=== PATIENT | female | born 1960 | race Caucasian/White ===

== ENCOUNTER 2023-05-24 09:26 | Outpatient (CLI) | payer BC, SELFPAY ==
--- NOTE | 2023-05-24 09:45 | CRLHL7_ITS ---
For Patients: As a result of the Cures Act, medical imaging exams and procedure reports are released immediately into your electronic medical record. You may view this report before your referring provider. If you have questions, please contact your health care provider. DIGITAL DIAGNOSTIC BILATERAL MAMMOGRAM USING TOMOSYNTHESIS AND COMPUTER-AIDED DETECTION LEFT BREAST ULTRASOUND CLINICAL HISTORY: LEFT breast lump. COMPARISON: 03/18/2015. TECHNIQUE: Digital BILATERAL mammogram in four projections. Tomosynthesis and CAD utilized. Real-time ultrasound imaging of LEFT breast with imaging documentation. Scanning was performed by both the technologist and the radiologist. BREAST COMPOSITION: There are areas of scattered fibroglandular density. FINDINGS: 3D CC/MLO BILATERAL mammogram images submitted. Normal breast tissue RIGHT breast. There is a lobular mass within the LEFT breast in the upper outer quadrant corresponding to the area of palpable concern. Benign calcifications are present. Targeted ultrasound LEFT breast performed. At 12 o`clock 9 cm from the nipple there is a taller than wide microlobular hypoechoic mass with distal shadowing measuring 1.5 x 2.0 x 1.6 cm. No suspicious lymph nodes in the LEFT axilla. IMPRESSION: Suspicious 2 cm mass LEFT breast 12 o`clock 9 cm from the nipple. RECOMMENDATIONS: Ultrasound-guided core needle biopsy. Results and recommendations discussed with the patient. BI-RADS Category 4: Suspicious A lay language report of this examination will be provided to the patient. Dictated by Domingo Jackson MD @ 05/24/2023 10:41:21 AM jj/Dictated by: Domingo Jackson MD @ 05/24/2023 10:41:00 AM (Electronically Signed)
--- NOTE | 2023-05-24 10:15 | CRLHL7_ITS ---
For Patients: As a result of the Cures Act, medical imaging exams and procedure reports are released immediately into your electronic medical record. You may view this report before your referring provider. If you have questions, please contact your health care provider. PLEASE SEE DIGITAL DIAGNOSTIC BILATERAL MAMMOGRAM PERFORMED SAME DAY CRL:allen villa/Dictated by: Domingo Jackson MD @ 05/24/2023 10:41:00 AM (Electronically Signed)
== END 2023-05-24 09:27 | disposition home or self-care (01) ==
LOC: MAMMO 09:27
PROVIDERS: PCP Emergency Medicine; Visit Provider Emergency Medicine
DX: N63.21 Unspecified lump in the left breast, upper outer quadrant (principal)
CPT/HCPCS: 76642; 77066; G0279

== ENCOUNTER 2023-05-30 10:48 | Outpatient (CLI) | payer BC, SELFPAY ==
--- NOTE | 2023-05-30 11:15 | CRLHL7_ITS ---
For Patients: As a result of the Century Cures Act, medical imaging exams and procedure reports are released immediately into your electronic medical record. You may view this report before your referring provider. If you have questions, please contact your health care provider. LEFT BREAST ULTRASOUND-GUIDED BIOPSY INDICATION: LEFT breast mass 12 o`clock position measuring 1.5 x 2.0 x 1.6 cm. Ultrasound-guided biopsy for diagnostic purposes. Informed consent was obtained. Benefits and risks of the procedure were discussed with the patient. Clip placement and a post-procedure mammogram were discussed with the patient. She agrees to proceed. A time-out was performed to verify correct patient and procedure. Utilizing sterile technique and 1 percent lidocaine for local anesthetic, a 14-gauge Bard biopsy gun was utilized and 5 passes were made into the 2 cm lesion 12 o`clock position 9 cm from the nipple. The patient tolerated the procedure well. No immediate complications. A post-procedure clip placement was performed without difficulty. A post-procedure mammogram will be performed. CC and true ML view of the LEFT breast performed after biopsy and clip placement. Breast composition: Heterogeneously dense. A biopsy clip was placed at the 12 o`clock position 9 cm from the nipple within the lesion. There is minor perilesional hemorrhage. The clip placement is satisfactory. IMPRESSION: 1. Technically successful ultrasound-guided LEFT breast biopsy. 2. Clip placement perfomed. 3. Post-procedure mammogram performed. Dictated by: Cezar Tena MD @05/30/2023 11:59:52 AM/ynes MELVIN/Dictated by: Cezar Tena MD @ 05/30/2023 11:59:00 AM ADDENDUM: Pathology consistent with grade III/III invasive ductal carcinoma. This is concordant. Appropriate action recommended. Dictated by: Domingo Jackson MD @06/03/2023 11:25:27 AM / CRL:jj (Electronically Signed)
--- NOTE | 2023-05-30 12:00 | CRLHL7_ITS ---
For Patients: As a result of the Century Cures Act, medical imaging exams and procedure reports are released immediately into your electronic medical record. You may view this report before your referring provider. If you have questions, please contact your health care provider. PLEASE SEE LEFT ULTRASOUND-GUIDED BIOPSY OF SAME DAY. CRL:ynes MELVIN/Dictated by: Cezar Tena MD @ 05/30/2023 12:00:00 PM (Electronically Signed)
== END 2023-05-30 10:49 | disposition home or self-care (01) ==
LOC: MAMMO 10:48
PROVIDERS: PCP Emergency Medicine; Visit Provider Emergency Medicine
DX: N63.20 Unspecified lump in the left breast, unspecified quadrant (principal); R92.8 Other abnormal and inconclusive findings on diagnostic imaging of breast
CPT/HCPCS: 19083; 77065; 88305; 88341; 88342; 88360; 88361; A4648; A4649

== ENCOUNTER 2023-06-04 15:01 | Outpatient (CLI) | payer BC, SELFPAY ==
--- NOTE | 2023-06-04 15:30 | CRLHL7_ITS ---
For Patients: As a result of the 21st Century Cures Act, medical imaging exams and procedure reports are released immediately into your electronic medical record. You may view this report before your referring provider. If you have questions, please contact your health care provider. BILATERAL BREAST MRI WITHOUT AND WITH GADOLINIUM, 06/04/2023 CLINICAL HISTORY: 62-year-old female with recently diagnosed LEFT breast cancer. INDICATION FOR BREAST MRI: Staging of newly diagnosed breast cancer and screening of contralateral breast. Regional lymph nodes will also be assessed. COMPARISON STUDIES: Mammogram, LEFT breast and axillary ultrasound 05/24/2023, ultrasound-guided biopsy and postprocedure mammogram 05/30/2023. CONTRAST: 15 cc of Dotarem. TECHNIQUE: The patient was positioned prone using a breast coil. Multiple imaging sequences were obtained using 1-1.5 mm thick slices with no gap. The image sequences include T2-weighted STIR in the axial plane, T1-weighted nonfat-saturated gradient echo in the axial plane, pre- and post-contrast T1-weighted FLASH 3D with fat suppression in the axial plane, and T1-weighted FLASH high resolution 3D with fat suppression in the sagittal plane. Image post-processing was performed on a [employer] workstation. Complex 3D rendering including maximum intensity projections (MIPS) and volumetric renderings were obtained to optimize visualization of the extent of pathology and relationship to the nipple, skin, and chest wall. This aids in determining feasibility of breast conservation surgery. Subtraction, multiplanar reconstruction, mean curve determination, and angiogenesis mapping were also performed. The study was technically adequate. FINDINGS: Amount of Fibroglandular Tissue: Scattered fibroglandular tissue. Breast Background Enhancement: Minimal. RIGHT Breast: No suspicious areas of enhancement. LEFT Breast: At 12 o`clock, middle depth, approximately 8 cm from the nipple there is an irregular mass with irregular margins and heterogeneous internal enhancement measuring 1.4 x 2.3 x 2.7 cm. This demonstrates fast initial enhancement with washout. Artifact from a biopsy marker clip is seen within the mass. This is consistent with the biopsy-proven malignancy. Lymph Nodes: No adenopathy. IMPRESSIONS AND RECOMMENDATIONS: LEFT Breast: 1. Mass at 12 o`clock, middle depth measuring up to 2.7 cm on MRI is consistent with the biopsy-proven malignancy. No additional suspicious areas of enhancement. 2. No adenopathy. RIGHT Breast: No MRI evidence of contralateral malignancy. BI-RADS Category 6: Known biopsy-proven malignancy Dictated by Eli Lawson MD @ 06/06/2023 1:22:54 PM jj/Dictated by: Eli Lawson MD @ 06/06/2023 1:22:00 PM (Electronically Signed)
== END 2023-06-04 15:02 | disposition home or self-care (01) ==
PROVIDERS: PCP Emergency Medicine; Visit Provider Surgery
DX: C50.912 Malignant neoplasm of unspecified site of left female breast (principal)
CPT/HCPCS: 77049; A9575

== ENCOUNTER 2023-06-13 09:30 | Outpatient (CLI) | payer BC, SELFPAY | END 2023-06-13 09:31 | disposition home or self-care (01) | LOC: LKVREF 09:30 | PROVIDERS: PCP Emergency Medicine; Visit Provider Emergency Medicine | DX: Z01.818 Encounter for other preprocedural examination (principal); E03.9 Hypothyroidism, unspecified; E10.9 Type 1 diabetes mellitus without complications | CPT/HCPCS: 84443 ==

== ENCOUNTER 2023-06-14 16:23 | Outpatient (CLI) | payer BC, SELFPAY | END 2023-06-14 16:24 | disposition home or self-care (01) | LOC: NFLDREF 06-15 12:52 | PROVIDERS: PCP Emergency Medicine; Referring Provider Emergency Medicine; Visit Provider Emergency Medicine | DX: E87.5 Hyperkalemia (principal) | CPT/HCPCS: 84132 ==

== ENCOUNTER 2023-06-18 07:36 | Day surgery (SDC) | payer BC, SELFPAY ==
[2023-06-18] MEDS: LACTATED RINGERS 1000 ML 1,000 ML 100 ML IV (07:50)
[2023-06-18 07:53] VITALS: BP 141/81; PULSE 76; RESP 16; TEMP 36.6; O2SAT 97; BMI 28.4
[2023-06-18] MEDS: SODIUM CHLORIDE 0.9 % (FLUSH) 10 ML SYRINGE IVF (08:03)
--- NOTE | 2023-06-18 09:00 | CRLHL7_ITS ---
For Patients: As a result of the Century Cures Act, medical imaging exams and procedure reports are released immediately into your electronic medical record. You may view this report before your referring provider. If you have questions, please contact your health care provider. INDICATION: Left-sided breast cancer. Injection for sentinel lymph node scintigraphy. PROCEDURE: Informed consent was obtained by the on-site staff. The benefits and risks of the injection were discussed with the patient. The patient agreed to proceed. The on-site staff utilized sterile technique and 1 percent xylocaine for local anesthetic. Subsequently, 550 microcuries of technetium filtered sulfur colloid was injected within an intradermal location within the superior lateral left breast. No immediate complications documented. No subsequent imaging. IMPRESSION: Left breast injection for sentinel lymph node scintigraphy. Dictated by Cezar Tena MD @ 06/18/2023 4:21:32 PM (Electronically Signed)
--- NOTE | 2023-06-18 09:11 | W.ANESCHARGE ---
Anesthesia Charges Start Date/Time Anesthesia Start Date: 06/18/23 Anesthesia Start Time: 10:30 Stop Date/Time Anesthesia Stop Date: 06/18/23 Anesthesia Stop Time: 14:11
--- NOTE | 2023-06-18 09:15 | CRLHL7_ITS ---
For Patients: As a result of the Cures Act, medical imaging exams and procedure reports are released immediately into your electronic medical record. You may view this report before your referring provider. If you have questions, please contact your health care provider. BREAST WIRE LOCALIZATION USING ULTRASOUND GUIDANCE CLINICAL HISTORY: Biopsy-proven malignancy LEFT breast. LATERALITY: LEFT breast. LESION: Taller than wide hypoechoic solid mass 12 o`clock 9 cm from the nipple measuring 1.5 x 2.0 x 1.6 cm. LOCALIZATION WIRE: Kopans hookwire. TECHNIQUE: The localization wire was placed using real-time ultrasound guidance with image documentation. Cranial-caudal and medial-lateral digital mammograms were obtained after localization wire placement. CONSENT and TIME OUT: The procedure, risks, and alternatives were explained to the patient and a consent was signed. [place] Protocol was followed including pre-procedure verification that relevant information/documentation was available, reviewed and properly matched to the patient; consent accurate and complete; and equipment and supplies available. Time Out was conducted just prior to starting procedure to verify the four required elements: patient identity, correct side/site marked (if applicable), procedure, relevant images/results properly labeled and displayed (if applicable). PROCEDURE: The skin was prepped with ChloraPrep and 6 cc of 1% lidocaine was injected for local anesthesia. The localization wire was placed within or near the targeted breast lesion using ultrasound guidance. The patient tolerated the procedure well. PROXIMITY OF WIRE TO LESION: Within the lesion immediately adjacent to the clip. IMPRESSION: Successful breast wire localization. ACR not applicable Dictated by Domingo Jackson MD @ 06/18/2023 10:38:48 AM/ynes MELVIN/Dictated by: Domingo Jackson MD @ 06/18/2023 10:38:00 AM (Electronically Signed)
--- NOTE | 2023-06-18 10:00 | CRLHL7_ITS ---
For Patients: As a result of the Century Cures Act, medical imaging exams and procedure reports are released immediately into your electronic medical record. You may view this report before your referring provider. If you have questions, please contact your health care provider. PLEASE SEE LEFT ULTRASOUND-GUIDED BIOPSY OF SAME DAY. CRL:ynes MELVIN/Dictated by: Domingo Jackson MD @ 06/18/2023 10:38:00 AM (Electronically Signed)
[2023-06-18] MEDS: CEFAZOLIN 2 GM INJ IVP (10:35)
[2023-06-18] MEDS: ISOSULFAN BLUE 5 ML VIAL INJECTION (10:41)
[2023-06-18] MEDS: BUPIVACAINE 0.5% 30 ML INJECTION ×2 (10:54→13:30)
[2023-06-18] MEDS: LIDOCAINE 1 % PF 30 ML INJECTION ×2 (10:54→13:30)
--- NOTE | 2023-06-18 11:51 | CRLHL7_ITS ---
For Patients: As a result of the Cures Act, medical imaging exams and procedure reports are released immediately into your electronic medical record. You may view this report before your referring provider. If you have questions, please contact your health care provider. LEFT BREAST SPECIMEN CLINICAL HISTORY: Left breast cancer. COMPARISON: 05/24/2023. FINDINGS: Two views LEFT breast specimen demonstrates the biopsied mass, localization wire and biopsy clip. IMPRESSION: The biopsied mass, wire and clip were all located within the specimen. ACR not applicable. Dictated by Domingo Jackson MD @ 06/18/2023 12:08:01 PM/ynes MELVIN/Dictated by: Domingo Jackson MD @ 06/18/2023 12:08:00 PM (Electronically Signed)
--- NOTE | 2023-06-18 13:34 | CRLHL7_ITS ---
For Patients: As a result of the Century Cures Act, medical imaging exams and procedure reports are released immediately into your electronic medical record. You may view this report before your referring provider. If you have questions, please contact your health care provider. Indication: Port placement Technique: Single fluoroscopic image of the chest. Fluoroscopic time 55.4 seconds. IMPRESSION: Fluoroscopic guidance for right-sided port placement. Dictated by Domingo Jackson MD @ 06/19/2023 12:34:46 PM (Electronically Signed)
[2023-06-18] MEDS: HEPARIN 500 UNIT/5 ML SYRINGE IVF (13:51)
[2023-06-18] MEDS: 0.9 % SODIUM CHLORIDE 50 ml INJECTION (13:51)
[2023-06-18 14:10] VITALS: BP 95/53; PULSE 57; RESP 20; TEMP 36.4; O2SAT 89
--- NOTE | 2023-06-18 14:10 | W.ANESCHARGE ---
Anesthesia Charges Start Date/Time Anesthesia Start Date: 06/18/23 Anesthesia Start Time: 10:30 Stop Date/Time Anesthesia Stop Date: 06/18/23 Anesthesia Stop Time: 14:11
--- NOTE | 2023-06-18 14:16 | P.GSOP_ITS ---
Operative Note Pre-op diagnosis: Invasive ductal carcinoma, left breast Post-op diagnosis: Same Type of Procedure: 1. Wire localized lumpectomy of left breast cancer 2. Injection of nuclear medicine tracer 3. Mulliken lymph node biopsy 4. Right internal jugular port a catheter placement Indications: Patient is a 63-year-old female who was seen in clinic for newly diagnosed invasive ductal carcinoma of the left breast. Please see Oncology note and consultation note for full discussion regarding treatment options. Risks and benefits of all portions of the procedure stated above were discussed at length the patient. Risks and benefits of operative intervention were discussed at length with the patient. Risks included but was not limited to: Bleeding, infection, risk of damage to surrounding structures, specifically we discussed risk of damage to nerves within the axilla and pulmonary injury during port placement. We also reviewed the possible need for additional procedures, specifically in the setting of positive margins, risk of hematoma, seroma or lymphatic leak and postoperative complications such as pneumonia, pulmonary emboli or IA. All questions and concerns were addressed with the patient agreeing to proceed. Procedure Description: Prior to arrival in the operating room, the patient was taken to radiology where a wire was placed to localize the previously placed clip. In the same Day surgery Center I performed injection of a radiocolloid. The patient was then brought to the operating room where anesthesia was induced. I injected 3 ml of lymphazurin blue and performed breast massage for a period of 5 minutes. The left breast and axilla were prepped and draped in the usual sterile fashion. Timeout was confirmed. Local anesthesia was infiltrated into a transverse incision in the upper outer portion of the breast. Using electrocautery, the segment of breast tissue containing the tip of the wire was excised. This was sent for evaluation. Radiology called back and confirmed that the clip, and wire were present within the specimen. Pathology then called back and stated that margins were close on the anterior-medial and superior borders, so requested an additional specimen. Using electrocautery I reexcised the anterior, medial and superior border of the cavity. This was inked for identification and sent for permanent evaluation. We then elected to perform the sentinel node aspect of the procedure. Using the neoprobe, the area of maximal counts was identified. I was able to use the same transverse incision of the upper outer portion of the left breast. Using a combination of blunt dissection and electrocautery, a hot and blue node was resected. One additional node was resected in a similar fashion, taking care to tie off and cauterize the lymphatics. These were sent to pathology for permanent evaluation. The wounds were irrigated and all irrigant suctioned from the wound. Circu mferential undermining of the remaining breast tissue was performed so that tissue could fill the resulting cavity and minimize any cosmetic defects. Hemostasis was assured with electrocautery. Clarissa was placed within the breast cavity. 4 clips were placed around the cavity to help assist with identification for radiation. The wound was then closed in layers using absorbable suture, and Dermbond was placed over the wound. We then removed all dirty equipment and redraped for the second portion of the procedure. The operative field was prepped and draped in usual sterile fashion. The patient's right internal jugular vein was visualized using ultrasound. Local anesthetic was injected into the neck skin above the vein. A skin marty was made and the vein accessed percutaneously via Seldinger technique using ultrasound guidance. Placement into the vein was confirmed with C-arm. Next local anesthetic was injected into the skin below the clavicle and along the proposed tract to the neck incision. A skin incision was then made with a 15 blade and a pocket created in the chest wall with cautery. A tunneler was then used to thread the catheter from the chest wall pocket to the neck incision. Once this was done fluoroscopy was brought into the field. Over the wire the tract was dilated using fluoroscopy. The wire and the dilator were then removed leaving the sheath intact in the vein. Through this the catheter was threaded. Using fluoroscopy the catheter was positioned into the distal SVC. The catheter was noted to flush and aspirate easily. The catheter was then connected to the port. The port was placed in the pocket, which snugly fit the port and no stay sutures were placed. It was noted to flush and aspirate easily. This was then locked with heparinized saline. The skin was closed with absorbable suture. Sterile dressings were applied. Instrument sponge and needle counts were correct at the end of the case. The patient was woken and taken to the PACU in stable condition. Findings: Left breast where localized lumpectomy. Pathology confirmed negative margins. Mulliken node biopsy was performed using Isosulfan blue dye and radiotracer; all identified blue and significantly radioactive nodes as well as any additional suspicious nodes were removed. Successful placement of a right internal jugular port a catheter. Anesthesia: MAC and local Surgeon: Danelle Lo MD Estimated blood loss (mL): 100 Additional Specimen Information: 1. Left breast mass 2. Mulliken lymph node 1 3. Mulliken lymph node 2 Condition: stable Disposition: same day Date of procedure: 06/18/23
[2023-06-18 14:25] VITALS: BP 135/75; PULSE 71; RESP 20; TEMP 36.4; O2SAT 96
[2023-06-18 14:40] VITALS: BP 144/75; PULSE 70; RESP 20; O2SAT 96
[2023-06-18 14:55] VITALS: BP 137/74; PULSE 72; RESP 20; TEMP 36.4; O2SAT 97
== END 2023-06-18 15:27 | disposition home or self-care (01) ==
PROVIDERS: PCP Emergency Medicine; Visit Provider Surgery
PROC: (CPT 19125; principal; 2023-06-18 10:15)
PROC: (CPT 19125; 2023-06-18 10:15)
PROC: (CPT 19125; 2023-06-18 10:15)
DX: C50.812 Malignant neoplasm of overlapping sites of left female breast (principal); Z17.1 Estrogen receptor negative status [ER-]; Z45.2 Encounter for adjustment and management of vascular access device
CPT/HCPCS: 19125; 36561; 38500; 1610; 19285; 38792; 71045; 76000; 77065; 82962; 88305; 88307; A9541; C1769; C1788; J0665; J0690; J1100; J1642; J1885; J2001; J2405; J2704; J3010; J3490; J7120

== ENCOUNTER 2023-07-19 12:44 | Outpatient (CLI) | payer BC, SELFPAY | END 2023-07-19 12:45 | disposition home or self-care (01) | LOC: RAD 12:45 | PROVIDERS: PCP Emergency Medicine; Visit Provider Internal Medicine Hematology & Oncology | DX: C50.912 Malignant neoplasm of unspecified site of left female breast (principal); I35.0 Nonrheumatic aortic (valve) stenosis; Z01.818 Encounter for other preprocedural examination | CPT/HCPCS: 93306 ==

== ENCOUNTER 2023-07-19 15:30 | Outpatient (RCR) | payer BC, SELFPAY | END 2023-11-16 23:59 | disposition home or self-care (01) | PROVIDERS: PCP Emergency Medicine; Visit Provider Surgery | DX: C50.911 Malignant neoplasm of unspecified site of right female breast (principal); R29.3 Abnormal posture; Z51.89 Encounter for other specified aftercare | CPT/HCPCS: 97162; 97165; 97535 ==

== ENCOUNTER 2023-08-21 15:57 | Outpatient (CLI) | payer BC, SELFPAY | END 2023-08-21 15:58 | disposition home or self-care (01) | LOC: NFLDREF 08-23 10:37 | PROVIDERS: PCP Emergency Medicine; Referring Provider Emergency Medicine; Visit Provider Internal Medicine Hematology & Oncology | DX: C50.912 Malignant neoplasm of unspecified site of left female breast (principal) | CPT/HCPCS: 80053 ==

== ENCOUNTER 2023-10-17 09:54 | Outpatient (CLI) | payer BC, SELFPAY ==
--- OUTSIDE RECORDS SUMMARY | 2023-10-17 10:04 | XMS_ITS | Clinical Summary ---
Author Name Unknown Organization [facility] Address [address] [place] [address]. [place] [address] Care Team Providers Care Power Plant Inspector Name Role Phone No Ref-Primary, Physician Primary Care Provider Allergies No known active allergies Medications Medication Sig Dispensed Refills Start Date End Date Status azithromycin (ZITHROMAX) 250 MG tabletIndications:Bro nchitis 2 tablets day 1 then 1 tablet daily for 4 days 6 tablet 0 12/05/2019 Active Active Problems No known active problems Social History Tobacco Use Types Packs/Day Years Used Date Smoking Tobacco: Never Smokeless Tobacco: Never Adolescent Education Answer Date Record ed Getting School Help Needed Not on file 06/29 Sex and Gender Information Value Date Recorded Sex Assigned at Not on file Gender Identity Not on file Sexual Orientation Not on file Last Filed Vital Signs Vital Sign Reading Time Taken Comments Blood Pressure 124/78 12/05/2019 2:59 PM FIREPERSON Pulse 84 12/05/2019 2:59 PM FIREPERSON Temperature 37.8 ??C (100 ??F) 12/05/2019 2:59 PM FIREPERSON Respiratory Rate 16 12/05/2019 2:59 PM FIREPERSON Oxygen Saturation 96% 12/05/2019 2:59 PM FIREPERSON Inhaled Oxygen Concentration - - Weight 68 kg (150 lb) 12/05/2019 2:59 PM FIREPERSON Height - - Body Mass Index - - Plan of Treatment Health Maintenance Due Date Last Done Comments ADVANCE CARE PLANNING 1960 ANNUAL REVIEW OF HM ORDERS 1961 CT COLONOGRAPHY 1961 FIT 1961 FLEX SIG 1961 MAMMO SCREENING 1961 YEARLY PREVENTIVE VISIT 1961 sDNA (Cologuard) 1961 COVID-19 Vaccine (#1) 1961 COLONOSCOPY 1971 COLORECTAL CANCER SCREENING 1971 HIV SCREENING 1976 HEPATITIS C SCREENING 1979 DTAP/TDAP/TD IMMUNIZATION (1 - Tdap) 1986 LIPID 2006 ZOSTER IMMUNIZATION (1 of 2) 2011 RSV VACCINE ( & 60+ ) (1 - 1-dose 60+ series) 2021 INFLUENZA VACCINE (#1) 2023 PHQ-2 (once per calendar year) 2023 HPV TEST 05/10/2027 05/10/2022, 05/10/2022 PAP 05/10/2027 05/10/2022 HPV IMMUNIZATION Aged Out No longer e ligible based on patient's age to complete this topic IPV IMMUNIZATION Aged Out No longer e ligible based on patient's age to complete this topic MENINGITIS IMMUNIZATION Aged Out No l onger eligible based on patient's age to complete this topic Pneumococcal Vaccine: Pediatrics (0 to 5 Years) and At-Risk Patients (6 to 64 Years) Aged Out No longer eligible b ased on patient's age to complete this topic RSV MONOCLONAL ANTIBODY Aged Out No l onger eligible based on patient's age to complete this topic Care Teams Power Plant Inspector Relationship Specialty Start Date End Date No Ref-Primary, Physician PCP - General 12/05/19
--- OUTSIDE RECORDS SUMMARY | 2023-10-17 10:05 | XMS_ITS | Referral Summary ---
Author Name Unknown Organization [facility] Address [address] [place] [address]. [place] [address] Care Team Providers Care Water Supply Technician Name Role Phone No Ref-Primary, Physician Primary [...] Comments Blood Pressure 124/78 12/05/2019 2:59 PM PAYROLL CLERK Pulse 84 12/05/2019 2:59 PM PAYROLL CLERK Temperature 37.8 ??C (100 ??F) 12/05/2019 2:59 PM PAYROLL CLERK Respiratory Rate 16 12/05/2019 2:59 PM PAYROLL CLERK Oxygen Saturation 96% 12/05/2019 2:59 PM PAYROLL CLERK Inhaled Oxygen Concentration - - Weight 68 kg (150 lb) 12/05/2019 2:59 PM PAYROLL CLERK Height - - Body Mass Index - - Plan of Treatment Not on file Care Teams Water Supply Technician Relationship Specialty Start Date End Date No Ref-Primary, Physician PCP - General 12/05/19
--- OUTSIDE RECORDS SUMMARY | 2023-10-17 10:05 | XMS_ITS | Clinical Summary ---
Author Name Unknown Organization Count includes the [facility] Address [address] [place] [address] Care Team Providers Care Net Programmer Name Role Phone Unavailable Primary Care Provider Unavailabl e Source Comments You are receiving this document as you are listed as the primary care provider,follow-up provider, or the patient has been referred to you for consultation.This is in compliance with the Medicare and[facility] E[facility] Incentive Program,which states Providers who transition their patient to another setting of careor provider of care or refers their patient to another provider of care shouldprovide summary care record for each transition of care or referral. [facility] Allergies No known active allergies Medications Medication Sig Dispensed Refills Start Date End Date Status insulin isophane (NOVOLIN N) 100 UNIT/ML injection Inject subcutaneously daily. 40 units AM, 12 units PM 0 Active insulin regular (NOVOLIN R) 100 UNIT/ML injection Inject 7 Units subcutaneously daily. Before dinner 0 Active blood glucose (ACCU-CHEK GUIDE) test stripIndications:C ontrolled type 1 diabetes mellitus without complication ([facility]) Use 1 Each to test as needed for Blood Sugar >. Use as directed. 100 Strip 11 06/29/2021 Active lancets (ACCU-CHEK SOFTCLIX)Indicatio ns:Controlled type 1 diabetes mellitus without complication ([facility]) Use 1 Each to test three times a day. 100 Each 11 06/29/2021 Active lancet deviceIndications: Controlled type 1 diabetes mellitus without complication ([facility]) Use 1 Each to test as needed. 1 Each 0 06/29/2021 Active levothyroxine (SYNTHROID) 100 MCG tabletIndications: Hypothyroidism (acquired) ([facility]) Take 1 Tablet by mouth daily. 90 Tablet 3 06/30/2021 Active Social History Tobacco Use Types Packs/Day Years Used Date Smoking Tobacco: Never Smokeless Tobacco: Never Sex and Gender Information Value Date Recorded Sex Assigned at Not on file Gender Identity Not on file Sexual Orientation Not on file Last Filed Vital Signs Vital Sign Reading Time Taken Comments Blood Pressure 194/98 06/29/2021 2:02 PM CDT Pulse 83 06/29/2021 2:02 PM CDT Temperature - - Respiratory Rate - - Oxygen Saturation - - Inhaled Oxygen Concentration - - Weight 68.3 kg (150 lb 8 oz) 06/29/2021 2:02 PM CDT Height 161.3 cm (5' 3.5) 06/29/2021 2:02 PM CDT Body Mass Index 26.24 06/29/2021 2:02 PM CDT Plan of Treatment Health Maintenance Due Date Last Done Comments Cervical Cancer Screening Due 1961 Colon Cancer Screening Plan Due 1961 Diabetes: Eye Exam 1961 Diabetes: Foot Exam 1961 Hep C Screening (Preventive Services) 1961 Mammogram 1961 COVID-19 Vaccine (#1) 1961 Pneumococcal (1 - PCV) 1967 HIV Screening (Preventive Services) 1977 Adult Preventive Visit 1979 Zoster/Shingles (1 of 2) 2011 Diabetes: HGBA1C 09/28/2021 06/29/2021 Diabetes: Creatinine 06/29/2022 06/29/2021 Diabetes: Urine Microalbumin 06/29/2022 06/29/2021 Influenza (#1) 2023 DTaP/Tdap/Td (2 - Tdap) 02/09/2025 02/09/2015 Diabetes: Lipid Panel 06/29/2026 06/29/2021 Cholesterol Discontinued 06/29/2021 HepA Aged Out No longer eligi ble based on patient's age to complete this topic HepB Aged Out No longer eligi ble based on patient's age to complete this topic Hib Aged Out No longer eligi ble based on patient's age to complete this topic IPV (Polio) Aged Out No longer eligi ble based on patient's age to complete this topic MCV4 Aged Out No longer eligi ble based on patient's age to complete this topic
== END 2023-10-17 09:55 | disposition home or self-care (01) ==
LOC: LAB 09:56
PROVIDERS: PCP Emergency Medicine; Visit Provider Physician Assistant
DX: C50.912 Malignant neoplasm of unspecified site of left female breast (principal)
CPT/HCPCS: 36415; 83735

== ENCOUNTER 2023-10-31 13:46 | Outpatient (CLI) | payer BC, SELFPAY ==
--- OUTSIDE RECORDS SUMMARY | 2023-10-31 13:48 | XMS_ITS | Clinical Summary ---
Author Name Unknown Organization [place] Address [facility] [place] [address] Care Team Providers Care Corporate Real Estate Manager Name Role Phone No Ref-Primary, Physician Primary [...] Comments Blood Pressure 124/78 12/05/2019 2:59 PM FIRE DISPATCHER Pulse 84 12/05/2019 2:59 PM FIRE DISPATCHER Temperature 37.8 ??C (100 ??F) 12/05/2019 2:59 PM FIRE DISPATCHER Respiratory Rate 16 12/05/2019 2:59 PM FIRE DISPATCHER Oxygen Saturation 96% 12/05/2019 2:59 PM FIRE DISPATCHER Inhaled Oxygen Concentration - - Weight 68 kg (150 lb) 12/05/2019 2:59 PM FIRE DISPATCHER Height - - Body Mass Index - - Plan of Treatment Health Maintenance Due Date Last Done Comments ADVANCE CARE PLANNING 1960 ANNUAL REVIEW OF HM ORDERS 1961 CT COLONOGRAPHY 1961 FIT 1961 FLEX SIG 1961 MAMMO SCREENING 1961 YEARLY PREVENTIVE VISIT 1961 sDNA (Cologuard) 1961 COLONOSCOPY 1971 COLORECTAL CANCER SCREENING 1971 HIV SCREENING 1976 HEPATITIS C SCREENING 1979 LIPID 2006 RSV VACCINE ( & 60+ ) (1 - 1-dose 60+ series) 2021 COVID-19 Vaccine (4 - 2022-2 4 season) 2023 09/12/2021, 01/14/2021, 12/24/2020 INFLUENZA VACCINE (#1) 2023 PHQ-2 (once per calendar year) 2023 DTAP/TDAP/TD IMMUNIZATION (2 - Td or Tdap) 02/09/2025 02/09/2015 HPV TEST 05/10/2027 05/10/2022, 05/10/2022 PAP 05/10/2027 05/10/2022 ZOSTER IMMUNIZATION Completed 07/28/2022, 04/21/2022 HPV IMMUNIZATION Aged Out No longer e [...] on patient's age to complete this topic Procedures Procedure Name Priority Date/Time Associated Diagnosis Comments VITAMIN B12 Routine 10/22/2023 8:25 AM FIRE DISPATCHER Anemia, unspecified from Last 3 Months Results * (ABNORMAL) Vitamin B12 (10/22/2023 8:25 AM FIRE DISPATCHER) Vitamin B12 3,345(H) 232 - 1,245 pg/mL 10/23/2023 9:13 PM FIRE DISPATCHER [facility] Blood TOPOGRAPHY UNKNOWN / Unknown Client Draw / Unknown 10/22/2023 8:25 AM FIRE DISPATCHER 10/22/2023 5:15 PM FIRE DISPATCHER Jennie Henley MD LAB - BLOOD ORDERABL ES [facility] [address] [facility] [address] [place] [address], [facility] [phone] from Last 3 Months Care Teams Corporate Real Estate Manager Relationship Specialty Start Date End Date No Ref-Primary, Physician PCP - General 12/05/19
--- OUTSIDE RECORDS SUMMARY | 2023-10-31 13:48 | XMS_ITS | Clinical Summary ---
Author Name Unknown Organization [facility] Address [address] [place] [address] Care Team Providers Care Packaging Machine Supplies Distributor Name Role Phone Unavailable Primary Care Provider Unavailabl e Source Comments You are receiving this document as you are listed as the primary care provider,follow-up provider, or the patient has been referred to you for consultation.This is in compliance with the Medicare and[facility],which states Providers who transition their patient to another setting of careor provider of care or refers their patient to another provider of care shouldprovide summary care record for each transition of care or referral. [facility] Allerg[facility] No known active allergies Medications Medication Sig Dispensed Refills Start Date End Date Status insulin isophane (NOVOLIN N) 100 UNIT/ML injection Inject subcutaneously daily. 40 units AM, 12 units PM 0 Active insulin regular (NOVOLIN R) 100 UNIT/ML injection Inject 7 Units subcutaneously daily. Before dinner 0 Active blood glucose (ACCU-CHEK GUIDE) test stripIndications:C ontrolled type 1 diabetes mellitus without complication ([facility]) Use 1 Each to test as needed for Blood Sugar >. Use as directed. 100 Strip 11 06/29/2021 Active lancets (ACCU-CHEK SOFTCLIX)Indicatio ns:Controlled type 1 diabetes mellitus without complication ([facility]) Use 1 Each to test three times a day. 100 Each 11 06/29/2021 Active lancet deviceIndications: Controlled type 1 diabetes mellitus without complication ([facility]) Use 1 Each to test as needed. 1 Each 0 06/29/2021 Active levothyroxine (SYNTHROID) 100 MCG tabletIndications: Hypothyroidism (acquired) ([facility]) Take 1 Tablet by mouth daily. 90 [...]
--- OUTSIDE RECORDS SUMMARY | 2023-10-31 13:48 | XMS_ITS | Referral Summary ---
Author Name Unknown Organization [place] Address [facility] [place] [address] Care Team Providers Care Pyrometer Mechanic Name Role Phone No Ref-Primary, Physician Primary [...] Comments Blood Pressure 124/78 12/05/2019 2:59 PM SOCIAL MEDIA PROJECT MANAGER Pulse 84 12/05/2019 2:59 PM SOCIAL MEDIA PROJECT MANAGER Temperature 37.8 ??C (100 ??F) 12/05/2019 2:59 PM SOCIAL MEDIA PROJECT MANAGER Respiratory Rate 16 12/05/2019 2:59 PM SOCIAL MEDIA PROJECT MANAGER Oxygen Saturation 96% 12/05/2019 2:59 PM SOCIAL MEDIA PROJECT MANAGER Inhaled Oxygen Concentration - - Weight 68 kg (150 lb) 12/05/2019 2:59 PM SOCIAL MEDIA PROJECT MANAGER Height - - Body Mass Index - - Plan of Treatment Not on file Procedures Procedure Name Priority Date/Time Associated Diagnosis Comments VITAMIN B12 Routine 10/22/2023 8:25 AM SOCIAL MEDIA PROJECT MANAGER Anemia, unspecified from Last 3 Months Results * (ABNORMAL) Vitamin B12 (10/22/2023 8:25 AM SOCIAL MEDIA PROJECT MANAGER) Vitamin B12 3,345(H) 232 - 1,245 pg/mL 10/23/2023 9:13 PM SOCIAL MEDIA PROJECT MANAGER [facility] Blood TOPOGRAPHY UNKNOWN / Unknown Client Draw / Unknown 10/22/2023 8:25 AM SOCIAL MEDIA PROJECT MANAGER 10/22/2023 5:15 PM SOCIAL MEDIA PROJECT MANAGER Jennie Henley MD LAB - BLOOD ORDERABL ES [facility] [address] [facility], [address] [place] [address], [facility] [phone] from Last 3 Months Care Teams Pyrometer Mechanic Relationship Specialty Start Date End Date No Ref-Primary, Physician PCP - General 12/05/19
== END 2023-10-31 13:47 | disposition home or self-care (01) ==
LOC: RAD 13:46
PROVIDERS: PCP Emergency Medicine; Visit Provider Internal Medicine Hematology & Oncology
DX: Z51.81 Encounter for therapeutic drug level monitoring (principal); I35.0 Nonrheumatic aortic (valve) stenosis; I07.1 Rheumatic tricuspid insufficiency; Z79.899 Other long term (current) drug therapy
CPT/HCPCS: 93306

== ENCOUNTER 2023-12-05 08:15 | Outpatient (RCR) | payer BC, SELFPAY ==
--- NOTE | 2023-07-09 13:08 | URNOTE ---
Per [place] at [facility], Carboplatin (J9045), Docetaxel ([id number]), and Neulast (J2506) have been approved x 6 doses. Trastuzumab (J9355) and Pertuzumab (J9306) have been approved x 17 doses. Fosaprepitant (J1453) and Palonosetron (2469) do not require prior authorization. 07/23/2023-07/14/2024 Order/auth #[id number]
[2023-07-19 15:11] LABS: Basophils Absolute Auto 0.04 K/uL (0.00-0.30); Basophils Percent Auto 0.7 % (0.0-3.0); Eosinophils Absolute Auto 0.17 K/uL (0.00-0.50); Eosinophils Percent Auto 2.8 % (0.0-7.0); Hematocrit 40.9 % (33.0-51.0); Hemoglobin* 13.6 gm/dL (12.0-16.0); Immature Granulocytes Abs Auto 0.06 K/uL (0.00-0.30); Lymphocytes Absolute Auto 1.77 K/uL (0.90-2.90); Lymphocytes Percent Auto 28.8 % (20-44); Mean Corpuscular HGB Conc 33 gm/dL (32-36); Mean Corpuscular Hemoglobin 31 pg (26-34); Mean Corpuscular Volume 92 fL (80-100); Monocytes Percent Auto 9.6 % (0.0-11.0); Neutrophils Absolute Auto 3.51 K/uL (1.7-7.0); Neutrophils Percent Auto 57.1 % (42.0-72.0); Platelet Count* 222 K/uL (140-440); Red Blood Count 4.43 m/uL (4.00-5.20); White Blood Count* 6.14 K/uL (4.50-11.00)
[2023-07-19 15:15] LABS: Slide Review Reflex No
--- NOTE | 2023-07-19 15:24 | ONC.NURNOTE ---
I met with patient and her spouse Daniel for chemotherapy teaching. Contents of the chemotherapy binder were reviewed. Side effects of treatment were discussed and patient was instructed on what to report to provider and how to contact the provider office. Patient verbalizes understanding of plan.
[2023-07-19 15:33] LABS: Albumin* 4.4 g/dL (3.3-5.0); Chloride* 101 mmol/L (96-114)
[2023-07-19 15:34] LABS: Potassium* 4.2 mmol/L (3.6-5.1); Sodium* 140 mmol/L (135-149)
[2023-07-19 15:36] LABS: Anion Gap 9 mEq/L (7-15); Bilirubin Total* 0.4 mg/dL (0.1-1.5); Carbon Dioxide* 30 mmol/L (20-32); Creatinine* 0.9 mg/dL (0.5-1.5); Est. Creatinine Clearance* 48.25; Estimated Glomerular Filt Rate 72 ml/min; Total Protein* 7.8 g/dL (6.0-8.3)
[2023-07-19 15:37] LABS: Alanine Aminotransferase* 28 U/L (4-35); Alkaline Phosphatase* 86 U/L (40-150); Aspartate Amino Transferase* 31 U/L (12-35); Blood Urea Nitrogen* 22 mg/dL (7-30); Calcium* 9.7 mg/dL (8.4-10.6); Glucose* 234 mg/dL (60-115)
[2023-07-23 08:15] VITALS: BP 148/80; PULSE 85; RESP 16; TEMP 36.6; O2SAT 97
[2023-07-23] MEDS: PERTUZUMAB 840 MG, TUBING SECONDARY 1 EACH in 0.9 % SODIUM CHLORIDE 250 ml 250 ML 278 MG IV (09:03)
[2023-07-23] MEDS: dexAMETHasone 10 MG in 0.9 % SODIUM CHLORIDE 100 ml 100 ML 404 MG IVPB (11:52)
[2023-07-23] MEDS: PALONOSETRON 0.25 MG/5 ML inj IV (11:52)
[2023-07-23] MEDS: FOSAPREPITANT 150 MG inj 150 MG in 0.9 % SODIUM CHLORIDE 250 ml 250 ML 780 MG IVPB (12:16)
[2023-07-23] MEDS: SODIUM CHLORIDE 0.9 % (FLUSH) 10 ML SYRINGE IVF (15:00)
[2023-07-23] MEDS: HEPARIN 500 UNIT/5 ML SYRINGE IVF (15:00)
[2023-08-12 14:42] LABS: Basophils Percent Auto 1.6 % (0.0-3.0); Eosinophils Percent Auto 0.9 % (0.0-7.0); Hematocrit 37.8 % (33.0-51.0); Hemoglobin* 12.5 gm/dL (12.0-16.0); Immature Granulocytes Pct Auto 1.4 %; Lymphocytes Percent Auto 32.9 % (20-44); Mean Corpuscular HGB Conc 33 gm/dL (32-36); Mean Corpuscular Hemoglobin 31 pg (26-34); Mean Corpuscular Volume 94 fL (80-100); Monocytes Percent Auto 14.1 % (0.0-11.0); Neutrophils Percent Auto 49.1 % (42.0-72.0); Platelet Count* 205 K/uL (140-440); RDW Coefficient of Variation % 12.8 % (11.5-15.5); Red Blood Count 4.02 m/uL (4.00-5.20); White Blood Count* 4.26 K/uL (4.50-11.00)
[2023-08-12 14:45] LABS: Chloride* 104 mmol/L (96-114)
[2023-08-12 14:46] LABS: Sodium* 136 mmol/L (135-149)
[2023-08-12 14:48] LABS: Alkaline Phosphatase* 91 U/L (40-150); Anion Gap 6 mEq/L (7-15); Aspartate Amino Transferase* 61 U/L (12-35); Bilirubin Total* 0.4 mg/dL (0.1-1.5); Carbon Dioxide* 26 mmol/L (20-32); Creatinine* 0.9 mg/dL (0.5-1.5); Est. Creatinine Clearance* 48.25; Estimated Glomerular Filt Rate 72 ml/min
[2023-08-12 14:49] LABS: Alanine Aminotransferase* 58 U/L (4-35); Blood Urea Nitrogen* 16 mg/dL (7-30); Calcium* 8.5 mg/dL (8.4-10.6)
[2023-08-12 14:57] LABS: Slide Review Reflex No
[2023-08-12 15:45] LABS: Glucose* 169 mg/dL (60-115)
[2023-08-14 08:11] VITALS: BP 144/75; PULSE 94; RESP 16; TEMP 36; O2SAT 97
[2023-08-14] MEDS: PERTUZUMAB 420 MG, TUBING SECONDARY 1 EACH in 0.9 % SODIUM CHLORIDE 250 ml 250 ML 528 MG IV (08:50)
[2023-08-14] MEDS: SODIUM CHLORIDE 0.9 % (FLUSH) 10 ML SYRINGE IVF ×2 (08:51→13:59)
[2023-08-14] MEDS: PALONOSETRON 0.25 MG/5 ML inj IV (10:43)
[2023-08-14] MEDS: dexAMETHasone 10 MG in 0.9 % SODIUM CHLORIDE 100 ml 100 ML 404 MG IVPB (10:43)
[2023-08-14] MEDS: FOSAPREPITANT 150 MG inj 150 MG in 0.9 % SODIUM CHLORIDE 250 ml 250 ML 510 MG IVPB (11:12)
[2023-08-14] MEDS: HEPARIN 500 UNIT/5 ML SYRINGE IVF (13:59)
[2023-08-14] MEDS: 0.9 % SODIUM CHLORIDE 250 ml IV (14:00)
[2023-09-04 07:52] VITALS: BP 129/80; PULSE 96; RESP 16; TEMP 36.7; O2SAT 98
[2023-09-04 08:01] LABS: Basophils Percent Auto 0.8 % (0.0-3.0); Hematocrit 36.1 % (33.0-51.0); Hemoglobin* 12.2 gm/dL (12.0-16.0); Immature Granulocytes Pct Auto 0.8 %; Lymphocytes Percent Auto 32.2 % (20-44); Mean Corpuscular HGB Conc 34 gm/dL (32-36); Mean Corpuscular Hemoglobin 32 pg (26-34); Mean Corpuscular Volume 94 fL (80-100); Monocytes Percent Auto 15.5 % (0.0-11.0); Neutrophils Percent Auto 49.7 % (42.0-72.0); Platelet Count* 167 K/uL (140-440); RDW Coefficient of Variation % 14.3 % (11.5-15.5); Red Blood Count 3.84 m/uL (4.00-5.20); White Blood Count* 3.88 K/uL (4.50-11.00)
[2023-09-04 08:03] LABS: Slide Review Reflex No
[2023-09-04 08:16] LABS: Chloride* 104 mmol/L (96-114); Potassium* 4.3 mmol/L (3.6-5.1); Sodium* 139 mmol/L (135-149)
[2023-09-04 08:18] LABS: Anion Gap 7 mEq/L (7-15); Aspartate Amino Transferase* 57 U/L (12-35); Bilirubin Total* 0.4 mg/dL (0.1-1.5); Carbon Dioxide* 28 mmol/L (20-32); Creatinine* 0.9 mg/dL (0.5-1.5); Est. Creatinine Clearance* 48.25; Estimated Glomerular Filt Rate 72 ml/min; Total Protein* 6.9 g/dL (6.0-8.3)
[2023-09-04 08:19] LABS: Alanine Aminotransferase* 52 U/L (4-35); Alkaline Phosphatase* 91 U/L (40-150); Blood Urea Nitrogen* 13 mg/dL (7-30); Calcium* 8.7 mg/dL (8.4-10.6); Glucose* 139 mg/dL (60-115)
[2023-09-04] MEDS: 0.9 % SODIUM CHLORIDE 250 ml IV (09:30)
[2023-09-04] MEDS: SODIUM CHLORIDE 0.9 % (FLUSH) 10 ML SYRINGE IVF ×2 (09:32→14:06)
[2023-09-04] MEDS: PERTUZUMAB 420 MG, TUBING SECONDARY 1 EACH in 0.9 % SODIUM CHLORIDE 250 ml 250 ML 528 MG IV (10:15)
[2023-09-04] MEDS: dexAMETHasone 10 MG in 0.9 % SODIUM CHLORIDE 100 ml 100 ML 420 MG IVPB (11:34)
[2023-09-04] MEDS: PALONOSETRON 0.25 MG/5 ML inj IV (11:34)
[2023-09-04] MEDS: FOSAPREPITANT 150 MG inj 150 MG in 0.9 % SODIUM CHLORIDE 250 ml 250 ML 780 MG IVPB (11:51)
[2023-09-04] MEDS: HEPARIN 500 UNIT/5 ML SYRINGE IVF (14:05)
[2023-09-24 08:29] LABS: Basophils Percent Auto 1.3 % (0.0-3.0); Hematocrit 34.6 % (33.0-51.0); Hemoglobin* 11.5 gm/dL (12.0-16.0); Immature Granulocytes Pct Auto 0.8 %; Lymphocytes Percent Auto 33.5 % (20-44); Mean Corpuscular HGB Conc 33 gm/dL (32-36); Mean Corpuscular Hemoglobin 32 pg (26-34); Mean Corpuscular Volume 96 fL (80-100); Monocytes Percent Auto 17.3 % (0.0-11.0); Neutrophils Percent Auto 47.1 % (42.0-72.0); Platelet Count* 120 K/uL (140-440); RDW Coefficient of Variation % 15.7 % (11.5-15.5); White Blood Count* 3.88 K/uL (4.50-11.00)
[2023-09-24 08:38] LABS: Slide Review Reflex No
[2023-09-24 08:42] LABS: Albumin* 3.9 g/dL (3.3-5.0); Chloride* 102 mmol/L (96-114); Potassium* 4.4 mmol/L (3.6-5.1); Sodium* 134 mmol/L (135-149)
[2023-09-24 08:44] LABS: Creatinine* 0.9 mg/dL (0.5-1.5); Est. Creatinine Clearance* 48.25; Estimated Glomerular Filt Rate 72 ml/min
[2023-09-24 08:45] LABS: Alanine Aminotransferase* 40 U/L (4-35); Alkaline Phosphatase* 78 U/L (40-150); Anion Gap 7 mEq/L (7-15); Aspartate Amino Transferase* 44 U/L (12-35); Bilirubin Total* 0.5 mg/dL (0.1-1.5); Blood Urea Nitrogen* 19 mg/dL (7-30); Carbon Dioxide* 25 mmol/L (20-32); Glucose* 157 mg/dL (60-115); Total Protein* 6.7 g/dL (6.0-8.3)
[2023-09-24 08:46] LABS: Calcium* 8.8 mg/dL (8.4-10.6)
[2023-09-24] MEDS: PERTUZUMAB 420 MG, TUBING SECONDARY 1 EACH in 0.9 % SODIUM CHLORIDE 250 ml 250 ML 528 MG IV (09:47)
[2023-09-24] MEDS: PALONOSETRON 0.25 MG/5 ML inj IV (11:05)
[2023-09-24] MEDS: dexAMETHasone 10 MG in 0.9 % SODIUM CHLORIDE 100 ml 100 ML 404 MG IVPB (11:05)
[2023-09-24] MEDS: FOSAPREPITANT 150 MG inj 150 MG in 0.9 % SODIUM CHLORIDE 250 ml 250 ML 510 MG IVPB (11:26)
[2023-09-24] MEDS: SODIUM CHLORIDE 0.9 % (FLUSH) 10 ML SYRINGE IVF (13:45)
[2023-09-24] MEDS: HEPARIN 500 UNIT/5 ML SYRINGE IVF (13:45)
[2023-10-17 08:17] LABS: Eosinophils Percent Auto 0.7 % (0.0-7.0); Hematocrit 32.4 % (33.0-51.0); Hemoglobin* 10.6 gm/dL (12.0-16.0); Immature Granulocytes Pct Auto 0.3 %; Lymphocytes Percent Auto 38.3 % (20-44); Mean Corpuscular HGB Conc 33 gm/dL (32-36); Mean Corpuscular Hemoglobin 33 pg (26-34); Mean Corpuscular Volume 101 fL (80-100); Monocytes Percent Auto 16.5 % (0.0-11.0); Neutrophils Percent Auto 43.2 % (42.0-72.0); Platelet Count* 154 K/uL (140-440); RDW Coefficient of Variation % 17.2 % (11.5-15.5); Red Blood Count 3.21 m/uL (4.00-5.20); White Blood Count* 3.03 K/uL (4.50-11.00)
[2023-10-17 08:24] LABS: Slide Review Reflex No
[2023-10-17 08:30] LABS: Albumin* 3.8 g/dL (3.3-5.0); Chloride* 106 mmol/L (96-114)
[2023-10-17 08:31] LABS: Potassium* 4.3 mmol/L (3.6-5.1); Sodium* 137 mmol/L (135-149)
[2023-10-17 08:33] LABS: Alkaline Phosphatase* 70 U/L (40-150); Anion Gap 5 mEq/L (7-15); Aspartate Amino Transferase* 37 U/L (12-35); Bilirubin Total* 0.6 mg/dL (0.1-1.5); Blood Urea Nitrogen* 18 mg/dL (7-30); Carbon Dioxide* 26 mmol/L (20-32); Creatinine* 0.9 mg/dL (0.5-1.5); Est. Creatinine Clearance* 48.25; Estimated Glomerular Filt Rate 72 ml/min; Total Protein* 6.7 g/dL (6.0-8.3)
[2023-10-17 08:34] LABS: Alanine Aminotransferase* 33 U/L (4-35); Calcium* 8.8 mg/dL (8.4-10.6); Glucose* 158 mg/dL (60-115)
[2023-10-17] MEDS: HEPARIN 500 UNIT/5 ML SYRINGE IVF (09:12)
[2023-10-17] MEDS: SODIUM CHLORIDE 0.9 % (FLUSH) 10 ML SYRINGE IVF (09:12)
--- NOTE | 2023-10-21 15:03 | ONC.NURNOTE ---
EKG needed for treatment of breast cancer r/t being on cardiotoxic drugs.
--- NOTE | 2023-10-21 15:12 | ONC.NURNOTE ---
EKG ordered due to pt having a syncopal episode. See note from Nneka Martíenz PA-C.
[2023-10-24 08:12] VITALS: BP 145/62; PULSE 93; RESP 17; TEMP 36.6; O2SAT 97
[2023-10-24 08:34] LABS: Basophils Percent Auto 0.6 % (0.0-3.0); Eosinophils Percent Auto 2.5 % (0.0-7.0); Immature Granulocytes Pct Auto 0.3 %; Lymphocytes Percent Auto 30.4 % (20-44); Mean Corpuscular HGB Conc 32 gm/dL (32-36); Mean Corpuscular Hemoglobin 33 pg (26-34); Mean Corpuscular Volume 102 fL (80-100); Neutrophils Percent Auto 51.2 % (42.0-72.0); Platelet Count* 182 K/uL (140-440); RDW Coefficient of Variation % 16.8 % (11.5-15.5); Red Blood Count 3.33 m/uL (4.00-5.20); White Blood Count* 3.26 K/uL (4.50-11.00)
[2023-10-24 08:38] LABS: Slide Review Reflex No
[2023-10-24 08:44] LABS: Albumin* 3.9 g/dL (3.3-5.0)
[2023-10-24 08:45] LABS: Chloride* 104 mmol/L (96-114); Potassium* 4.9 mmol/L (3.6-5.1); Sodium* 136 mmol/L (135-149)
[2023-10-24 08:47] LABS: Anion Gap 5 mEq/L (7-15); Bilirubin Total* 0.7 mg/dL (0.1-1.5); Carbon Dioxide* 27 mmol/L (20-32); Creatinine* 0.9 mg/dL (0.5-1.5); Est. Creatinine Clearance* 48.25; Estimated Glomerular Filt Rate 72 ml/min; Total Protein* 6.9 g/dL (6.0-8.3)
[2023-10-24 08:48] LABS: Alanine Aminotransferase* 32 U/L (4-35); Alkaline Phosphatase* 72 U/L (40-150); Aspartate Amino Transferase* 35 U/L (12-35); Blood Urea Nitrogen* 21 mg/dL (7-30); Calcium* 8.8 mg/dL (8.4-10.6); Glucose* 174 mg/dL (60-115)
[2023-10-24] MEDS: PERTUZUMAB 420 MG, TUBING SECONDARY 1 EACH in 0.9 % SODIUM CHLORIDE 250 ml 250 ML 528 MG IV (09:27)
[2023-10-24] MEDS: dexAMETHasone 10 MG in 0.9 % SODIUM CHLORIDE 100 ml 100 ML 404 MG IVPB (10:55)
[2023-10-24] MEDS: PALONOSETRON 0.25 MG/5 ML inj IV (10:55)
[2023-10-24] MEDS: FOSAPREPITANT 150 MG inj 150 MG in 0.9 % SODIUM CHLORIDE 250 ml 250 ML 510 MG IVPB (11:18)
[2023-10-24] MEDS: SODIUM CHLORIDE 0.9 % (FLUSH) 10 ML SYRINGE IVF (13:38)
[2023-10-24] MEDS: HEPARIN 500 UNIT/5 ML SYRINGE IVF (13:39)
--- NOTE | 2023-10-25 12:52 | P.EN_ITS ---
Chart Event Note Date Seen: 10/22/23 Chart Event Note: EKG Interpretation. Date of tracing 10/21/23. Interpretation by Dr. Reji Knutson, Emergency Medicine I was asked to review an EKG from 10/21/2023. Indication was syncope. EKG shows normal sinus rhythm, no acute ST wave changes are notable. There is some Q-wa ves inferiorly in leads 2 3 and AVF. QT and QTC appear normal. Ventricular rate is 79 In comparison from EKGs from 06/13/2023. No appreciable change noted.
--- NOTE | 2023-10-28 08:26 | ONC.NURNOTE ---
Annual PCP wellness visit with Dr. Henley Received office note and lab results from [facility] annual wellness visit with Dr. Henley, PCP, on 10/22/2023. Notes and lab results scanned into [employer].
--- NOTE | 2023-11-11 09:48 | ONC.NURNOTE ---
Back Pain Pt called reporting she is having significant back pain. She was see by PCP 11/07 for a cough and began Doxycycline that evening. She reports she had mild lower back pain then. Over the weekend her cough improved but her back pain increased to mid back/right mid back, increasing severity. She reports taking a shower Saturday and having to stop d/t back pain, and had to lay down on the bed to get dressed. She notes that laying on a heating pad helps. Her back pain is uncomfortable with taking a deep breath but does not change in quality. She also notes her back pain is improved if she sits leaning forward. Recommended pt be seen by provider today to work up significant new back pain. She is agreeable to this plan.
[2023-11-13 08:08] LABS: Basophils Absolute Auto 0.04 K/uL (0.00-0.30); Basophils Percent Auto 0.9 % (0.0-3.0); Eosinophils Absolute Auto 0.01 K/uL (0.00-0.50); Eosinophils Percent Auto 0.2 % (0.0-7.0); Hemoglobin* 10.4 gm/dL (12.0-16.0); Immature Granulocytes Abs Auto 0.04 K/uL (0.00-0.30); Immature Granulocytes Pct Auto 0.9 %; Lymphocytes Percent Auto 26.5 % (20-44); Mean Corpuscular HGB Conc 33 gm/dL (32-36); Mean Corpuscular Hemoglobin 34 pg (26-34); Mean Corpuscular Volume 106 fL (80-100); Monocytes Percent Auto 15.5 % (0.0-11.0); Neutrophils Absolute Auto 2.53 K/uL (1.7-7.0); Platelet Count* 173 K/uL (140-440); RDW Coefficient of Variation % 14.3 % (11.5-15.5); Red Blood Count 3.02 m/uL (4.00-5.20); White Blood Count* 4.52 K/uL (4.50-11.00)
[2023-11-13 08:10] LABS: Slide Review Reflex No
[2023-11-13 08:19] LABS: Chloride* 103 mmol/L (96-114)
[2023-11-13 08:20] LABS: Potassium* 4.6 mmol/L (3.6-5.1); Sodium* 135 mmol/L (135-149)
[2023-11-13 08:22] LABS: Alanine Aminotransferase* 22 U/L (4-35); Alkaline Phosphatase* 93 U/L (40-150); Anion Gap 7 mEq/L (7-15); Aspartate Amino Transferase* 31 U/L (12-35); Bilirubin Total* 0.7 mg/dL (0.1-1.5); Blood Urea Nitrogen* 20 mg/dL (7-30); Carbon Dioxide* 25 mmol/L (20-32); Creatinine* 0.9 mg/dL (0.5-1.5); Est. Creatinine Clearance* 48.25; Estimated Glomerular Filt Rate 72 ml/min; Glucose* 214 mg/dL (60-115); Total Protein* 7.1 g/dL (6.0-8.3)
[2023-11-13 08:23] LABS: Calcium* 9.3 mg/dL (8.4-10.6)
[2023-11-13] MEDS: PERTUZUMAB 420 MG, TUBING SECONDARY 1 EACH in 0.9 % SODIUM CHLORIDE 250 ml 250 ML 528 MG IV (09:16)
--- NOTE | 2023-11-13 10:15 | ONC.NURNOTE ---
Radiation Oncology referral and office note faxed to [facility]. They will call patient to schedule consultation.
[2023-11-13] MEDS: dexAMETHasone 10 MG in 0.9 % SODIUM CHLORIDE 100 ml 100 ML 404 MG IVPB (10:42)
[2023-11-13] MEDS: PALONOSETRON 0.25 MG/5 ML inj IV (10:42)
[2023-11-13] MEDS: FOSAPREPITANT 150 MG inj 150 MG in 0.9 % SODIUM CHLORIDE 250 ml 250 ML 510 MG IVPB (11:03)
[2023-11-13] MEDS: HEPARIN 500 UNIT/5 ML SYRINGE IVF (13:15)
[2023-11-13] MEDS: SODIUM CHLORIDE 0.9 % (FLUSH) 10 ML SYRINGE IVF (13:15)
[2023-12-05 08:25] LABS: Basophils Percent Auto 1.5 % (0.0-3.0); Eosinophils Percent Auto 0.4 % (0.0-7.0); Hematocrit 30.8 % (33.0-51.0); Hemoglobin* 10.1 gm/dL (12.0-16.0); Immature Granulocytes Pct Auto 0.7 %; Lymphocytes Percent Auto 36.9 % (20-44); Mean Corpuscular HGB Conc 33 gm/dL (32-36); Mean Corpuscular Hemoglobin 35 pg (26-34); Mean Corpuscular Volume 107 fL (80-100); Monocytes Percent Auto 15.7 % (0.0-11.0); Neutrophils Percent Auto 44.8 % (42.0-72.0); Platelet Count* 112 K/uL (140-440); Red Blood Count 2.88 m/uL (4.00-5.20); White Blood Count* 2.68 K/uL (4.50-11.00)
[2023-12-05 08:30] LABS: Slide Review Reflex No
[2023-12-05 08:36] LABS: Albumin* 3.8 g/dL (3.3-5.0); Chloride* 104 mmol/L (96-114); Sodium* 136 mmol/L (135-149)
[2023-12-05 08:39] LABS: Alanine Aminotransferase* 20 U/L (4-35); Alkaline Phosphatase* 113 U/L (40-150); Anion Gap 6 mEq/L (7-15); Aspartate Amino Transferase* 31 U/L (12-35); Bilirubin Total* 0.5 mg/dL (0.1-1.5); Blood Urea Nitrogen* 16 mg/dL (7-30); Carbon Dioxide* 26 mmol/L (20-32); Creatinine* 0.8 mg/dL (0.5-1.5); Est. Creatinine Clearance* 48.25; Estimated Glomerular Filt Rate 83 ml/min; Glucose* 120 mg/dL (60-115); Total Protein* 7.1 g/dL (6.0-8.3)
[2023-12-05] MEDS: PERTUZUMAB 420 MG, TUBING SECONDARY 1 EACH in 0.9 % SODIUM CHLORIDE 250 ml 250 ML 528 MG IV (10:23)
[2023-12-05] MEDS: 0.9 % SODIUM CHLORIDE 250 ml IV (10:26)
[2023-12-05] MEDS: SODIUM CHLORIDE 0.9 % (FLUSH) 10 ML SYRINGE IVF ×2 (10:26→11:44)
[2023-12-05] MEDS: HEPARIN 500 UNIT/5 ML SYRINGE IVF (11:44)
== END 2023-12-08 23:59 | disposition home or self-care (01) ==
LOC: CCIC 08:15
PROVIDERS: Clinical Nurse Specialist; Internal Medicine Hematology & Oncology; PCP Emergency Medicine; Referring Provider Emergency Medicine; Visit Provider Physician Assistant
DX: C50.912 Malignant neoplasm of unspecified site of left female breast (principal); Z51.12 Encounter for antineoplastic immunotherapy; Z17.1 Estrogen receptor negative status [ER-]; E10.9 Type 1 diabetes mellitus without complications; E03.9 Hypothyroidism, unspecified
CPT/HCPCS: 36415; 36591; 80053; 84443; 85025; 93005; 96376; 96377; 96411; 96413; 96415; 96417; 99202; 99205; 99211; 99212; 99214; 99215; G0463; J2506; J1100; J1453; J1642; J2469; J7050; J9045; J9171; J9306; J9355

== ENCOUNTER 2024-02-17 13:40 | Outpatient (CLI) | payer BC, SELFPAY ==
--- OUTSIDE RECORDS SUMMARY | 2024-02-17 13:42 | XMS_ITS ---
Author Name Unknown Organization [facility] Address [address] [place] [address] Care Team Providers Care Configuration Management Analyst Name Role Phone Unavailable Primary Care Provider Unavailabl e Active Problems Problem Noted Date Diagnosed Date Malignant Neoplasm Of Breast Female Left 024 Cancer Staging:Pathologic stage from 06/18/2023:Stage IIA(pT2, pN0, cM0, G3, ER-, NM-, HER2+) - Unsigned Current Oncology Plans No current plan information found. Past Plans No past plan information found. Radiation Treatments * Plan Last Treated On Elapsed Days Fractions Treated Prescribed Fraction Dose Prescribed Total Dose [id number] 12/19/2023 10 4 of 4 250 cGy 1,000 cGy [id number] 12/13/2023 4 5 of 5 520 cGy 2,600 cGy Reference Point Last Treated On Elapsed Days Session Dose Total Dose [id number] 12/19/2023 10 250 cGy 3,600 cGy
--- OUTSIDE RECORDS SUMMARY | 2024-02-17 13:42 | XMS_ITS | Encounter Summary ---
Author Name Unknown Organization [facility] Address [address] [place] [address] Care Team Providers Care Owner/Photographer Name Role Phone Unavailable Primary Care Provider Unavailabl e Reason for Visit * Radiation Therapy (Routine) - Authorized Specialty Diagnoses / Procedures Referred By Contalanna t Referred To Contact Diagnoses Malignant Neoplasm Of Breast Female Left (HCC) Procedures Prior Auth Rad Tx [place] RADTN [place] DEL >=1 MEV COMPLEX 3D Stephanie Arzola M.D. [address] [place] [phone] [facility] Referral ID Status Reason Start Date Expiration Date V isits Requested Visits Authorized [id number] Authorized 12/09/2023 11/26/2024 19 19 Encounter Details Date Type Department Care Team (Latest Contact Info) Description 12/11/2023 3:41 PM POOL LIFEGUARD - 12/11/2023 11:59 PM [facility] Hospital Encounter Department of Radiation Oncology in [place], [place] [address] [place] [address] Stephanie Arzola M.D. [address] [place] [phone] Discharge Disposition: Home or Self Care Social History Tobacco Use Types Packs/Day Years Used Date Smoking Tobacco: Never Smokeless Tobacco: Never Alcohol Use Standard Drinks/Week Comments Yes 0 (1 standard drink = 0.6 oz pur e alcohol) Occasional Nutrition Answer Date Recorded Nutrition: EVOO Fat Source Unknown 06/11 Nutrition: Servings of Fruits/Vegetables per Day Not on file 06/11/2023 Dental Answer Date Recorded Dental: Regular Dentist Unknown 06/11/20 23 Sex and Gender Information Value Date Recorded Sex Assigned at Not on file Gender Identity Not on file Sexual Orientation Not on file documented as of this encounter Medications at Time of Discharge Medication Sig Dispensed Refills Start Date End Date Dexcom G6 Sensor device APPLY SENSOR TO DRY SKIN AND CHANGE EVERY 10 DAYS 11/07/2023 Dexcom G6 Transmitter device See Admin Instructions. 10/09/2023 doxycycline hyclate (VIBRAMYCIN) 100 mg capsule Take 1 capsule by mouth 2 (two) times a day. 11/07/2023 insulin regular (NovoLIN R Regular U100 Insulin) 100 unit/mL injection Inject 7 Units under the skin. levothyroxine (SYNTHROID, LEVOTHROID) 100 mcg tablet TAKE 1 TABLET BY MOUTH 30 TO 60 MINUTES BEFORE FIRST MEAL lisinopriL (PRINIVIL,ZESTRIL) 20 mg tablet Take 20 mg by mouth daily. for high blood pressure 09/01/2023 LORazepam (ATIVAN) 0.5 mg tablet See Admin Instructions. See attached for detailed directions. 11/22/2023 mometasone (ELOCON) 0.1 % cream Apply 1 Application topically daily. Apply to the radiation treatment area. 45 g 11/28/2023 NovoLIN N NPH U-100 Insulin 100 unit/mL injection Inject under the skin. ondansetron (ZOFRAN) 4 mg tablet START 24 HRS AFTER CHEMO TAKE 1 TABLET BY MOUTH EVERY 6 HOURS NEEDED FOR NAUSEA/VOMITING 11/20/2023 prochlorperazine (COMPAZINE) 10 mg tablet TAKE 1 TABLET BY MOUTH 3 TIMES A DAY NEEDED FOR CHEMO RELATED NAUSEA/VOMITING 11/20/2023 documented as of this encounter Plan of Treatment Not on file documented as of this encounter Visit Diagnoses Not on filedocumented in this encounter
--- OUTSIDE RECORDS SUMMARY | 2024-02-17 13:42 | XMS_ITS | Encounter Summary ---
Author Name Unknown Organization [facility] Address [address] [place] [address] Care Team Providers Care Floor Layer Name Role Phone Unavailable Primary Care Provider Unavailabl e Reason for Visit * Radiation Therapy (Routine) - Authorized Specialty Diagnoses / Procedures Referred By Contalanna t Referred To Contact Diagnoses Malignant Neoplasm Of Breast Female Left (HCC) Procedures Prior Auth Rad Tx [place] RADTN [place] DEL >=1 MEV COMPLEX 3D Stephanie Arzola M.D. [address] [place] [phone] [facility] Referral ID Status Reason Start Date Expiration Date V isits Requested Visits Authorized [id number] Authorized 12/09/2023 11/26/2024 19 19 Encounter Details Date Type Department Care Team (Latest Contact Info) Description 12/18/2023 3:42 PM CDT - 12/18/2023 11:59 PM CDT Hospital Encounter Department of Radiation Oncology in [place], [place] [address] [place] [address] Stephanie Arzola M.D. [address] [place] [phone] Discharge Disposition: Home or Self Care Social [...]
--- OUTSIDE RECORDS SUMMARY | 2024-02-17 13:42 | XMS_ITS | Encounter Summary ---
Author Name Unknown Organization [facility] Address [address] [place] [address] Care Team Providers Care Account Maintenance Representative Name Role Phone Unavailable Primary Care Provider Unavailabl e Reason for Visit * Radiation Therapy (Routine) - Authorized Specialty Diagnoses / Procedures Referred By Contalanna t Referred To Contact Diagnoses Malignant Neoplasm Of Breast Female Left (HCC) Procedures Prior Auth Rad Tx [place] RADTN [place] DEL >=1 MEV COMPLEX 3D Stephanie Arzola M.D. [address] [place] [phone] [facility] Referral ID Status Reason Start Date Expiration Date V isits Requested Visits Authorized [id number] Authorized 12/09/2023 11/26/2024 19 19 Encounter Details Date Type Department Care Team (Latest Contact Info) Description 12/09/2023 3:36 PM LAUNDRY ASSISTANT - 12/09/2023 11:59 PM [facility] Hospital Encounter Department of Radiation Oncology in [place], [place] [address] [place] [address] Stephanie Arzola M.D. [address] [place] [phone] Discharge Disposition: Home or Self Care Social [...]
--- OUTSIDE RECORDS SUMMARY | 2024-02-17 13:42 | XMS_ITS | Encounter Summary ---
Author Name Unknown Organization [facility] Address [address] [place] [address] Care Team Providers Care Surgical Assistant Name Role Phone Unavailable Primary Care Provider Unavailabl e Reason for Visit * Radiation Therapy (Routine) - Authorized Specialty Diagnoses / Procedures Referred By Contalanna t Referred To Contact Diagnoses Malignant Neoplasm Of Breast Female Left (HCC) Procedures Prior Auth Rad Tx [place] RADTN [place] DEL >=1 MEV COMPLEX 3D Stephanie Arzola M.D. [address] [place] [phone] [facility] Referral ID Status Reason Start Date Expiration Date V isits Requested Visits Authorized [id number] Authorized 12/09/2023 11/26/2024 19 19 Encounter Details Date Type Department Care Team (Latest Contact Info) Description 12/17/2023 3:43 PM CDT - 12/17/2023 11:59 PM CDT Hospital Encounter Department of Radiation Oncology in [place], [place] [address] [place] [address] Stephanie Arzola M.D. [address] [place] [phone] Discharge Disposition: Home or Self Care Social [...]
--- OUTSIDE RECORDS SUMMARY | 2024-02-17 13:42 | XMS_ITS | Referral Summary ---
Author Name Unknown Organization [facility] Address [address] [place] [address] Care Team Providers Care Health Data Analyst Name Role Phone Unavailable Primary Care Provider Unavailabl e Source Comments Patient records contain information from all sites at [facility]. For routine questions regarding patient records, call [phone] during business hours, M-F 8:00 AM - 5:00 PM Central Time. Record requests for emergency care only can be directed to [phone] at any time.[facility] Encounters Date Type Department Care Team Description 12/19/2023 Documentation Department of Radiation Oncology in [address] [address] Stephanei Arzola M.D. 12/19/2023 3:41 PM CDT - 12/19/2023 11:59 PM CDT Hospital Encounter Department of Radiation Oncology in [address] [address] Stephanie Arzola M.D. Discharge Disposition: Home or Self Care 12/18/2023 3:42 PM CDT - 12/18/2023 11:59 PM CDT Hospital Encounter Department of Radiation Oncology in [address] [address] Stephanie Arzola M.D. Discharge Disposition: Home or Self Care 12/17/2023 3:43 PM CDT - 12/17/2023 5:09 PM CDT Hospital Encounter Department of Radiation Oncology in [address] [address] Stephanie Arzola M.D. Malignant Neoplasm Of Breast Female Left (HCC) 12/17/2023 3:43 PM CDT - 12/17/2023 11:59 PM CDT Hospital Encounter Department of Radiation Oncology in [address] [address] Stephanie Arzola M.D. Discharge Disposition: Home or Self Care 12/16/2023 3:41 PM CDT - 12/16/2023 11:59 PM CDT Hospital Encounter Department of Radiation Oncology in [address] [address] Stephanie Arzola M.D. Discharge Disposition: Home or Self Care 12/13/2023 3:40 PM LEAD SYSTEMS ANALYST - 12/13/2023 11:59 PM LEAD SYSTEMS ANALYST Hospital Encounter Department of Radiation Oncology in [address] [address] Stephanie Arzola M.D. Discharge Disposition: Home or Self Care 12/12/2023 3:43 PM LEAD SYSTEMS ANALYST - 12/12/2023 11:59 PM LEAD SYSTEMS ANALYST Hospital Encounter Department of Radiation Oncology in [address] [address] Stephanie Arzola M.D. Discharge Disposition: Home or Self Care 12/11/2023 3:41 PM LEAD SYSTEMS ANALYST - 12/11/2023 11:59 PM LEAD SYSTEMS ANALYST Hospital Encounter Department of Radiation Oncology in [address] [address] Stephanie Arzola M.D. Discharge Disposition: Home or Self Care 12/10/2023 3:24 PM LEAD SYSTEMS ANALYST - 12/10/2023 3:59 PM LEAD SYSTEMS ANALYST Hospital Encounter Department of Radiation Oncology in [address] [address] Stephanie Arzola M.D. Malignant Neoplasm Of Breast Female Left (HCC) 12/10/2023 4:00 PM LEAD SYSTEMS ANALYST - 12/10/2023 11:59 PM LEAD SYSTEMS ANALYST Hospital Encounter Department of Radiation Oncology in [address] [address] Stephanie Arzola M.D. Discharge Disposition: Home or Self Care 12/09/2023 3:36 PM LEAD SYSTEMS ANALYST - 12/09/2023 11:59 PM LEAD SYSTEMS ANALYST Hospital Encounter Department of Radiation Oncology in [address] [address] Stephanie Arzola M.D. Discharge Disposition: Home or Self Care 12/02/2023 Clinical Communication Department of Radiation Oncology in [address] [address] Stephanie Arzola M.D. 11/28/2023 2:45 PM LEAD SYSTEMS ANALYST - 11/28/2023 4:45 PM LEAD SYSTEMS ANALYST Hospital Encounter Department of Radiation Oncology in [address] [address] Stephanie Arzola M.D. Malignant Neoplasm Of Breast Female Left (HCC) 11/28/2023 1:13 PM LEAD SYSTEMS ANALYST - 11/28/2023 2:44 PM LEAD SYSTEMS ANALYST Hospital Encounter Department of Radiation Oncology in [address] [address] Stephanie Arzola M.D. Malignant Neoplasm Of Breast Female Left (HCC) (Primary Dx) 11/27/2023 Orders Only Department of Radiation Oncology in [address] [address] Kamila Montejo P.A.-C., M.S. Malignant Neoplasm Of Breast Female Left (HCC) (Primary Dx) from Last 3 Months Allergies Active Allergy Reactions Criticality Noted Date Comments Adhesive Rash 11/28/2023 Medications Medication Sig Dispensed Refills Start Date End Date Status NovoLIN N NPH U-100 Insulin 100 unit/mL injection Inject under the skin. Active insulin regular (NovoLIN R Regular U100 Insulin) 100 unit/mL injection Inject 7 Units under the skin. Active levothyroxine (SYNTHROID, LEVOTHROID) 100 mcg tablet TAKE 1 TABLET BY MOUTH 30 TO 60 MINUTES BEFORE FIRST MEAL Active lisinopriL (PRINIVIL,ZESTRIL) 20 mg tablet Take 20 mg by mouth daily. for high blood pressure 09/01/2023 Active LORazepam (ATIVAN) 0.5 mg tablet See Admin Instructions. See attached for detailed directions. 11/22/2023 Active ondansetron (ZOFRAN) 4 mg tablet START 24 HRS AFTER CHEMO TAKE 1 TABLET BY MOUTH EVERY 6 HOURS NEEDED FOR NAUSEA/VOMITING 11/20/2023 Active prochlorperazine (COMPAZINE) 10 mg tablet TAKE 1 TABLET BY MOUTH 3 TIMES A DAY NEEDED FOR CHEMO RELATED NAUSEA/VOMITING 11/20/2023 Active Dexcom G6 Sensor device APPLY SENSOR TO DRY SKIN AND CHANGE EVERY 10 DAYS 11/07/2023 Active Dexcom G6 Transmitter device See Admin Instructions. 10/09/2023 Active doxycycline hyclate (VIBRAMYCIN) 100 mg capsule Take 1 capsule by mouth 2 (two) times a day. 11/07/2023 Active mometasone (ELOCON) 0.1 % cream Apply 1 Application topically daily. Apply to the radiation treatment area. 45 g 11/28/2023 Active Active Problems Problem Noted Date Diagnosed Date Malignant Neoplasm Of Breast Female Left 024 Cancer Staging:Pathologic stage from 06/18/2023:Stage IIA(pT2, pN0, cM0, G3, ER-, RI-, HER2+) - Unsigned Social History Tobacco Use Types Packs/Day Years Used Date Smoking Tobacco: Never Smokeless Tobacco: Never Tobacco Cessation:Counseling Given: Not Answered Alcohol Use Standard Drinks/Week Comments Yes 0 (1 standard drink = 0.6 oz pur e alcohol) Occasional Nutrition Answer Date Recorded Nutrition: EVOO Fat Source Unknown 06/11 Nutrition: Servings of Fruits/Vegetables per Day Not on file 06/11/2023 Dental Answer Date Recorded Dental: Regular Dentist Unknown 06/11/20 Sex and Gender Information Value Date Recorded Sex Assigned at Not on file Gender Identity Not on file Sexual Orientation Not on file Last Filed Vital Signs Vital Sign Reading Time Taken Comments Blood Pressure 120/51 11/28/2023 1:18 PM LEAD SYSTEMS ANALYST Pulse 90 11/28/2023 1:18 PM LEAD SYSTEMS ANALYST Temperature 36.2 ??C (97.1 ??F) 12/17/2023 4:14 PM CD T Respiratory Rate - - Oxygen Saturation - - Inhaled Oxygen Concentration - - Weight 70 kg (154 lb 5.2 oz) 12/17/2023 4:14 PM CDT Height - - Body Mass Index - - Plan of Treatment Not on file Procedures Procedure Name Priority Date/Time Associated Diagnosis Comments ARIA COURSE COMPLETE TREATMENT INFORMATION Routine 12/19/2023 4:05 PM CDT ARIA DAILY TREATMENT INFORMATION Routine 12/19/2023 4:05 PM CDT ARIA DAILY TREATMENT INFORMATION Routine 12/18/2023 4:05 PM CDT ARIA DAILY TREATMENT INFORMATION Routine 12/17/2023 4:08 PM CDT ARIA DAILY TREATMENT INFORMATION Routine 12/16/2023 4:13 PM CDT ARIA DAILY TREATMENT INFORMATION Routine 12/13/2023 3:57 PM LEAD SYSTEMS ANALYST ARIA DAILY TREATMENT INFORMATION Routine 12/12/2023 4:21 PM LEAD SYSTEMS ANALYST ARIA DAILY TREATMENT INFORMATION Routine 12/11/2023 4:13 PM LEAD SYSTEMS ANALYST ARIA DAILY TREATMENT INFORMATION Routine 12/10/2023 4:13 PM LEAD SYSTEMS ANALYST ARIA DAILY TREATMENT INFORMATION Routine 12/09/2023 4:09 PM LEAD SYSTEMS ANALYST ARIA COURSE COMPLETE TREATMENT INFORMATION Routine 12/03/2023 10:46 AM LEAD SYSTEMS ANALYST INITIAL RAD ONC TREATMENT PLANNING CT SIMULATION Routine 11/28/2023 3:00 PM LEAD SYSTEMS ANALYST Malignant Neoplasm Of Breast Female Left (HCC) OUTSIDE MG MAMMOGRAM Routine 06/18/2023 9:45 AM CDT EXTI THYROID-STIMULATING HORMONE-SENSITIVE (S-TSH), S Routine 05/10/2022 9:15 AM CDT from Last 3 Months or Most Recently Relevant to Health Maintenance Results * Aria Course Complete Treatment Information (12/19/2023 4:05 PM CDT) Only the most recent of2 resultswithin the time period is included. Course ID [id number] ARRIAZA ARIA Course Start Date 4 09:50 CDT ARRIAZA ARIA Course End Date 4 15:53 CDT ARRIAZA ARIA First Treatment Date 4 16:06 CDT ARRIAZA ARIA Last Treatment Date 4 16:05 CDT ARRIAZA ARIA Treatment Elapsed Days 10 ARRIAZA ARIA Reference Point [id number] ARRIAZA ARIA Dosage Given to Date cGy 3600 ARRIAZA ARIA Plan ID [id number] ARRIAZA ARIA Fractions Treated to Date 4 ARRIAZA ARIA Planned Total Fractions 4 ARRIAZA ARIA Prescribed Dose Per Fraction 250 ARRIAZA ARIA Prescription Dose in cGy 1000 ARRIAZA ARIA Plan Primary Reference Point [id number] ARRIAZA ARIA Plan ID [id number] ARRIAZA ARIA Fractions Treated to Date 5 ARRIAZA ARIA Planned Total Fractions 5 ARRIAZA ARIA Prescribed Dose Per Fraction 520 ARRIAZA ARIA Prescription Dose in cGy 2600 ARRIAZA ARIA Plan Primary Reference Point [id number] ARRIAZA ARIA 12/19/2023 4:05 PM CDT Provider Not In System RADIATION ONCOLOG Y ORDERABLES ARRIAZA ARIA na * Aria Daily Treatment Information (12/19/2023 4:05 PM CDT) Only the most recent of9 resultswithin the time period is included. Course ID [id number] ARRIAZA ARIA Course Start Date 4 09:50 CDT ARRIAZA ARIA First Treatment Date 4 16:06 CDT ARRIAZA ARIA Last Treatment Date 4 16:05 CDT ARRIAZA ARIA Treatment Elapsed Days 10 ARRIAZA ARIA Reference Point [id number] ARRIAZA ARIA Dosage Given to Date cGy 3600 ARRIAZA ARIA Session Dosage Given 250 ARRIAZA ARIA Plan ID [id number] S ARRIAZA ARIA Fractions Treated to Date 4 ARRIAZA ARIA Planned Total Fractions 4 ARRIAZA ARIA Prescribed Dose Per Fraction 250 ARRIAZA ARIA Prescription Dose in cGy 1000 ARRIAZA ARIA Plan Primary Reference Point [id number] ARRIAZA ARIA 12/19/2023 4:05 PM CDT Provider Not In System RADIATION ONCOLOG Y ORDERABLES Performing Organization Address [facility] de Phone Number ARSALAN OVALLE na * Initial Rad Onc Treatment Planning CT Simulation (11/28/2023 3:00 PM LEAD SYSTEMS ANALYST) Narrative ARSALAN OVALLE - 11/28/2023 3:00 PM LEAD SYSTEMS ANALYST Kaylie Yuen, RTT ? 11/28/2023 ??3:04 PM Initial Rad Onc Treatment Planning CT Simulation Performed by: Stephanie Arzola M.D. Authorized by: Stephanie Arzola M.D. ?? Stephanie Arzola M.D. RADIATION ONCOLOG Y ORDERABLES Performing Organization Address [facility] de Phone Number ARSALAN OVALLE na * MM clip placement LT-Outside Mammogram (06/18/2023 9:45 AM CDT) Narrative [facility] - 11/25/2023 3:41 PM LEAD SYSTEMS ANALYST This order has been created and auto-finalized to support the import of outside images. If available, original interpretation can be found on the Media Tab in Chart Review, in Document Viewer, or as an image in QREADS. If a re-interpretation or overread is required please follow defined workflow. ?? Provider Not In System IMG BI PROCEDURES Performing Organization Address [facility] de Phone Number II NA from Last 3 Months or Most Recently Relevant to Health Maintenance
--- OUTSIDE RECORDS SUMMARY | 2024-02-17 13:42 | XMS_ITS | Encounter Summary ---
Author Name Unknown Organization [facility] Address [address] [place] [id number] Care Team Providers Care Benzol Still Operator Name Role Phone Unavailable Primary Care Provider Unavailabl e Reason for Visit * Radiation Therapy (Routine) - Authorized Specialty Diagnoses / Procedures Referred By Contalanna t Referred To Contact Diagnoses Malignant Neoplasm Of Breast Female Left (HCC) Procedures Prior Auth Rad Tx [place] RADTN TX DEL >=1 MEV COMPLEX 3D Stephanie Arzola M.D. [address] [place] [phone] [facility] Referral ID Status Reason Start Date Expiration Date V isits Requested Visits Authorized [id number] Authorized 12/09/2023 11/26/2024 19 19 Encounter Details Date Type Department Care Team (Latest Contact Info) Description 12/12/2023 3:43 PM DUST COL[employer]OR ORE CRUSHING - 12/12/2023 11:59 PM [facility] Hospital Encounter Department of Radiation Oncology in [place], [place] [address] [place] [address] Stephanie Arzola M.D. [address] [place] [phone] Discharge Disposition: Home or Self Care Social [...]
--- OUTSIDE RECORDS SUMMARY | 2024-02-17 13:42 | XMS_ITS | Encounter Summary ---
Author Name Unknown Organization [facility] Address [address] [place] [address] Care Team Providers Care Wedger Machine Name Role Phone Unavailable Primary Care Provider Unavailabl e Reason for Visit * Appointment Request (Routine) - Closed Specialty Diagnoses / Procedures Referred By Contalanna t Referred To Contact Radiation Oncology Diagnoses Malignant Neoplasm Of Breast Female Left (HCC) Tanya Quiroz M.D. [address] [place] [address] Referral ID Status Reason Start Date Expiration Date Visits Re quested Visits Authorized [id number] Closed 11/13/2023 11/12/2024 1 1 Encounter Details Date Type Department Care Team (Latest Contact Info) Description 11/28/2023 1:13 PM MANAGER REVIEW - 11/28/2023 2:44 PM [facility] Encounter Department of Radiation Oncology in [place], [place] [address] [place] [phone] Stephanie Arzola M.D. [address] [place] [address] Malignant Neoplasm Of Breast Female Left (HCC) (Primary Dx) Social History Tobacco Use Types Packs/Day Years [...] on file documented as of this encounter Last Filed Vital Signs Vital Sign Reading Time Taken Comments Blood Pressure 120/51 11/28/2023 1:18 PM MANAGER REVIEW Pulse 90 11/28/2023 1:18 PM MANAGER REVIEW Temperature 37.1 ??C (98.8 ??F) 11/28/2023 1:18 PM CS T Respiratory Rate - - Oxygen Saturation - - Inhaled Oxygen Concentration - - Weight 70.3 kg (154 lb 15.7 oz) 11/28/2023 1:18 PM MANAGER REVIEW Height - - Body Mass Index - - documented in this encounter Medications at Time of Discharge [...] Instructions. See attached for detailed directions. 11/22/2023 NovoLIN N NPH U-100 Insulin 100 unit/mL injection Inject under the skin. ondansetron (ZOFRAN) 4 mg tablet START 24 HRS AFTER CHEMO TAKE 1 TABLET BY MOUTH EVERY 6 HOURS NEEDED FOR NAUSEA/VOMITING 11/20/2023 prochlorperazine (COMPAZINE) 10 mg tablet TAKE 1 TABLET BY MOUTH 3 TIMES A DAY NEEDED FOR CHEMO RELATED NAUSEA/VOMITING 11/20/2023 documented as of this encounter Consult Notes * Kamila Montejo P.A.-C., M.S. - 11/28/2023 1:30 PM CST SUBJECTIVE REQUESTING PROVIDER Tanya Quiroz M.D. CHIEF COMPLAINT/REASON FOR CONSULT 1. Malignant Neoplasm Of Breast Female Left (HCC) SUPERVISED BY: Stephanie Arzola M.D. HISTORY OF PRESENT ILLNESS Mrs. Danelle Blackman is a 63-year-old female with stage IIA (pT2, pN0, cM0, G3, ER-, AZ-, HER2+) invasive ductal carcinoma of the left breast, who presents today for an opinion regarding the role ofradiation therapy in the management of the patient's disease. Her oncologic history is as follows: Oncology History Malignant Neoplasm Of Breast Female Left (HCC) 05/2023 Other The patient noticed a lump in her left breast after taking a shower. 05/24/2023 Critical Imaging Bilateral diagnostic mammogram and left breast ultrasound was performed. Mammogram demonstrated normal breast tissue in the right breast. There was a lobular mass within the left breast in the upper outer quadrant corresponding to the area of palpable concern. Targeted ultrasound left breast was performed at the 12 o'clock position, 9 cm from the nipple. There was a hypoechoic mass with distal shadowing measuring 1.5 x 2.0 x 1.6 cm. No suspicious lymph nodes in the left axilla. 05/30/2023 Biopsy/Pathology Ultrasound-guided biopsy of the left breast at the 12 o'clock position, 9 cm from the nipple was performed. Pathology demonstrated invasive ductal carcinoma, Trenton grade 3. Angiolymphatic invasion was suspicious. Associated DCIS was absent. Estrogen receptor negative. Progesterone receptor negative. HER2 by IHC positive (3+). 06/04/2023 Critical Imaging MRI bilateral breasts demonstrated no suspicious areas of enhancement in the right breast. In the left breast at the 12 o'clock position, middle depth, approximately 8 cm from the nipple, there was an irregular mass with irregular margins and heterogeneous internal enhancement measuring 1.4 x 2.3 x2.7 cm. Artifact from a biopsy marker clip was seen within the mass. This was consistent with the biopsy-proven malignancy. No adenopathy. 06/18/2023 Surgery and Procedures Left breast lumpectomy, left axillary sentinel lymph node biopsy, and re- excision of the anterior, medial, and superior margin was performed by Dr. Lo. Pathology demonstrated invasive ductal carcinoma, Trenton grade 3, measuring 22 mm. There was ductal carcinoma in-situ, nuclear grade 3, solid type. Lymphovascular invasion was present. Final margins were negative for invasive carcinoma, greater than 10 mm. Final margins were negative for DCIS, greater than 15 mm. Two left axillary sentinel lymph nodes were negative for tumor (0/2). Estrogen receptor negative. Progesterone receptor negative. HER2 by IHC positive (3+). pT2 pN0 07/23/2023 - 11/13/2023 Chemotherapy Adjuvant TCHP (taxotere/carboplatin/herceptin/perjeta) x 6 cycles under the care of Dr. Quiroz. Plan to continue Herceptin and Perjeta to complete one full year of anti-HER2 treatment. 12/11/2023 - Radiation Therapy Radiation Therapy Treatment Details (Noted on 11/27/2023) Site: Left Breast Technique: No technique specified Goal: Curative Planned Treatment Start Date: 12/11/2023 INTERVAL HISTORY: The patient was seen and examined today with Dr. Arzola. The patient reports doing well overall. She reports fatigue rated 8/10 in severity. She reports increased fatigue for 5-6 days following chemotherapy and then she notices some improvement. She also reports side effects of her eye twitching with chemotherapy as well as a cough that she has had for ap proximately one month. She denies shortness of breath, fever, or chest pain/tightness. She denies any surgical incision healing concerns, breast swelling, or breast pain. She reports mid to low back pain, rated 2/10 in severity, for the past month that is now improving. She has been going to a chiropractor with benefit. The patient denies a history of prior radiation therapy, connective tissue disorders, or inflammatory bowel disease. Her ECOG performance status is 0. REVIEW OF SYSTEMS Review of systems was negative except as documented above. PATIENT REPORTED SYMPTOM SCREEN: FATIGUE (Scale: 0 = no fatigue; 10 = worst fatigue you can imagine): 8 PAIN (Scale: 0 = no pain; 10 = worst pain you can imagine): 2 OVERALL QUALITY OF LIFE (Scale: 0 = as bad as can be; 10 = as good as can be): 9 MEDICAL HISTORY Past Medical History: Diagnosis Date Diabetes Mellitus Type 1 (HCC) Hypertension Essential Primary Hyperthyroidism Treated with radioactive iodine. Hypothyroidism Secondary Malignant Neoplasm Of Breast Female Left (HCC) SURGICAL HISTORY Past Surgical History: Procedure Laterality Date LUMPECTOMY BREAST WITH SENTINEL NODE BIOPSY Left FAMILY HISTORY No family history on file. SOCIAL HISTORY Social History Socioeconomic History Marital status: Spouse name: Neri Number of children: 3 Tobacco Use Smoking status: Never Smokeless tobacco: Never Substance and Sexual Activity Alcohol use: Yes Comment: Occasional OBJECTIVE BP (!) 120/51 (BP Location: Right arm, Patient Position: Sitting, Cuff Size: Large) Pulse 90 Temp 37.1 ??C (Temporal) Wt 70.3 kg PHYSICAL EXAMINATION General: Alert and oriented, in no apparent distress. The patient is here today with her , Neri. Heart: Regular rate and rhythm. Lungs: Clear to auscultation bilaterally. ASSESSMENT / PLAN #1 Stage IIA (pT2, pN0, cM0, G3, ER-, AZ-, HER2+) invasive ductal carcinoma of the left breast s/p left breast lumpectomy, left axillary sentinel lymph node biopsy, and re-excision of margins on June 18, 2023 #2 Adjuvant TCHP (taxotere/carboplatin/herceptin/perjeta) x 6 cycles completed on November 13, 2023,plan to continue Herceptin and Perjeta to complete one year I had a discussion with the patient and her regarding her breast cancer diagnosis includinginformation regarding her staging, grade, and hormone receptors. We reviewed her oncologic history as detailed above. We also had a detailed discussion regarding the risks, benefits, and alternativesof radiotherapy in this setting. Dr. Arzola offered radiation therapy to the whole left breast in 5or 15 fractions followed by a boost to the lumpectomy cavity in 4 fractions for a total of 9 or 19 fractions. We also discussed the possibility of a simultaneous integrated boost. I discussed the logistics as well as the acute and chronic side effects of radiotherapy. The acute side effects are common and include, but are not limited to, fatigue, radiation dermatitis, breast swelling and discomfort. Long-term side effects include, but are not limited to, skin changes and texture changes of the breast, possible breast asymmetry, pulmonary scarring, radiation pneumonitis, increased risk of rib fracture with significant trauma, lymphedema, small increased risk of coronary artery disease, and a very small risk of secondary malignancy. The use of mometasone cream and a moisturizing lotion applied to the skin within the treatment field during treatment was discussed. A prescription for mometasone cream will be sent to her preferred pharmacy. We also discussed the possibility of utilizing a breath-hold technique. The patient was provided with a written summary of recommendations. Her questions were answered to her verbalized satisfaction. The patient did have specific scheduling requests for radiation treatments and this information wasshared with our radiation therapists who manage the treatment scheduling. Dr. Arzola also met with the patient today, please see her attestation for details. The patient is scheduled for CT simulation today. The patient was provided with our contact information. She will contact us with questions or concerns. She verbally expressed her understanding of the plan. EDUCATION: Ready to learn, no apparent learning barriers were identified; learning preferences include listening. Explained diagnosis and treatment plan; patient expressed understanding of the content. PRIMARY PROVIDER Dunia Lewis M.D. I personally spent 70 minutes in care of the patient today. Time includes both non face to face andface to face patient care. Signed by: Kamila Montejo P.A.-C., MRichSRich 11/28/2023 2:47 PM MANAGER REVIEW [facility] [address] [place] [address] GER REVIEW Associated attestation - Stephanie Arzola M.D. - 11/28/2023 4:51 PM MANAGER REVIEW RADIATION ONCOLOGY CONSULT I saw and evaluated the patient and participated in the cortes portions of the service. I reviewed thedocumentation of Ms. Kamila Montejo PA-C, and agree with the findings and plan. Please see Ms. Montejo's detailed note for the patient's initial presentation and work-up. Briefly, Mrs. Blackman is a very pleasant 63 year old female who underwent a left lumpectomy and SLN biopsy followed by adjuvant chemotherapy for her left sided breast cancer and presents now to discuss adjuvant radiation therapy options. I have independently reviewed her imaging, operative and pathology reports. Briefly, she as found to have a cT2 N0 ER/AZ negative and HER2 positive breast cancer and electedto undergo surgery followed by adjuvant chemotherapy/radiation therapy. She underwent surgery on June 18, 2023 and was found to have a 2.2cm invasive ductal carcinoma that had with LVSI with william ins negative after re-excision by 10mm. Her tumor was ER/AZ negative and HER2 positive. She had twosentinel lymph nodes that were negative for tumor. She then received 6 cycles of adjuvant TCHP which was completed on November 13, 2023. She will receive Herceptin and Perjeta for 1 year. She presentsnow to discuss adjuvant radiation therapy. On exam, she appears well. She has no cervical, supra/infraclavicular, or axillary adenopathy. Her breasts are symmetric. She does have a mild defect or loss of tissue beneath her scar when she is lying supine. No worrisome lumps, masses or skin changes in either breast. We discussed the findings above and below in this note with the patient and and her . We discussed her whole breast treatment alternatives including various radiation fractionation regimens including conventionally vs ultra- hypofractionated radiation therapy (15 vs 5 fractions, respectively). We also discussed a boost given her ER/AZ negative status. We also discussed a simultaneous integrated boost (SIB) that can be done in 15 fractions. We discussed the rationale, risks, side effects and adjuvant goals of radiation therapy. We discussed the acute as well as middle or intermediate school principal risks, including, but not limited to fatigue, skin erythema/desquamation, fibrosis of the breast, small risks of bone fracture, radiation pneumonitis, cardiac disease, and secondary malignancies. We discussed possibly utilizing a breath hold technique for treatment if this is better and she is able. They understoodand their questions were answered. She wished to proceed with treatment. They have no completely dec ided on 9 vs 15 (SIB) vs 19 fractions and I gave them the weekend to think about things. I will call them on Saturday morning to make a final decision on which fractionation regimen. I will also look at her simulation to see if one is obviously better than the others. I told them that I thought theseoptions were really all equivalent for her. We tentatively plan on delivering 3600 cGy in 9 fractions or 4800/4005 in 15 fractions of 5005 cGy in 19 fractions starting December 09, 2023. My thanks to Drs. Quiroz, Wally, and Debbie for the opportunity to participate in this patient's care. EDUCATION Ready to learn, no apparent learning barriers were identified; learning preferences include listening. Explained diagnosis and treatment plan; patient expressed understanding of the content. CONSENT Discussed the risks, benefits, alternatives, and the necessity of other members of the healthcare team participating in the procedure. All questions answered and consent given. DIAGNOSIS #1 Stage IIA (pT2, pN0, cM0, G3, ER-, AZ-, HER2+) invasive ductal carcinoma of the left breast s/p left breast lumpectomy, left axillary sentinel lymph node biopsy, and re-excision of margins on June 18, 2023 #2 Adjuvant TCHP (taxotere/carboplatin/herceptin/perjeta) x 6 cycles completed on November 13, 2023,plan to continue Herceptin and Perjeta to complete one year Signed by: Stephanie Arzola M.D. 11/28/2023 4:51 PM MANAGER REVIEW documented in this encounter Plan of Treatment Not on file documented as of this encounter Visit Diagnoses Diagnosis Malignant Neoplasm Of Breast Female Left (HCC)- Primary documented in this encounter
--- OUTSIDE RECORDS SUMMARY | 2024-02-17 13:42 | XMS_ITS | Encounter Summary ---
Author Name Unknown Organization [facility] Address [address] [place] [address] Care Team Providers Care Safety Net Maker Name Role Phone Unavailable Primary Care Provider Unavailabl e Encounter Details Date Type Department Care Team (Late st Contact Info) Description 12/19/2023 Documentation Department of Radiation Oncology in [place], [place] [address] [place] [phone] Stephanie Arzola M.D. [address] [place] [address] Social History Tobacco Use Types Packs/Day Years [...] on file documented as of this encounter Miscellaneous Notes * Radiation Completion Notes - Claire Gaines RRichNRich - 12/19/2023 11:59 PM CDT DIAGNOSIS: 1. Malignant Neoplasm Of Breast Female Left (HCC) Attending Physician: Stephanie Arzola M.D. Treatment Intent: Curative Concomitant Therapy: None Single Plan Treatment Course: 1xBreast Plan ID Fractions Dose / Fraction (cGy) Dose Treated (cGy) Dose Planned (cGy) First Treatment Last Treatment Elapsed Days [id number] / 520 2600 2600 12/09/2023 12/13/2023 4 [id number] 250 1000 1000 12/16/2023 12/19/2023 3 Treatment Site Summary 3600 3600 12/09/2023 12/19/2023 10 Course Summary 12/09/2023 12/19/2023 10 Radiation Modality: Photons CLINICAL SUMMARY Mrs. Danelle Blackman completed radiation treatment as planned without interruptions. The course oftreatment was tolerated well. The patient experienced a single toxicity of grade 1 fatigue during radiation treatment. TREATMENT RESPONSE: Response to treatment will be determined by post-treatment imaging and/or laboratory work. RECOMMENDED FOLLOW UP: Primary Medical Oncologist. Dr. Quiroz Signed by: Claire Gaines R.N., 12/24/2023 1:[address] [facility] [address] [place] [address] documented in this encounter Plan of Treatment Not on file documented as of this encounter Visit Diagnoses Diagnosis Malignant Neoplasm Of Breast Female Left (HCC)- Primary documented in this encounter
--- OUTSIDE RECORDS SUMMARY | 2024-02-17 13:42 | XMS_ITS | Encounter Summary ---
Author Name Unknown Organization [facility] Address [address] [place] [address] Care Team Providers Care Sow Farm Barn Technician Name Role Phone Unavailable Primary Care Provider Unavailabl e Reason for Visit * Radiation Therapy (Routine) - Authorized Specialty Diagnoses / Procedures Referred By Contalanna t Referred To Contact Diagnoses Malignant Neoplasm Of Breast Female Left (HCC) Procedures Prior Auth Rad Tx [facility] RADTN [place] DEL >=1 MEV COMPLEX 3D Stephanie Arzola M.D. [address] [place] [phone] [facility] Referral ID Status Reason Start Date Expiration Date V isits Requested Visits Authorized [id number] Authorized 12/09/2023 11/26/2024 19 19 Encounter Details Date Type Department Care Team (Latest Contact Info) Description 12/13/2023 3:40 PM JAVA GROOVY DEVELOPER - 12/13/2023 11:59 PM [facility] Hospital Encounter Department of Radiation Oncology in [place], [place] [address] [place] [address] Stephanie Arzola M.D. [address] [place] [phone] Discharge Disposition: Home or Self Care Social [...]
--- OUTSIDE RECORDS SUMMARY | 2024-02-17 13:42 | XMS_ITS ---
Author Name Unknown Organization [facility] Address [address] [place] [address] Care Team Providers Care Sales Enablement Consultant Name Role Phone Unavailable Unavailable Unavailable Surgery Details Not on file Complications Check Surgery Details section. Procedure Estimated Blood Loss Check Surgery Details section. Procedure Findings Check Surgery Details section. Procedure Specimens Taken Check Surgery Details section.
--- OUTSIDE RECORDS SUMMARY | 2024-02-17 13:42 | XMS_ITS | Encounter Summary ---
Author Name Unknown Organization [facility] Address [address] [place] [address] Care Team Providers Care Medical Imaging Specialist Name Role Phone Unavailable Primary Care Provider Unavailabl e Reason for Referral * Radiation Therapy (Routine) - Closed Specialty Diagnoses / Procedures Referred By Hamilton velasquez Referred To Contact Diagnoses Malignant Neoplasm Of Breast Female Left (HCC) Procedures Initial Rad Onc Treatment Planning CT Simulation Stephanie Arzola M.D. [address] [place] [address] [facility] Region Referral ID Status Reason Start Date Expiration Date Visits Re quested Visits Authorized [id number] Closed 11/27/2023 11/26/2024 1 1 CTOR OF FINANCE Reason for Visit * Radiation Therapy (Routine) - Closed Specialty Diagnoses / Procedures Referred By Hamilton velasquez Referred To Contact Diagnoses Malignant Neoplasm Of Breast Female Left (HCC) Procedures Initial Rad Onc Treatment Planning CT Simulation Stephanie Arzola M.D. [address] [place] [address] [facility] Region Referral ID Status Reason Start Date Expiration Date Visits Re quested Visits Authorized [id number] Closed 11/27/2023 11/26/2024 1 1 Encounter Details Date Type Department Care Team (Latest Contact Info) Description 11/28/2023 2:45 PM DIRECTOR OF FINANCE - 11/28/2023 4:45 PM DIRECTOR OF FINANCE Hospital Encounter Department of Radiation Oncology in [place], [place] [address] [place] [phone] Stephanie Arzola M.D. [address] [place] [phone] Malignant Neoplasm Of Breast Female Left (HCC) Social History Tobacco Use Types Packs/Day Years [...] NAUSEA/VOMITING 11/20/2023 documented as of this encounter Procedure Notes * Kaylie Yuen, RTT - 11/28/2023 3:00 PM CSTAssociated Order(s): Initial Rad Onc Treatment Planning CT Simulation Pre-Procedure Diagnose(s): Malignant Neoplasm Of Breast Female Left (HCC) Post-Procedure Diagnose(s): Malignant Neoplasm Of Breast Female Left (HCC) Initial Rad Onc Treatment Planning CT Simulation Performed by: Stephanie Arzola M.D. Authorized by: Stephanie Arzola M.D. Simulation was performed under physician supervision based on physician order in preparation for radiation therapy. Physician was immediately available to provide assistance and direction throughout the procedure. Written consent for treatment was completed or confirmed. The patient was appropriately identified and placed in the treatment position using the necessary immobilization to ensure a reproducible treatment position. Reference tapia were placed to facilitate marking of isocenter. Area scanned:Chest Contrast used for the simulation procedure: None Patient position: Head first supine and arms up Custom immobilization: Vac-berny Motion management: Breath hold scan Bolus: No CT guidance: Following positioning of the patient, a series of slices was obtained to be utilized in treatment planning. CT images were transferred to the Grape[employer] treatment planning system, after a reference isocenter was determined and marked. Segmentation and treatment planning will take place prior to treatment delivery. Patient set up and imaging was appropriate and completed without incident. Architectural Model Maker use:No CTOR OF FINANCE Associated attestation - Stephanie Arzola M.D. - 11/28/2023 4:45 PM DIRECTOR OF FINANCE I was present during all critical and cortes portions of the procedure(s) and immediately available [facility] the entire duration. See note for details. documented in this encounter Plan of Treatment Not on file documented as of this encounter Procedures Procedure Name Priority Date/Time Associated Diagnosis Comments INITIAL RAD ONC TREATMENT PLANNING CT SIMULATION Routine 11/28/2023 3:00 PM DIRECTOR OF FINANCE Malignant Neoplasm Of Breast Female Left (HCC) documented in this encounter Results * Initial Rad Onc Treatment Planning CT Simulation (11/28/2023 3:00 PM DIRECTOR OF FINANCE) Narrative ARSALAN OVALLE - 11/28/2023 3:00 PM DIRECTOR OF FINANCE Kaylie Yuen, RTT ? 11/28/2023 ??3:04 PM Initial Rad Onc Treatment Planning CT Simulation Performed by: Stephanie Arzola M.D. Authorized by: Stephanie Arzola M.D. ?? Stephanie Arzola M.D. RADIATION ONCOLOG Y ORDERABLES Performing Organization Address City/State/[facility] Co de Phone Number ARSALAN OVALLE ron documented in this encounter Visit Diagnoses Diagnosis Malignant Neoplasm Of Breast Female Left (HCC) documented in this encounter
--- OUTSIDE RECORDS SUMMARY | 2024-02-17 13:42 | XMS_ITS | Clinical Summary ---
Author Name Unknown Organization [facility] Address [address] [place] [address] Care Team Providers Care Dredge Lever Operator Name Role Phone Unavailable Primary Care Provider Unavailabl e Source Comments Patient records contain information from all sites at [facility]. For routine questions regarding patient records, call [phone] during business hours, M-F 8:00 AM - 5:00 PM Central Time. Record requests for emergency care only can be directed to [phone] at any time.[facility] Allergies Active Allergy Reactions Criticality Noted Date [...] from 06/18/2023:Stage IIA(pT2, pN0, cM0, G3, ER-, GA-, HER2+) - Unsigned Encounters Date Type Department Care Team Description 12/19/2023 3:41 PM CDT - 12/19/2023 11:59 PM CDT Hospital Encounter Department of Radiation Oncology in [address] [phone] Stephanie Arzola M.D. Discharge Disposition: Home or Self Care 12/19/2023 Documentation Department of Radiation Oncology in [address] [phone] Stephanie Arzola M.D. 12/18/2023 3:42 PM CDT - 12/18/2023 11:59 PM CDT Hospital Encounter Department of Radiation Oncology in [address] [phone] Stephanie Arzola M.D. Discharge Disposition: Home or Self Care 12/17/2023 3:43 PM CDT - 12/17/2023 5:09 PM CDT Hospital Encounter Department of Radiation Oncology in [address] [address] Stephanie Arzola M.D. Malignant Neoplasm Of Breast Female Left (HCC) 12/17/2023 3:43 PM CDT - 12/17/2023 11:59 PM CDT Hospital Encounter Department of Radiation Oncology in [address] [address] Stephanie Arzola M.D. Discharge Disposition: Home or Self Care 12/16/2023 3:41 PM CDT - 12/16/2023 11:59 PM CDT Hospital Encounter Department of Radiation Oncology in [address] [phone] Stephanie Arzola M.D. Discharge Disposition: Home or Self Care 12/13/2023 3:40 PM DRIVER SERVICE TECHNICIAN - 12/13/2023 11:59 PM DRIVER SERVICE TECHNICIAN Hospital Encounter Department of Radiation Oncology in [address] [address] Stephanie Arzola M.D. Discharge Disposition: Home or Self Care 12/12/2023 3:43 PM DRIVER SERVICE TECHNICIAN - 12/12/2023 11:59 PM DRIVER SERVICE TECHNICIAN Hospital Encounter Department of Radiation Oncology in [address] [address] Stephanie Arzola M.D. Discharge Disposition: Home or Self Care 12/11/2023 3:41 PM DRIVER SERVICE TECHNICIAN - 12/11/2023 11:59 PM DRIVER SERVICE TECHNICIAN Hospital Encounter Department of Radiation Oncology in [address] [address] Stephanie Arzola M.D. Discharge Disposition: Home or Self Care 12/10/2023 4:00 PM DRIVER SERVICE TECHNICIAN - 12/10/2023 11:59 PM DRIVER SERVICE TECHNICIAN Hospital Encounter Department of Radiation Oncology in [address] [phone] Stephanie Arzola M.D. Discharge Disposition: Home or Self Care 12/10/2023 3:24 PM DRIVER SERVICE TECHNICIAN - 12/10/2023 3:59 PM DRIVER SERVICE TECHNICIAN Hospital Encounter Department of Radiation Oncology in [address] [address] Stephanie Arzola M.D. Malignant Neoplasm Of Breast Female Left (HCC) 12/09/2023 3:36 PM DRIVER SERVICE TECHNICIAN - 12/09/2023 11:59 PM DRIVER SERVICE TECHNICIAN Hospital Encounter Department of Radiation Oncology in [address] [address] Stephanie Arzola M.D. Discharge Disposition: Home or Self Care 12/02/2023 Clinical Communication Department of Radiation Oncology in [place], [place] [address] [place] [phone] Stephanie Arzola M.D. 11/28/2023 2:45 PM DRIVER SERVICE TECHNICIAN - 11/28/2023 4:45 PM DRIVER SERVICE TECHNICIAN Hospital Encounter Department of Radiation Oncology in [address] [phone] Stephanie Arzola M.D. Malignant Neoplasm Of Breast Female Left (HCC) 11/28/2023 1:13 PM DRIVER SERVICE TECHNICIAN - 11/28/2023 2:44 PM DRIVER SERVICE TECHNICIAN Hospital Encounter Department of Radiation Oncology in [address] [address] Stephanie Arzola M.D. Malignant Neoplasm Of Breast Female Left (HCC) (Primary Dx) 11/27/2023 Orders Only Department of Radiation Oncology in [address] [address] Kamila Montjeo P.A.-C., M.S. Malignant Neoplasm Of Breast Female Left (HCC) (Primary Dx) from Last 3 Months Social History Tobacco Use Types Packs/Day Years [...] Comments Blood Pressure 120/51 11/28/2023 1:18 PM DRIVER SERVICE TECHNICIAN Pulse 90 11/28/2023 1:18 PM DRIVER SERVICE TECHNICIAN Temperature 36.2 ??C (97.1 ??F) 12/17/2023 4:14 PM CD T Respiratory Rate - - Oxygen Saturation - - Inhaled Oxygen Concentration - - Weight 70 kg (154 lb 5.2 oz) 12/17/2023 4:14 PM CDT Height - - Body Mass Index - - Plan of Treatment Health Maintenance Due Date Last Done Comments CT Colonography 1961 Cologuard 1961 Colonoscopy 1961 Colorectal Cancer Screening 1961 Creatinine Level (Kidney Function Test) 1961 FIT 1961 Fasting Glucose for Diabetes Screening 1961 HIV Screening 1961 Hepatitis C Screening 1961 Lipid (Cholesterol) Screening 1961 Potassium Level 1961 Sodium Level 1961 Pneumococcal vaccine (0-64 years) (1 of 2 - PCV) 1967 Thyroid Stimulating Hormone (TSH) test for thyroid function 05/10/2023 05/10/2022 COVID-19 Vaccine (4 - 2022- season) 2023 09/12/2021, 01/14/2021, 12/24/2020 Influenza Vaccine (#1) 2023 Depression Screening (Annual PHQ-2) 10/07/2023 Mammogram 06/18/2024 06/18/2023, 06/07, 05/30/2023, Additional history exists DTaP,Tdap,and Td Vaccines (2 - Td or Tdap) 02/09/2025 02/09/2015 Cervical Cancer Screening 02/04/2027 02/05/2024 Zoster Vaccines Completed 07/28/2022, 04/21/2022 HPV Vaccines Aged Out No longer eligi ble based [...] DAILY TREATMENT INFORMATION Routine 12/13/2023 3:57 PM DRIVER SERVICE TECHNICIAN ARIA DAILY TREATMENT INFORMATION Routine 12/12/2023 4:21 PM DRIVER SERVICE TECHNICIAN ARIA DAILY TREATMENT INFORMATION Routine 12/11/2023 4:13 PM DRIVER SERVICE TECHNICIAN ARIA DAILY TREATMENT INFORMATION Routine 12/10/2023 4:13 PM DRIVER SERVICE TECHNICIAN ARIA DAILY TREATMENT INFORMATION Routine 12/09/2023 4:09 PM DRIVER SERVICE TECHNICIAN ARIA COURSE COMPLETE TREATMENT INFORMATION Routine 12/03/2023 10:46 AM DRIVER SERVICE TECHNICIAN INITIAL RAD ONC TREATMENT PLANNING CT SIMULATION Routine 11/28/2023 3:00 PM DRIVER SERVICE TECHNICIAN Malignant Neoplasm Of Breast Female Left (HCC) [...] ARIA Course End Date 4 15:[address] [facility] First Treatment Date 4 16:[address] [facility] Last Treatment Date 4 16:[address] [facility] Treatment Elapsed Days 10 [facility] Reference Point [id number] [facility] Dosage Given to Date cGy 3600 [facility] Plan ID [id number] S [facility] Fractions Treated to Date 4 [facility] Planned Total Fractions 4 [facility] Prescribed Dose Per Fraction 250 [facility] Prescription Dose in cGy 1000 [facility] Plan Primary Reference Point [id number] [facility] Plan ID [id number] [facility] Fractions Treated to Date 5 [facility] Planned Total Fractions 5 [facility] Prescribed Dose Per Fraction 520 [facility] Prescription Dose in cGy 2600 [facility] Plan Primary Reference Point [id number] [facility] 12/19/2023 4:05 PM CDT Provider Not In System RADIATION ONCOLOG Y ORDERABLES ARSALAN OVALLE na * Aria Daily Treatment Information (12/19/2023 4:05 PM CDT) Only the most recent of9 resultswithin the time period is included. Course ID 1xBreast ARRIAZA ARIA Course Start Date 4 09:50 CDT [facility] First Treatment Date 4 16:06 CDT [facility] Last Treatment Date 4 16:05 CDT [facility] Treatment Elapsed Days 10 [facility] Reference Point [id number] [facility] Dosage Given to Date cGy 3600 [facility] Session Dosage Given 250 [facility] Plan ID [id number] [facility] Fractions Treated to Date 4 [facility] ARIA Planned Total Fractions 4 [facility]A Prescribed Dose Per Fraction 250 [facility] ARIA Prescription Dose in cGy 1000 [facility]A Plan Primary Reference Point [id number] [facility]A ARIA 12/19/2023 4:05 PM CDT Provider Not In System RADIATION ONCOLOG Y ORDERABLES Performing Organization Address [facility] Co de Phone Number ARSALAN OVALLE na * Initial Rad Onc Treatment Planning CT Simulation (11/28/2023 3:00 PM DRIVER SERVICE TECHNICIAN) Narrative [facility] - 11/28/2023 3:00 PM DRIVER SERVICE TECHNICIAN Kaylie Yuen, RTT ? 11/28/2023 ??3:04 PM Initial Rad Onc Treatment Planning CT Simulation Performed by: Stephanie Arzola M.D. Authorized by: Stephanie Arzola M.D. ?? Stephanie Arzola M.D. RADIATION ONCOLOG Y ORDERABLES ARSALAN OVALLE na * MM clip placement LT-Outside Mammogram (06/18/2023 9:45 AM CDT) Narrative IIIL - 11/25/2023 3:41 PM DRIVER SERVICE TECHNICIAN This order has been created and auto-finalized to support the import of outside images. If available, original interpretation can be found on the Media Tab in Chart Review, in Document Viewer, or as an image in QREADS. If a re-interpretation or overread is required please follow defined workflow. ?? Provider Not In System IMG BI PROCEDURES Performing Organization Address [facility] Co de Phone Number IIIL NA from Last 3 Months or Most Recently Relevant to Health Maintenance
--- OUTSIDE RECORDS SUMMARY | 2024-02-17 13:42 | XMS_ITS | Encounter Summary ---
Author Name Unknown Organization [facility] Address [address] [place] [address] Care Team Providers Care Bar Pointer Name Role Phone Unavailable Primary Care Provider Unavailabl e Reason for Visit * Radiation Therapy (Routine) - Authorized Specialty Diagnoses / Procedures Referred By Contalanna t Referred To Contact Diagnoses Malignant Neoplasm Of Breast Female Left (HCC) Procedures Prior Auth Rad Tx MA RADTN TX DEL >=1 MEV COMPLEX 3D Stephanie Arzola M.D. [address] [place] [phone] [facility] Referral ID Status Reason Start Date Expiration Date V isits Requested Visits Authorized [id number] Authorized 12/09/2023 11/26/2024 19 19 Encounter Details Date Type Department Care Team (Latest Contact Info) Description 12/16/2023 3:41 PM CDT - 12/16/2023 11:59 PM CDT Hospital Encounter Department of Radiation Oncology in [place], [place] [address] [place] [address] Stephanie Arzola M.D. [address] [place] [phone] Discharge Disposition: Home or Self Care Social [...]
--- OUTSIDE RECORDS SUMMARY | 2024-02-17 13:42 | XMS_ITS | Encounter Summary ---
Author Name Unknown Organization [facility] Address [address] [place] [address] Care Team Providers Care Foreign Exchange Position Clerk Name Role Phone Unavailable Primary Care Provider Unavailabl e Encounter Details Date Type Department Care Team (Late st Contact Info) Description 12/02/2023 Clinical Communication Department of Radiation Oncology in [place], [place] [address] [place] [phone] Stephanie Arzola M.D. [address] [place] [address] Social History Tobacco Use Types Packs/Day Years [...] as of this encounter Miscellaneous Notes * Telephone Encounter - Stephanie Arzola M.D. - 12/02/2023 12:42 PM FOOD AND NUTRITION SUPERVISOR Mrs. Blackman returned my phone call and then I called her back. I shared with her that her volumes look quite reasonable for 9 or 19 fractions. I will plan of 9 fractions every other day. If the planning discovers something that makes her not eligible, then she and I agreed to go for 19 fractions. I will call her if we need to change to the nineteen daily fractions. Her questions were answered; she was comfortable with this plan. She starts next Saturday, December 09, 2023. I had initially spoken with her and told her 5 treatments total, but then recalled that she is not a candidate for partial breast radiation. I apologized for this confusion. AND NUTRITION SUPERVISOR documented in this encounter Plan of Treatment Not on file documented as of this encounter Visit Diagnoses Not on filedocumented in this encounter
--- OUTSIDE RECORDS SUMMARY | 2024-02-17 13:42 | XMS_ITS | Encounter Summary ---
Author Name Unknown Organization [facility] Address [address] [place] [address] Care Team Providers Care Certified Hearing Instrument Dispenser Name Role Phone Unavailable Primary Care Provider Unavailabl e Reason for Referral * Radiation Therapy (Routine) - Authorized Specialty Diagnoses / Procedures Referred By Hamilton velasquez Referred To Contact Diagnoses Malignant Neoplasm Of Breast Female Left (HCC) Procedures Management Visit Stephanie Arzola M.D. [address] [place] [address] [facility] Region Referral ID Status Reason Start Date Expiration Date V isits Requested Visits Authorized [id number] Authorized 11/27/2023 11/26/2024 10 10 NT LIAISON Reason for Visit * Radiation Therapy (Routine) - Authorized Specialty Diagnoses / Procedures Referred By Hamilton velasquez Referred To Contact Diagnoses Malignant Neoplasm Of Breast Female Left (HCC) Procedures Management Visit Stephanie Arzola M.D. [address] [place] [address] [facility] Region Referral ID Status Reason Start Date Expiration Date V isits Requested Visits Authorized [id number] Authorized 11/27/2023 11/26/2024 10 10 Encounter Details Date Type Department Care Team (Latest Contact Info) Description 12/10/2023 3:24 PM CLIENT LIAISON - 12/10/2023 3:59 PM CLIENT LIAISON Hospital Encounter Department of Radiation Oncology in [place], [place] [address] [place] [phone] Stephanie Arzola M.D. [address] [place] [address] Malignant Neoplasm Of Breast Female Left (HCC) [...] Sign Reading Time Taken Comments Blood Pressure - - Pulse - - Temperature 36.2 ??C (97.1 ??F) 12/10/2023 3:31 PM CS T Respiratory Rate - - Oxygen Saturation - - Inhaled Oxygen Concentration - - Weight 69.8 kg (153 lb 14.1 oz) 12/10/2023 3:31 PM CLIENT LIAISON Height - - Body Mass Index - [...] NAUSEA/VOMITING 11/20/2023 documented as of this encounter Progress Notes * Stephanie Arzola M.D. - 12/10/2023 3:45 PM CST SUBJECTIVE CHIEF COMPLAINT/REASON FOR VISIT Evaluation for side effects while receiving radiation treatment for 1. Malignant Neoplasm Of Breast Female Left (HCC) SUPERVISED BY: Stephanie Arzola M.D. HISTORY OF PRESENT ILLNESS Mrs. Danelel Blackman is a 63 y.o. female with Stage IIA (pT2, pN0, cM0, G3, ER- , OR-, HER2+) invasive ductal carcinoma of the left breast s/p left breast lumpectomy, left axillary sentinel lymph node biopsy, and re-excision of margins who is now undergoing radiotherapy. Treatment Course: 1xBreast Plan ID Fractions Dose / Fraction (cGy) Dose Treated (cGy) Dose Planned (cGy) First Treatment Last Treatment Elapsed Days [id number] 520 1040 2600 12/09/2023 12/10/2023 1 Course Summary 12/09/2023 12/10/2023 1 The patient was seen and examined today with Dr. Arzola. The patient reports to be feeling well overall. She denies any new issues or concerns at this time.She has not started to apply Mometasone but did pick it up from the pharmacy. PATIENT REPORTED SYMPTOM SCREEN: FATIGUE (Scale: 0 = no fatigue; 10 = worst fatigue you can imagine): 7 PAIN (Scale: 0 = no pain; 10 = worst pain you can imagine): 0 OVERALL QUALITY OF LIFE (Scale: 0 = as bad as can be; 10 = as good as can be): 9 OBJECTIVE Temp 36.2 ??C (Temporal) Wt 69.8 kg PHYSICAL EXAMINATION General: Alert and oriented, in no apparent distress. ASSESSMENT / PLAN #1 Stage IIA (pT2, pN0, cM0, G3, ER-, OR-, HER2+) invasive ductal carcinoma of the left breast s/p left breast lumpectomy, left axillary sentinel lymph node biopsy, and re-excision of margins on June 18, 2023 #2 Adjuvant TCHP (taxotere/carboplatin/herceptin/perjeta) x 6 cycles completed on November 13, 2023,plan to continue Herceptin and Perjeta to complete one year #3 Radiotherapy to left breast initiated on December 09, 2023; anticipated date of completion December. The patient is tolerating radiation treatment well overall. Discussed with patient that she should begin to apply Mometasone twice daily and for two weeks post radiation treatment. Patient should also apply lotion 2-3 times daily and should wait 30 minutes in between Mometasone and lotion application. She will continue with radiation treatment as planned. She will contact our care team with any questions or concerns. Signed by: Claire Gaines R.N. 12/10/2023 3:41 PM CLIENT LIAISON ATTESTATION FOR MANAGEMENT VISIT I saw and evaluated the patient and participated in the cortes portions of the service as noted above.I reviewed the documentation of Ms. Claire Gaines RN and agree with the findings and plan. Thepatient appears well on exam. We will continue with radiation as planned and monitor weekly. Stephanie Arzola M.D., 12/10/2023 NT LIAISON documented in this encounter Plan of Treatment Scheduled Orders Name Type Priority Associated Diagnoses Orde r Schedule Management Visit Radiation Oncology Routine Malignant Neoplasm Of Breast Female Left (HCC) Once for 1 Occurrences starting 12/10/2023 until 12/10/2023 documented as of this encounter Visit Diagnoses Diagnosis Malignant Neoplasm Of Breast Female Left (HCC) documented in this encounter
--- OUTSIDE RECORDS SUMMARY | 2024-02-17 13:42 | XMS_ITS | Encounter Summary ---
Author Name Unknown Organization [facility] Address [address] [place] [address] Care Team Providers Care Merchandise Flow Team Member Name Role Phone Unavailable Primary Care Provider Unavailabl e Reason for Visit * Radiation Therapy (Routine) - Authorized Specialty Diagnoses / Procedures Referred By Contalanna t Referred To Contact Diagnoses Malignant Neoplasm Of Breast Female Left (HCC) Procedures Prior Auth Rad Tx SC RADTN TX DEL >=1 MEV COMPLEX 3D Stephanie Arzola M.D. [address] [place] [phone] [facility] Referral ID Status Reason Start Date Expiration Date V isits Requested Visits Authorized [id number] Authorized 12/09/2023 11/26/2024 19 19 Encounter Details Date Type Department Care Team (Latest Contact Info) Description 12/19/2023 3:41 PM CDT - 12/19/2023 11:59 PM CDT Hospital Encounter Department of Radiation Oncology in [place], [place] [address] [place] [address] Stephanie Arzola M.D. [address] [place] [phone] Discharge Disposition: Home or Self Care Social [...]
--- OUTSIDE RECORDS SUMMARY | 2024-02-17 13:42 | XMS_ITS | Encounter Summary ---
Author Name Unknown Organization [facility] Address [address] [place] [address] Care Team Providers Care General Activities Therapist Name Role Phone Unavailable Primary Care Provider Unavailabl e Reason for Referral * Radiation Therapy (Routine) - Authorized Specialty Diagnoses / Procedures Referred By Hamilton velasquez Referred To Contact Diagnoses Malignant Neoplasm Of Breast Female Left (HCC) Procedures Management Visit Stephanie Arzola M.D. [address] [place] [address] [facility] Region Referral ID Status Reason Start Date Expiration Date V isits Requested Visits Authorized [id number] Authorized 11/27/2023 11/26/2024 10 10 Reason for Visit * Radiation Therapy (Routine) - Authorized Specialty Diagnoses / Procedures Referred By Hamilton velasquez Referred To Contact Diagnoses Malignant Neoplasm Of Breast Female Left (HCC) Procedures Management Visit Stephanie Arzola M.D. [address] [place] [address] [facility] Region Referral ID Status Reason Start Date Expiration Date V isits Requested Visits Authorized [id number] Authorized 11/27/2023 11/26/2024 10 10 Encounter Details Date Type Department Care Team (Latest Contact Info) Description 12/17/2023 3:43 PM CDT - 12/17/2023 5:09 PM CDT Hospital Encounter Department of Radiation Oncology in [place], [place] [address] [place] [address] Stephanie Arzola M.D. [address] [place] [phone] Malignant Neoplasm Of Breast Female Left (HCC) [...] - - Temperature 36.2 ??C (97.1 ??F) 12/17/2023 4:14 [...] Progress Notes * Stephanie Arzola M.D. - 12/17/2023 4:30 PM CDT SUBJECTIVE CHIEF COMPLAINT/REASON FOR VISIT Evaluation for side effects while receiving radiation treatment for 1. Malignant Neoplasm Of Breast Female Left (HCC) SUPERVISED BY: Stephanie Arzola M.D. HISTORY OF PRESENT ILLNESS Mrs. Danelle Blackman is a 63 y.o. female with Stage IIA (pT2, pN0, cM0, G3, ER- , AL-, HER2+) invasive ductal carcinoma of the left breast s/p left breast lumpectomy, left axillary sentinel lymph node biopsy, and re-excision of margins who is now undergoing radiotherapy. Treatment Course: 1xBreast Plan ID Fractions Dose / Fraction (cGy) Dose Treated (cGy) Dose Planned (cGy) First Treatment Last Treatment Elapsed Days [id number] 520 2600 2600 12/09/2023 12/13/2023 4 [id number] 195 498 1799 12/16/2023 12/17/2023 1 Treatment Site Summary 3100 3600 12/09/2023 12/17/2023 8 Course Summary 12/09/2023 12/17/2023 8 The patient was seen and examined today with Dr. Arzola. The patient reports to be feeling well overall. She denies any new issues or concerns at this time.She is applying Mometasone twice a day and moisturizing lotion twice a day. PATIENT REPORTED SYMPTOM SCREEN: FATIGUE (Scale: 0 = no fatigue; 10 = worst fatigue you can imagine): 2 PAIN (Scale: 0 = no pain; 10 = worst pain you can imagine): 0 OVERALL QUALITY OF LIFE (Scale: 0 = as bad as can be; 10 = as good as can be): 9 OBJECTIVE Temp 36.2 ??C (Temporal) Wt 70 kg PHYSICAL EXAMINATION General: Alert and oriented, in no apparent distress. Skin: minimal dryness to the left breast region. ASSESSMENT / PLAN #1 Stage IIA (pT2, pN0, cM0, G3, ER-, AL-, HER2+) invasive ductal carcinoma of the left [...] patient is tolerating radiation treatment well overall. Patient will continue current skin careroutine for the next two weeks post completion of radiation. She will then stop Mometasone ointment. Lotion can then be used as needed for any dryness that may be present. Patient will continue monthly self breast examinations in the coming weeks. Dr. Quiroz will continue to see patient in follow up. We will keep Radiation Oncology follow up to an as needed basis only. She will continue with radiation treatment as planned. She will contact our care team with any questions or concerns. Toxicities reviewed with Dr. Arzola today. Signed by: Callie Cummings R.N. 12/17/2023 4:28 PM CDT ATTESTATION FOR MANAGEMENT VISIT I saw and evaluated the patient and participated in the cortes portions of the service as noted above.I reviewed the documentation of Ms. Callie Cummings RN and agree with the findings and plan. The patient appears well on exam. We will continue with radiation as planned and we anticipate that she willcomplete this week. We anticipate that Mrs. Danelle Blackman will complete radiation treatment as planned without interruptions. The course of treatment was tolerated well. The patient experienced toxicities of grade 1 fatigue during radiation treatment. Follow-up will be with Dr. Quiroz and I will see her again as needed. Stephanie Arzola M.D., 12/17/2023 documented in this encounter Plan of Treatment Scheduled Orders Name Type Priority Associated Diagnoses Orde r Schedule Management Visit Radiation Oncology Routine Malignant Neoplasm Of Breast Female Left (HCC) Once for 1 Occurrences starting 12/17/2023 until 12/17/2023 documented as of this encounter Visit Diagnoses Diagnosis Malignant Neoplasm Of Breast Female Left (HCC) documented in this encounter
--- OUTSIDE RECORDS SUMMARY | 2024-02-17 13:42 | XMS_ITS | Encounter Summary ---
Author Name Unknown Organization [facility] Address [address] [place] [address] Care Team Providers Care Academic Affairs Director Name Role Phone Unavailable Primary Care Provider Unavailabl e Reason for Visit * Radiation Therapy (Routine) - Authorized Specialty Diagnoses / Procedures Referred By Contalanna t Referred To Contact Diagnoses Malignant Neoplasm Of Breast Female Left (HCC) Procedures Prior Auth Rad Tx [place] RADTN TX DEL >=1 MEV COMPLEX 3D Stephanie Arzola M.D. [address] [place] [phone] [facility] Referral ID Status Reason Start Date Expiration Date V isits Requested Visits Authorized [id number] Authorized 12/09/2023 11/26/2024 19 19 Encounter Details Date Type Department Care Team (Latest Contact Info) Description 12/10/2023 4:00 PM ADHESION TESTER - 12/10/2023 11:59 PM [facility] Hospital Encounter Department of Radiation Oncology in [place], [place] [address] [place] [address] Stephanie Arzola M.D. [address] [place] [phone] Discharge Disposition: Home or Self Care Social [...]
--- OUTSIDE RECORDS SUMMARY | 2024-02-17 13:43 | XMS_ITS | Clinical Summary ---
Author Name Unknown Organization [facility] Address Critical access hospital0 [facility] [place] [address] Care Team Providers Care Retail Shift Manager Name Role Phone No Ref-Primary, Physician Primary Care Provider Allergies No known active allergies Medications Medication Sig Dispensed Refills Start Date End Date Status azithromycin (ZITHROMAX) 250 MG tabletIndications:Bro nchitis 2 tablets day 1 then 1 tablet daily for 4 days 6 tablet 12/05/2019 Active Active Problems No known active [...] Comments Blood Pressure 124/78 12/05/2019 2:59 PM HEALTH SERVICES ADMINISTRATOR Pulse 84 12/05/2019 2:59 PM HEALTH SERVICES ADMINISTRATOR Temperature 37.8 ??C (100 ??F) 12/05/2019 2:59 PM HEALTH SERVICES ADMINISTRATOR Respiratory Rate 16 12/05/2019 2:59 PM HEALTH SERVICES ADMINISTRATOR Oxygen Saturation 96% 12/05/2019 2:59 PM HEALTH SERVICES ADMINISTRATOR Inhaled Oxygen Concentration - - Weight 68 kg (150 lb) 12/05/2019 2:59 PM HEALTH SERVICES ADMINISTRATOR Height - - Body Mass Index - - Plan of Treatment Not on file Procedures Procedure Name Priority Date/Time Associated Diagnosis Comments HPV HOLD (LAB ONLY) Routine 02/05/2024 4 :00 PM CDT Encounter for screening for malignant neoplasm of cervix GYNECOLOGIC CYTOLOGY Routine 02/05/2024 4:00 PM CDT Encounter for screening for malignant neoplasm of cervix HPV HIGH RISK TYPES DNA CERVICAL Routine 02/05/2024 4:00 PM CDT Encounter for screening for malignant neoplasm of cervix from Last 3 Months Results * HPV Hold (Lab Only) (02/05/2024 4:00 PM CDT) Brushing CERVIX UTERI STRUCTURE / Unknown Non-blood Collection / Unknown 02/05/2024 4:00 PM CDT 02/12/2024 11:11 AM CDT Jennie HERNANDEZ - [facility] Molecular [facility] [address] [facility], [address] [place] [phone] * Gynecologic Cytology (PAP) (02/05/2024 4:00 PM CDT) Interpretation Negative for Intraepithelial Lesion or Malignancy (NILM) 02/11/2024 8:03 AM CDT [facility] Comment Papanicolaou Test Limitations: Cervical cytology is a screening test with limited sensitivity, and regular screening is critical for cancer prevention. Pap tests are primarily effective for the diagnosis/prevent ion of squamous cell carcinoma, not adenocarcinoma or other cancers. 02/11/2024 8:03 AM CDT [facility] Specimen Adequacy Satisfactory for evaluation. ??Specimen was unable to be imaged on the FocalPoint Slide Easement Worker. Transformation zone component absent, atrophy 02/11/2024 8:03 AM CDT [facility] LMP/Menopause Date AGE 46 02/11/2024 8:03 AM CDT [facility] Reflex Testing Yes regardless of result 02/11/2024 8:03 AM CDT [facility] Previous Abnormal? No 02/11/2024 8:03 AM CDT [facility] Previous Abnormal Diagnosis NIL 02/11/2024 8:03 AM CDT [facility] Performing Labs The technical component of this testing was completed at [facility] 02/11/2024 8:03 AM CDT [facility] Brushing CERVIX UTERI STRUCTURE / Unknown 02/05/2024 4:00 PM CDT 02/06/2024 7:44 AM CDT Jennie Henley MD LAB - BEAKER AP [facility] Specialty Lab [address] [facility], [address] [place] [phone], [facility] * HPV High Risk Types DNA Cervical (02/05/2024 4:00 PM CDT) Other HR HPV Negative Negative 02/15/2024 9:19 AM CDT [facility] HPV16 DNA Negative Negative 02/15/2024 9:19 AM CDT [facility] HPV18 DNA Negative Negative 02/15/2024 9:19 AM CDT [facility] FINAL DIAGNOSIS This patient's sample is negative for HPV DNA. This test was developed and its performance characteristics determined by the [facility]. It has not been cleared or approved by the FDA. The laboratory is regulated under CLIA as qualified to perform high-complexity testing. This test is used for clinical purposes. It should not be regarded as investigational or for research. METHODOLOGY: The Esme Dada 4800 system uses automated extraction, simultaneous amplification of HPV (L1 region) and beta-globin, followed by real time detection of fluorescent labeled HPV and beta globin using specific oligonucleotide probes. The test specifically identifies types HPV 16 DNA and HPV 18 DNA while concurrently detecting the rest of the high risk types (31, 33, 35, 39, 45, 51, 52, 56, 58, 59, 66 or 68). COMMENTS: This test is not intended for use as a screening device for woman under age 30 with normal cervical cytology. Results should be correlated with cytologic and histologic findings. Close clinical followup is recommended. 02/15/2024 9:19 AM CDT [facility] Brushing CERVIX UTERI STRUCTURE / Unknown Non-blood Collection / Unknown 02/05/2024 4:00 PM CDT 02/12/2024 11:11 AM CDT Jennie Henley MD LAB - BLOOD ORDERABL ES [facility] Molecular Diagnostics [address] [facility] [address] [facility], [address] [place] [phone], [facility] from Last 3 Months Care Teams Retail Shift Manager Relationship Specialty Start Date End Date No Ref-Primary, Physician PCP - General 12/05/19
--- OUTSIDE RECORDS SUMMARY | 2024-02-17 13:43 | XMS_ITS | Encounter Summary ---
Author Name Unknown Organization [facility] Address [address] [place] [address] Care Team Providers Care Training Designer Name Role Phone Unavailable Primary Care Provider Unavailabl e Reason for Referral * Outpatient (Routine) - Authorized Specialty Diagnoses / Procedures Referred By Contac t Referred To Contact Radiation Oncology Stephanie Arzola M.D. [address] [place] [phone] [facility] Region Referral ID Status Reason Start Date Expiration Date V isits Requested Visits Authorized [id number] Authorized 11/27/2023 05/28/2025 10 10 MODELER * Specialty Diagnoses / Procedures Referred By Contac t Referred To Contact Kamila Montejo P.A.-C., M.S. [address] [place] [phone] [facility] Region Referral ID Status Reason Start Date Expiration Date Visits Re quested Visits Authorized Scheduling Instructions Please only schedule if patient is receiving more than 10 fractions. MODELER * Specialty Diagnoses / Procedures Referred By Contac t Referred To Contact Kamila Montejo P.A.-C., M.S. [address] [place] [phone] [facility] Region Referral ID Status Reason Start Date Expiration Date Visits Re quested Visits Authorized MODELER * Radiation Therapy (Routine) - Authorized Specialty Diagnoses / Procedures Referred By Contac t Referred To Contact Diagnoses Malignant Neoplasm Of Breast Female Left (HCC) Procedures Management Visit Stephanie Arzola M.D. [address] [place] [phone] [facility] Region Referral ID Status Reason Start Date Expiration Date V isits Requested Visits Authorized [id number] Authorized 11/27/2023 11/26/2024 10 10 MODELER * Radiation Therapy (Routine) - Authorized Specialty Diagnoses / Procedures Referred By Hamilton velasquez Referred To Contact Diagnoses Malignant Neoplasm Of Breast Female Left (HCC) Procedures Prior Auth Rad Tx [place] RADTN TX DEL >=1 MEV COMPLEX 3D Stephanie Arzola M.D. [address] [place] [address] [facility] Referral ID Status Reason Start Date Expiration Date V isits Requested Visits Authorized [id number] Authorized 12/09/2023 11/26/2024 19 19 MODELER * Radiation Therapy (Routine) - Closed Specialty Diagnoses / Procedures Referred By Hamilton velasquez Referred To Contact Diagnoses Malignant Neoplasm Of Breast Female Left (HCC) Procedures Initial Rad Onc Treatment Planning CT Simulation Stephanie Arzola M.D. [address] [place] [phone] [facility] Region Referral ID Status Reason Start Date Expiration Date Visits Re quested Visits Authorized [id number] Closed 11/27/2023 11/26/2024 1 1 MODELER Encounter Details Date Type Department Care Team (Late st Contact Info) Description 11/27/2023 Orders Only Department of Radiation Oncology in [place], [place] [address] [place] [phone] Kamila Montejo P.A.-C., M.S. [address] [place] [phone] Malignant Neoplasm Of Breast Female Left (HCC) (Primary Dx) Social History Tobacco Use Types Packs/Day Years Used Date Smoking Tobacco: Never Assessed Nutrition Answer Date Recorded Nutrition: EVOO Fat Source Unknown 06/11 Nutrition: Servings of Fruits/Vegetables per Day Not on file 06/11/2023 Dental Answer Date Recorded Dental: Regular Dentist Unknown 06/11/20 23 Sex and Gender Information Value Date Recorded Sex Assigned at Not on file Gender Identity Not on file Sexual Orientation Not on file documented as of this encounter Plan of Treatment Scheduled Orders Name Type Priority Associated Diagnoses Order Schedule Prior Auth Rad Tx Radiation Oncology Routine Malignant Neoplasm Of Breast Female Left (HCC) Ordered: 11/27/2023 Management Visit Radiation Oncology Routine Malignant Neoplasm Of Breast Female Left (HCC) 10 Occurrences starting 11/27/2023 until 11/27/2024 Scheduled Referrals Name Type Priority Associated Diagnoses Order Schedule Radiation Oncology - PRO education visit Outpatient Referral Routine Malignant Neoplasm Of Breast Female Left (HCC) Expected: 11/27/2023 (Approximate), Expires: 02/24/2025 Radiation Oncology - Nurse education visit (clinic) Outpatient Referral Routine Malignant Neoplasm Of Breast Female Left (HCC) Expected: 11/27/2023 (Approximate), Expires: 11/27/2024 Radiation Oncology nurse visit (clinic) Outpatient Referral Routine 10 Occurrenc es starting 11/27/2023 until 11/27/2024 documented as of this encounter Results * Initial Rad Onc Treatment Planning CT Simulation (11/28/2023 3:00 PM DATA MODELER) Narrative ARSALAN OVALLE - 11/28/2023 3:00 PM DATA MODELER Kaylie Yuen, RTT ? 11/28/2023 ??3:04 PM Initial Rad Onc Treatment Planning CT Simulation Performed by: Stephanie Arzola M.D. Authorized by: Stephanie Arzola M.D. ?? Stephanie Arzola M.D. RADIATION ONCOLOG Y ORDERABLES ARSALAN OVALLE na documented in this encounter Visit Diagnoses Diagnosis Malignant Neoplasm Of Breast Female Left (HCC)- Primary Malignant Neoplasm Of Breast Female Left (HCC) documented in this encounter
--- OUTSIDE RECORDS SUMMARY | 2024-02-17 13:43 | XMS_ITS | Clinical Summary ---
Author Name Unknown Organization [facility] Address [address] [place] [address] Care Team Providers Care Inflated Pad Buffer Name Role Phone Unavailable Primary Care Provider Unavailabl e Source Comments You are receiving this document as you are listed as the primary care provider,follow-up provider, or the patient has been referred to you for consultation.This is in compliance with the Medicare and[facility] EHR Incentive Program,which states Providers who transition their patient to another setting of careor provider of care or refers their patient to another provider of care shouldprovide summary care record for each transition of care or referral. [facility] Allergies No known active allergies Medications Medication Sig Dispensed Refills Start Date End Date Status insulin isophane (NOVOLIN N) 100 UNIT/ML injection Inject subcutaneously daily. 40 units AM, 12 units PM Active insulin regular (NOVOLIN R) 100 UNIT/ML injection Inject 7 Units subcutaneously daily. Before dinner Active blood glucose (ACCU-CHEK GUIDE) test stripIndications:C ontrolled type 1 diabetes mellitus without complication ([facility]) Use 1 Each to test as needed for Blood Sugar >. Use as directed. 100 Strip 11 06/29/2021 Active lancets (ACCU-CHEK SOFTCLIX)Indicatio ns:Controlled type 1 diabetes mellitus without complication ([facility]) Use 1 Each to test three times a day. 100 Each 11 06/29/2021 Active lancet deviceIndications: Controlled type 1 diabetes mellitus without complication ([facility]) Use 1 Each to test as needed. 1 Each 06/29/2021 Active levothyroxine (SYNTHROID) 100 MCG tabletIndications: Hypothyroidism (acquired) ([facility]) Take 1 Tablet by mouth daily. 90 [...] C Screening (Preventive Services) 1961 Mammogram 1961 Pneumococcal (1 - PCV) 1967 HIV Screening (Preventive Services) 1977 Adult Preventive Visit 1979 Zoster/Shingles (1 of 2) 2011 Diabetes: HGBA1C 09/28/2021 06/29/2021 Diabetes: Creatinine 06/29/2022 06/29/2021 Diabetes: Urine Microalbumin 06/29/2022 06/29/2021 COVID-19 Vaccine ( - season) 2023 01/14/2021, 12/24/2020 Influenza (Season Ended) 2024 DTaP/Tdap/Td (2 - Tdap) 02/09/2025 02/09/2015 Diabetes: [...] Procedure Name Priority Date/Time Associated Diagnosis Comments ALBUMIN/CREAT RATIO Routine 06/29/2021 2 :56 PM CDT Controlled type 1 diabetes mellitus without complication ([facility]) CREATININE / GFR Routine 06/29/2021 2:44 PM CDT Controlled type 1 diabetes mellitus without complication ([facility]) LIPID PANEL & DIRECT LDL (IF NEEDED) Routine 06/29/2021 2:44 PM CDT Controlled type 1 diabetes mellitus without complication ([facility]) POCT GLYCOSYLATED HEMOGLOBIN (HGB A1C) Routine 06/29/2021 2:22 PM CDT Controlled type 1 diabetes mellitus without complication ([facility]) from Last 3 Months or Most Recently Relevant to Health Maintenance Results * Albumin/Creatinine Ratio,Random Urine (06/29/2021 2:56 PM CDT) Albumin/Creati nine Ratio, Urine, Random 4 <30 mg/g 06/29/2021 4:01 PM CDT [facility] Urine Non-blood Collection / Unknown 06/29/2021 2:56 PM CDT 06/29/2021 2:56 PM CDT Ozzy Rich MD LAB_1 [facility] [address] [place] [address], [facility] [phone] * (ABNORMAL) Lipid Panel - LDLD If Trig High (06/29/2021 2:44 PM CDT) Cholesterol 230(H) 0 - 199 mg/dL 06/29/2021 3:58 PM CDT [facility] Triglyceride 309(H) <=149 mg/dL 06/29/2021 3:58 PM CDT [facility] HDL Cholesterol 52 >=40 mg/dL 3:58 PM CDT [facility] LDL, Calculated 116 <130 mg/dL 3:58 PM CDT [facility] Non HDL Chol, Calculated 178(H) <=159 mg/dL 06/29/2021 3:58 PM CDT [facility] Cholesterol/HDL Ratio 4.4 06/29/2021 3:58 PM CDT [facility] Hours Fasting 2 06/29/2021 3:58 PM CDT [facility] Blood Venipuncture / Unknown 06/29/2021 2:44 PM CDT 06/29/2021 2:44 PM CDT Ozzy Rich MD LAB_1 Performing Organization Address [facility] de Phone Number [facility] [address] [place] [address], [facility] [phone] * Creatinine (06/29/2021 2:44 PM CDT) Creatinine 0.80 0.55 - 1.02 mg/dL 06/29/2021 3:58 PM CDT [facility] GFR, Estimated >60 >60 mL/min/1.7 3m2 06/29/2021 3:58 PM CDT [facility] Blood Venipuncture / Unknown 06/29/2021 2:44 PM CDT 06/29/2021 2:44 PM CDT Ozzy Rich MD LAB_1 Performing Organization Address [facility] de Phone Number [facility] [address] [place] [address], [facility] [phone] * (ABNORMAL) POCT glycosylated hemoglobin (Hb A1C) (06/29/2021 2:22 PM CDT) Hemoglobin A1C (Rapid) 8.9(A) 5.6 % POCT Cartridge Lot# [id number] POCT Blood 06/29/2021 2:22 PM CDT Ozzy Rich MD ET POINT OF CARE TEST ENTER/EDIT ORDERABLES Performing Organization Address [facility] Co de Phone Number POCT from Last 3 Months or Most Recently Relevant to Health Maintenance
--- OUTSIDE RECORDS SUMMARY | 2024-02-17 13:43 | XMS_ITS | Referral Summary ---
Author Name Unknown Organization [facility] Address [facility] [place] [address] Care Team Providers Care Design Drafter Chief Name Role Phone No Ref-Primary, Physician Primary [...] Comments Blood Pressure 124/78 12/05/2019 2:59 PM POSTER Pulse 84 12/05/2019 2:59 PM POSTER Temperature 37.8 ??C (100 ??F) 12/05/2019 2:59 PM POSTER Respiratory Rate 16 12/05/2019 2:59 PM POSTER Oxygen Saturation 96% 12/05/2019 2:59 PM POSTER Inhaled Oxygen Concentration - - Weight 68 kg (150 lb) 12/05/2019 2:59 PM POSTER Height - - Body Mass Index - [...] [facility] Molecular Diagnostics [address] [facility] Unit [facility], [address] [place] [phone] * Gynecologic Cytology (PAP) (02/05/2024 4:00 PM [...] to be imaged on the FocalPoint Slide Computer Security Specialist. Transformation zone component absent, atrophy 02/11/2024 8:03 AM CDT [facility] LMP/Menopause Date AGE 46 02/11/2024 8:03 AM CDT [facility] Reflex Testing Yes regardless of result 02/11/2024 8:03 AM CDT [facility] Previous Abnormal? No 02/11/2024 8:03 AM CDT [facility] Previous Abnormal Diagnosis NIL 02/11/2024 8:03 AM CDT [facility] Performing Labs The technical component of this testing was completed at [facility] 02/11/2024 8:03 AM CDT [facility] Brushing CERVIX UTERI STRUCTURE / Unknown 02/05/2024 4:00 PM CDT 02/06/2024 7:44 AM CDT Jennie Henley MD LAB - BEAKER AP [facility] Specialty Lab [address] [facility], [address] [place] [phone], [facility] * HPV High Risk Types [...] and its performance characteristics determined by the [facility], Molecular Diagnostics Laboratory. It has not been [...] ORDERABL ES [facility] Molecular Diagnostics [address] [facility] [address] [facility], [address] [place] [phone], [facility] from Last 3 Months Care Teams Design Drafter Chief Relationship Specialty Start Date End Date No Ref-Primary, Physician PCP - General 12/05/19
== END 2024-02-17 13:41 | disposition home or self-care (01) ==
LOC: RAD 13:40
PROVIDERS: PCP Emergency Medicine; Visit Provider Physician Assistant
DX: C50.912 Malignant neoplasm of unspecified site of left female breast (principal); I34.0 Nonrheumatic mitral (valve) insufficiency; Z51.81 Encounter for therapeutic drug level monitoring; Z79.899 Other long term (current) drug therapy
CPT/HCPCS: 93306

== ENCOUNTER 2024-05-20 08:26 | Outpatient (CLI) | payer BC, SELFPAY ==
--- OUTSIDE RECORDS SUMMARY | 2024-05-20 08:29 | XMS_ITS | Clinical Summary ---
Author Organization [facility] Address [address] [place] [address]. [place] [address] Care Team Providers Care Direct Support Worker Name Role Phone No Ref-Primary, Physician Primary [...] Comments Blood Pressure 124/78 12/05/2019 2:59 PM CAP AND HAT PRODUCTION SUPERVISOR Pulse 84 12/05/2019 2:59 PM CAP AND HAT PRODUCTION SUPERVISOR Temperature 37.8 ??C (100 ??F) 12/05/2019 2:59 PM CAP AND HAT PRODUCTION SUPERVISOR Respiratory Rate 16 12/05/2019 2:59 PM CAP AND HAT PRODUCTION SUPERVISOR Oxygen Saturation 96% 12/05/2019 2:59 PM CAP AND HAT PRODUCTION SUPERVISOR Inhaled Oxygen Concentration - - Weight 68 kg (150 lb) 12/05/2019 2:59 PM CAP AND HAT PRODUCTION SUPERVISOR Height - - Body Mass Index - - Plan of Treatment Not on file Care Teams Direct Support Worker Relationship Specialty Start Date End Date No Ref-Primary, Physician PCP - General 12/05/19
--- OUTSIDE RECORDS SUMMARY | 2024-05-20 08:29 | XMS_ITS | Clinical Summary ---
Author Organization [facility] Address [address] [place] [address] Care Team Providers Care Echo Vascular Tech Name Role Phone Unavailable Primary Care Provider Unavailabl e Source Comments Patient records contain information from all sites at [facility]. For routine questions regarding patient records, call [phone] during business hours, M-F 8:00 AM - 5:00 PM Central Time. Record requests for emergency care only can be directed to [phone] at any time.[facility] Allergies Active Allergy Reactions Criticality Noted Date [...] from 06/18/2023:Stage IIA(pT2, pN0, cM0, G3, ER-, DC-, HER2+) - Unsigned Social History Tobacco Use [...] Comments Blood Pressure 120/51 11/28/2023 1:18 PM VARYING EXCEPTIONALITIES TEACHER Pulse 90 11/28/2023 1:18 PM VARYING EXCEPTIONALITIES TEACHER Temperature 36.2 ??C (97.1 ??F) 12/17/2023 4:14 [...] for thyroid function 05/10/2023 05/10/2022 COVID-19 Vaccine (2022-24 season) 2023 09/12/2021, 01/14/2021, 12/24/2020 Depression Screening (Annual PHQ-2) 10/07/2023 Mammogram 06/18/2024 06/18/2023, 06/07, 05/30/2023, Additional history exists Influenza Vaccine (#1) 2024 DTaP,Tdap,and Td Vaccines (2 - Td or Tdap) 02/09/2025 02/09/2015 Cervical Cancer Screening 02/04/2027 02/05/2024 Zoster Vaccines Completed 07/28/2022, 04/21/2022 HPV Vaccines Aged Out No longer eligi ble based on patient's age to complete this topic Procedures Procedure Name Priority Date/Time Associated Diagnosis Comments OUTSIDE MG MAMMOGRAM Routine 06/18/2023 9:45 AM CDT from Last 3 Months or Most Recently Relevant to Health Maintenance Results * MM clip placement LT-Outside Mammogram (06/18/2023 9:45 AM CDT) Narrative [facility] - 11/25/2023 3:41 PM VARYING EXCEPTIONALITIES TEACHER This order has been created and auto-finalized to support the import of outside images. If available, original interpretation can be found on the Media Tab in Chart Review, in Document Viewer, or as an image in QREADS. If a re-interpretation or overread is required please follow defined workflow. ?? Provider Not In System IMG BI PROCEDURES [facility] NA from Last 3 Months or Most Recently Relevant to Health Maintenance
--- OUTSIDE RECORDS SUMMARY | 2024-05-20 08:29 | XMS_ITS | Clinical Summary ---
[facility] Address [address] [place] [address] Care Team Providers Care Kettle Chipper Name Role Phone Unavailable Primary Care Provider Unavailabl e Source Comments You are receiving this document as you are listed as the primary care provider,follow-up provider, or the patient has been referred to you for consultation.This is in compliance with the Medicare andAv[facility] Health Systemcaid EHR Incentive Program,which states Providers who transition their patient to another setting of careor provider of care or refers their patient to another provider of care shouldprovide summary care record for each transition of care or referral. [facility] Allergies No known active allergies Medications Medication Sig Dispensed Refills Start Date End Date Status insulin isophane (NOVOLIN N) 100 UNIT/ML injection Inject subcutaneously daily. 40 units AM, 12 units PM Active insulin regular (NOVOLIN R) 100 UNIT/ML injection Inject 7 Units subcutaneously daily. Before dinner Active blood glucose (ACCU-CHEK GUIDE) test stripIndications:C ontrolled type 1 diabetes mellitus without complication ([facility]) Use 1 Each to test as needed for Blood Sugar >. Use as directed. 100 Strip 11 06/29/2021 Active lancets (ACCU-CHEK SOFTCLIX)Indicatio ns:Controlled type 1 diabetes mellitus without complication ([facility]) Use 1 Each to test three times a day. 100 Each 11 06/29/2021 Active lancet deviceIndications: Controlled type 1 diabetes mellitus without complication ([facility]) Use 1 Each to test as needed. 1 Each 06/29/2021 Active levothyroxine (SYNTHROID) 100 MCG tabletIndications: Hypothyroidism (acquired) ([facility]) Take 1 Tablet by mouth daily. [...] Diabetes: Urine Microalbumin 06/29/2022 06/29/2021 COVID-19 Vaccine (3 - season) 2023 01/14/2021, 12/24/2020 Influenza (#1) 2024 DTaP/Tdap/Td (2 - Tdap) 02/09/2025 02/09/2015 [...] 4 <30 mg/g 06/29/2021 4:01 PM CDT [facility] Urine Non-blood Collection / Unknown 06/29/2021 2:56 PM CDT 06/29/2021 2:56 PM CDT Ozzy Rich MD LAB_1 [facility] [address] [place] [address], [facility] [phone] * (ABNORMAL) Lipid Panel - LDLD If Trig High (06/29/2021 2:44 PM CDT) Cholesterol 230(H) 0 - 199 mg/dL 06/29/2021 3:58 PM CDT [facility] Triglyceride 309(H) <=149 mg/dL 06/29/2021 3:58 PM CDT [facility] HDL Cholesterol 52 >=40 mg/dL 3:58 PM CDT [facility] LDL, Calculated 116 <130 mg/dL 3:58 PM CDT [facility] Non HDL Chol, Calculated 178(H) <=159 mg/dL 06/29/2021 3:58 PM CDT [facility] Cholesterol/HDL Ratio 4.4 06/29/2021 3:58 PM CDT [facility] Hours Fasting 2 06/29/2021 3:58 PM CDT [facility] Blood Venipuncture / Unknown 06/29/2021 2:44 PM CDT 06/29/2021 2:44 PM CDT Ozzy Rich MD LAB_1 Performing Organization Address [facility] de Phone Number [facility] [address] [place] [address], [facility] [phone] * Creatinine (06/29/2021 2:44 PM CDT) Creatinine 0.80 0.55 - 1.02 mg/dL 06/29/2021 3:58 PM CDT [facility] GFR, Estimated >60 >60 mL/min/1.7 3m2 06/29/2021 3:58 PM CDT [facility] Blood Venipuncture / Unknown 06/29/2021 2:44 PM CDT 06/29/2021 2:44 PM CDT Ozzy Rich MD LAB_1 Performing Organization Address [facility] de Phone Number [facility] [address] [place] [address], [facility] [phone] * (ABNORMAL) POCT glycosylated hemoglobin (Hb A1C) (06/29/2021 2:22 PM CDT) Hemoglobin A1C (Rapid) 8.9(A) 5.6 % POCT Cartridge Lot# [id number] POCT Blood 06/29/2021 2:22 PM CDT Ozzy Rich MD ET POINT OF CARE TEST ENTER/EDIT ORDERABLES Performing Organization Address [facility] Co de Phone Number POCT from Last 3 Months or Most Recently Relevant to Health Maintenance
--- OUTSIDE RECORDS SUMMARY | 2024-05-20 08:29 | XMS_ITS ---
Author Organization [facility] Address [address] [place] [address] Care Team Providers Care Superintendent Laundry Name Role Phone Unavailable Primary Care Provider Unavailabl e Active Problems Problem Noted Date Diagnosed Date Malignant Neoplasm Of Breast Female Left 024 Cancer Staging:Pathologic stage from 06/18/2023:Stage IIA(pT2, pN0, cM0, G3, ER-, [place]-, HER2+) - Unsigned Current Oncology Plans No current plan information found. Past Plans No past plan information found. Radiation Treatments * Plan Last Treated On Elapsed Days Fractions Treated Prescribed Fraction Dose Prescribed Total Dose [id number] 12/19/2023 10 4 of 4 250 cGy 1,000 cGy [id number] 12/13/2023 4 5 of 5 520 cGy 2,600 cGy Reference Point Last Treated On Elapsed Days Session Dose Total Dose [id number] 12/19/2023 10 250 cGy 3,600 cGy
--- OUTSIDE RECORDS SUMMARY | 2024-05-20 08:29 | XMS_ITS | Referral Summary ---
Author Organization [facility] Address [address] [place] [address]. [place] [address] Care Team Providers Care Welding Machine Operator Helper Arc Name Role Phone No Ref-Primary, Physician Primary [...] Comments Blood Pressure 124/78 12/05/2019 2:59 PM REGULATORY INTERN Pulse 84 12/05/2019 2:59 PM REGULATORY INTERN Temperature 37.8 ??C (100 ??F) 12/05/2019 2:59 PM REGULATORY INTERN Respiratory Rate 16 12/05/2019 2:59 PM REGULATORY INTERN Oxygen Saturation 96% 12/05/2019 2:59 PM REGULATORY INTERN Inhaled Oxygen Concentration - - Weight 68 kg (150 lb) 12/05/2019 2:59 PM REGULATORY INTERN Height - - Body Mass Index - - Plan of Treatment Not on file Care Teams Welding Machine Operator Helper Arc Relationship Specialty Start Date End Date No Ref-Primary, Physician PCP - General 12/05/19
--- OUTSIDE RECORDS SUMMARY | 2024-05-20 08:29 | XMS_ITS | Referral Summary ---
Author Organization [facility] Address [address] [place] [address] Care Team Providers Care Swatch Folder Name Role Phone Unavailable Primary Care Provider Unavailabl e Source Comments Patient records contain information from all sites at [facility]. For routine questions regarding patient records, call [phone] during business hours, M-F 8:00 AM - 5:00 PM Central Time. Record requests for emergency care only can be directed to [phone] at any time.[facility] Allergies Active Allergy Reactions Criticality Noted Date [...] from 06/18/2023:Stage IIA(pT2, pN0, cM0, G3, ER-, [place]-, HER2+) - Unsigned Social History Tobacco Use [...] Comments Blood Pressure 120/51 11/28/2023 1:18 PM DIPPER FISH Pulse 90 11/28/2023 1:18 PM DIPPER FISH Temperature 36.2 ??C (97.1 ??F) 12/17/2023 4:14 [...] CDT) Narrative IIMS - 11/25/2023 3:41 PM DIPPER FISH This order has been created and auto-finalized [...]
--- OUTSIDE RECORDS SUMMARY | 2024-05-20 08:29 | XMS_ITS ---
Author Organization [facility] Address [address] [place] [address] Care Team Providers Care Pharmacy Sales Assistant Name Role Phone Unavailable Unavailable Unavailable Surgery Details Not on file Complications Check Surgery Details section. Procedure Estimated Blood Loss Check Surgery Details section. Procedure Findings Check Surgery Details section. Procedure Specimens Taken Check Surgery Details section.
--- NOTE | 2024-05-20 08:45 | CRLHL7_ITS ---
For Patients: As a result of the Century Cures Act, medical imaging exams and procedure reports are released immediately into your electronic medical record. You may view this report before your referring provider. If you have questions, please contact your health care provider. BILATERAL SCREENING MAMMOGRAM WITH COMPUTER-AIDED DETECTION AND TOMOSYNTHESIS TECHNIQUE: CC and MLO views were obtained. These mammographic images have been obtained using full-field digital technique. These mammographic images were interpreted with the benefit of computer-aided detection. Breast Tomosynthesis was used in this interpretation. COMPARISON FILM: 06/18/23, 05/24/23, 03/18/15. FINDINGS: The breasts are heterogeneously dense, which may obscure small masses IMPRESSION: There is no radiographic evidence for malignancy. ASSESSMENT: BI-RADS Category 2: Benign RECOMMENDATION: Routine screening mammogram in 1 year. A lay language report of this examination will be provided to the patient. Domingo Jackson M.D. Diagnostic Radiologist [email or web address] BRANDON/[email or web address] Transcribed: 6:04 p.korina villa/Dictated by: Domingo Jackson MD @ 05/21/2024 10:15:00 AM (Electronically Signed)
== END 2024-05-20 08:27 | disposition home or self-care (01) ==
LOC: MAMMO 08:27
PROVIDERS: PCP Emergency Medicine; Visit Provider Internal Medicine Hematology & Oncology
DX: Z12.31 Encounter for screening mammogram for malignant neoplasm of breast (principal); R92.2 Inconclusive mammogram
CPT/HCPCS: 77063; 77067

== ENCOUNTER 2024-05-22 13:43 | Outpatient (CLI) | payer BC, SELFPAY ==
--- OUTSIDE RECORDS SUMMARY | 2024-05-22 13:52 | XMS_ITS | Clinical Summary ---
Author Organization [facility] Address [address] [place] [address]. [place] [address] Care Team Providers Care Laborer Pullet Farm Name Role Phone No Ref-Primary, Physician Primary [...] Comments Blood Pressure 124/78 12/05/2019 2:59 PM ASSISTANT MERCHANDISER Pulse 84 12/05/2019 2:59 PM ASSISTANT MERCHANDISER Temperature 37.8 ??C (100 ??F) 12/05/2019 2:59 PM ASSISTANT MERCHANDISER Respiratory Rate 16 12/05/2019 2:59 PM ASSISTANT MERCHANDISER Oxygen Saturation 96% 12/05/2019 2:59 PM ASSISTANT MERCHANDISER Inhaled Oxygen Concentration - - Weight 68 kg (150 lb) 12/05/2019 2:59 PM ASSISTANT MERCHANDISER Height - - Body Mass Index - - Plan of Treatment Not on file Care Teams Laborer Pullet Farm Relationship Specialty Start Date End Date No Ref-Primary, Physician PCP - General 12/05/19
--- OUTSIDE RECORDS SUMMARY | 2024-05-22 13:52 | XMS_ITS ---
Author Organization [facility] Address [address] [place] [address] Care Team Providers Care Earrings Fabricator Name Role Phone Unavailable Unavailable Unavailable Surgery Details Not on file Complications Check Surgery Details section. Procedure Estimated Blood Loss Check Surgery Details section. Procedure Findings Check Surgery Details section. Procedure Specimens Taken Check Surgery Details section.
--- OUTSIDE RECORDS SUMMARY | 2024-05-22 13:52 | XMS_ITS ---
Author Organization [facility] Address [address] [place] [address] Care Team Providers Care Summer Counselor Name Role Phone Unavailable Primary Care Provider Unavailabl e Active Problems Problem Noted Date Diagnosed Date Malignant Neoplasm Of Breast Female Left 024 Cancer Staging:Pathologic stage from 06/18/2023:Stage IIA(pT2, pN0, cM0, G3, ER-, [place]-, HER2+) - Unsigned Current Oncology Plans No current plan information found. Past Plans No past plan information found. Radiation Treatments * Plan Last Treated On Elapsed Days Fractions Treated Prescribed Fraction Dose Prescribed Total Dose [id number] 12/19/2023 10 4 of 4 250 cGy 1,000 cGy [id number] 12/13/2023 4 5 of 5 520 cGy 2,600 cGy Reference Point Last Treated On Elapsed Days Session Dose Total Dose [id number] 12/19/2023 10 250 cGy 3,600 cGy
--- OUTSIDE RECORDS SUMMARY | 2024-05-22 13:52 | XMS_ITS | Clinical Summary ---
[facility] Organization [facility] Address [address] [place] [address] Care Team Providers Care Content Production Specialist Name Role Phone Unavailable Primary Care Provider Unavailabl e Source Comments You are receiving this document as you are listed as the primary care provider,follow-up provider, or the patient has been referred to you for consultation.This is in compliance with the Medicare and[facility] EHR Incentive Program,which states Providers who transition their patient to another setting of careor provider of care or refers their patient to another provider of care shouldprovide summary care record for each transition of care or referral. [facility] Allergies No known active allergies Medications Medication [...] Controlled type 1 diabetes mellitus without complication ([facility]) Use 1 Each to test as needed. 1 Each 06/29/2021 Active levothyroxine (SYNTHROID) 100 MCG tabletIndications: Hypothyroidism (acquired) ([facility]) Take 1 Tablet by mouth daily. 90 [...] 4 <30 mg/g 06/29/2021 4:01 PM CDT [facility] Urine Non-blood Collection / Unknown 06/29/2021 2:56 PM CDT 06/29/2021 2:56 PM CDT Ozzy Rich MD LAB_1 [facility] [address] [place] [address], [facility] [phone] * (ABNORMAL) Lipid Panel - LDLD If Trig High (06/29/2021 2:44 PM CDT) Cholesterol 230(H) 0 - 199 mg/dL 06/29/2021 3:58 PM CDT [facility] Triglyceride 309(H) <=149 mg/dL 06/29/2021 3:58 PM CDT [facility] HDL Cholesterol 52 >=40 mg/dL 3:58 PM CDT [facility] LDL, Calculated 116 <130 mg/dL 3:58 PM CDT [facility] Non HDL Chol, Calculated 178(H) <=159 mg/dL 06/29/2021 3:58 PM CDT [facility] Cholesterol/HDL Ratio 4.4 06/29/2021 3:58 PM CDT [facility] Hours Fasting 2 06/29/2021 3:58 PM CDT [facility] Blood Venipuncture / Unknown 06/29/2021 2:44 PM CDT 06/29/2021 2:44 PM CDT Ozzy Rich MD LAB_1 Performing Organization Address [facility] de Phone Number [facility] [address] [place] [address], [facility] [phone] * Creatinine (06/29/2021 2:44 PM CDT) Creatinine 0.80 0.55 - 1.02 mg/dL 06/29/2021 3:58 PM CDT [facility] GFR, Estimated >60 >60 mL/min/1.7 3m2 06/29/2021 3:58 PM CDT [facility] Blood Venipuncture / Unknown 06/29/2021 2:44 PM CDT 06/29/2021 2:44 PM CDT Ozzy Rich MD LAB_1 Performing Organization Address [facility] de Phone Number [facility] [address] [place] [address], [facility] [phone] * (ABNORMAL) POCT glycosylated hemoglobin (Hb A1C) (06/29/2021 2:22 PM CDT) Hemoglobin A1C (Rapid) 8.9(A) 5.6 % POCT Cartridge Lot# [id number] POCT Blood 06/29/2021 2:22 PM CDT Ozzy Rich MD ET POINT OF CARE TEST ENTER/EDIT ORDERABLES Performing Organization Address [facility] Co de Phone Number POCT from Last 3 Months or Most Recently Relevant to Health Maintenance
--- OUTSIDE RECORDS SUMMARY | 2024-05-22 13:52 | XMS_ITS | Clinical Summary ---
Author Organization [facility] Address [address] [place] [address] Care Team Providers Care Bottle Packing Machine Cleaner Name Role Phone Unavailable Primary Care Provider Unavailabl e Source Comments Patient records contain information from all sites at [facility]. For routine questions regarding patient records, call [phone] during business hours, M-F 8:00 AM - 5:00 PM Central Time. Record requests for emergency care only can be directed to [phone] at any time.[facility] Allergies Active Allergy Reactions Criticality Noted [...] from 06/18/2023:Stage IIA(pT2, pN0, cM0, G3, ER-, [place]-, HER2+) - Unsigned Social History Tobacco Use [...] Comments Blood Pressure 120/51 11/28/2023 1:18 PM BLEACHING SUPERVISOR Pulse 90 11/28/2023 1:18 PM BLEACHING SUPERVISOR Temperature 36.2 ??C (97.1 ??F) 12/17/2023 4:14 [...] CDT) Narrative IIMS - 11/25/2023 3:41 PM BLEACHING SUPERVISOR This order has been created and auto-finalized [...]
--- OUTSIDE RECORDS SUMMARY | 2024-05-22 13:52 | XMS_ITS | Referral Summary ---
Author Organization [facility] Address [address] [place] [address] Care Team Providers Care Raveler Name Role Phone Unavailable Primary Care Provider Unavailabl e Source Comments Patient records contain information from all sites at [facility]. For routine questions regarding patient records, call [phone] during business hours, M-F 8:00 AM - 5:00 PM Central Time. Record requests for emergency care only can be directed to [phone] at any time.[facility] Allergies Active Allergy Reactions Criticality Noted Date [...] from 06/18/2023:Stage IIA(pT2, pN0, cM0, G3, ER-, [place]-, HER2+) - Unsigned Social History Tobacco Use [...] Comments Blood Pressure 120/51 11/28/2023 1:18 PM LIBRARIAN Pulse 90 11/28/2023 1:18 PM LIBRARIAN Temperature 36.2 ??C (97.1 ??F) 12/17/2023 4:14 [...] CDT) Narrative IIMS - 11/25/2023 3:41 PM LIBRARIAN This order has been created and auto-finalized [...]
--- OUTSIDE RECORDS SUMMARY | 2024-05-22 13:52 | XMS_ITS | Referral Summary ---
Author Organization [facility] Address [address] [place] [address]. [place] [address] Care Team Providers Care Motion Picture Equipment Supervisor Name Role Phone No Ref-Primary, Physician Primary [...] Comments Blood Pressure 124/78 12/05/2019 2:59 PM TAPER AND FLOATER Pulse 84 12/05/2019 2:59 PM TAPER AND FLOATER Temperature 37.8 ??C (100 ??F) 12/05/2019 2:59 PM TAPER AND FLOATER Respiratory Rate 16 12/05/2019 2:59 PM TAPER AND FLOATER Oxygen Saturation 96% 12/05/2019 2:59 PM TAPER AND FLOATER Inhaled Oxygen Concentration - - Weight 68 kg (150 lb) 12/05/2019 2:59 PM TAPER AND FLOATER Height - - Body Mass Index - - Plan of Treatment Not on file Care Teams Motion Picture Equipment Supervisor Relationship Specialty Start Date End Date No Ref-Primary, Physician PCP - General 12/05/19
== END 2024-05-22 13:44 | disposition home or self-care (01) ==
LOC: RAD 13:44
PROVIDERS: PCP Emergency Medicine; Visit Provider Internal Medicine Hematology & Oncology
DX: C50.912 Malignant neoplasm of unspecified site of left female breast (principal); I35.0 Nonrheumatic aortic (valve) stenosis; I07.1 Rheumatic tricuspid insufficiency
CPT/HCPCS: 93306

== ENCOUNTER 2024-06-18 12:00 | Outpatient (RCR) | payer BC, SELFPAY ==
[2023-12-26 10:31] LABS: Basophils Percent Auto 0.7 % (0.0-3.0); Hematocrit 33.5 % (33.0-51.0); Mean Corpuscular HGB Conc 33 gm/dL (32-36); Mean Corpuscular Hemoglobin 35 pg (26-34); Mean Corpuscular Volume 106 fL (80-100); Monocytes Percent Auto 12.2 % (0.0-11.0); Neutrophils Percent Auto 53.1 % (42.0-72.0); Platelet Count* 145 K/uL (140-440); RDW Coefficient of Variation % 12.8 % (11.5-15.5); Red Blood Count 3.16 m/uL (4.00-5.20); White Blood Count* 3.03 K/uL (4.50-11.00)
[2023-12-26 10:35] LABS: Slide Review Reflex No
[2023-12-26 10:47] LABS: Chloride* 106 mmol/L (96-114)
[2023-12-26 10:48] LABS: Potassium* 4.3 mmol/L (3.6-5.1); Sodium* 138 mmol/L (135-149)
[2023-12-26 10:51] LABS: Alanine Aminotransferase* 27 U/L (4-35); Alkaline Phosphatase* 101 U/L (40-150); Anion Gap 4 mEq/L (7-15); Aspartate Amino Transferase* 34 U/L (12-35); Bilirubin Total* 0.4 mg/dL (0.1-1.5); Blood Urea Nitrogen* 19 mg/dL (7-30); Carbon Dioxide* 28 mmol/L (20-32); Creatinine* 0.8 mg/dL (0.5-1.5); Estimated Glomerular Filt Rate 83 ml/min; Glucose* 138 mg/dL (60-115); Total Protein* 7.3 g/dL (6.0-8.3)
[2023-12-26 10:52] LABS: Calcium* 9.4 mg/dL (8.4-10.6)
[2023-12-26] MEDS: 0.9 % SODIUM CHLORIDE 250 ml IV (12:00)
[2023-12-26] MEDS: PERTUZUMAB 420 MG, TUBING SECONDARY 1 EACH in 0.9 % SODIUM CHLORIDE 250 ml 250 ML 528 MG IV (12:15)
[2023-12-26] MEDS: HEPARIN 500 UNIT/5 ML SYRINGE IVF (13:33)
[2023-12-26] MEDS: SODIUM CHLORIDE 0.9 % (FLUSH) 10 ML SYRINGE IVF (13:33)
[2024-01-16 08:11] LABS: Basophils Percent Auto 0.9 % (0.0-3.0); Eosinophils Percent Auto 1.6 % (0.0-7.0); Hematocrit 34.4 % (33.0-51.0); Hemoglobin* 11.7 gm/dL (12.0-16.0); Immature Granulocytes Pct Auto 0.3 %; Lymphocytes Percent Auto 37.5 % (20-44); Mean Corpuscular HGB Conc 34 gm/dL (32-36); Mean Corpuscular Hemoglobin 35 pg (26-34); Mean Corpuscular Volume 102 fL (80-100); Monocytes Percent Auto 11.4 % (0.0-11.0); Neutrophils Percent Auto 48.3 % (42.0-72.0); Platelet Count* 154 K/uL (140-440); RDW Coefficient of Variation % 11.4 % (11.5-15.5); Red Blood Count 3.39 m/uL (4.00-5.20); White Blood Count* 3.17 K/uL (4.50-11.00)
[2024-01-16 08:14] VITALS: BP 109/72; PULSE 82; RESP 16; TEMP 35.7; O2SAT 95
[2024-01-16 08:22] LABS: Slide Review Reflex No
[2024-01-16 08:24] LABS: Albumin* 3.9 g/dL (3.3-5.0)
[2024-01-16 08:25] LABS: Chloride* 105 mmol/L (96-114); Potassium* 4.2 mmol/L (3.6-5.1); Sodium* 137 mmol/L (135-149)
[2024-01-16 08:27] LABS: Anion Gap 5 mEq/L (7-15); Aspartate Amino Transferase* 39 U/L (12-35); Bilirubin Total* 0.5 mg/dL (0.1-1.5); Carbon Dioxide* 27 mmol/L (20-32); Creatinine* 0.9 mg/dL (0.5-1.5); Estimated Glomerular Filt Rate 72 ml/min
[2024-01-16 08:28] LABS: Alanine Aminotransferase* 31 U/L (4-35); Alkaline Phosphatase* 94 U/L (40-150); Blood Urea Nitrogen* 20 mg/dL (7-30); Calcium* 9.4 mg/dL (8.4-10.6); Glucose* 146 mg/dL (60-115); Total Protein* 7.2 g/dL (6.0-8.3)
[2024-01-16] MEDS: SODIUM CHLORIDE 0.9 % (FLUSH) 10 ML SYRINGE IVF ×2 (08:30→10:29)
[2024-01-16] MEDS: 0.9 % SODIUM CHLORIDE 250 ml IV (09:07)
[2024-01-16] MEDS: PERTUZUMAB 420 MG, TUBING SECONDARY 1 EACH in 0.9 % SODIUM CHLORIDE 250 ml 250 ML 528 MG IV (09:11)
[2024-01-16] MEDS: HEPARIN 500 UNIT/5 ML SYRINGE IVF (10:29)
[2024-02-06 08:44] LABS: Basophils Percent Auto 0.8 % (0.0-3.0); Eosinophils Percent Auto 2.3 % (0.0-7.0); Hematocrit 35.9 % (33.0-51.0); Hemoglobin* 12.2 gm/dL (12.0-16.0); Immature Granulocytes Pct Auto 0.5 %; Lymphocytes Percent Auto 33.5 % (20-44); Mean Corpuscular HGB Conc 34 gm/dL (32-36); Mean Corpuscular Hemoglobin 34 pg (26-34); Mean Corpuscular Volume 99 fL (80-100); Monocytes Percent Auto 10.1 % (0.0-11.0); Neutrophils Percent Auto 52.8 % (42.0-72.0); Platelet Count* 167 K/uL (140-440); RDW Coefficient of Variation % 11.3 % (11.5-15.5); Red Blood Count 3.62 m/uL (4.00-5.20); White Blood Count* 3.88 K/uL (4.50-11.00)
[2024-02-06 08:49] LABS: Slide Review Reflex No
[2024-02-06 08:57] LABS: Chloride* 107 mmol/L (96-114)
[2024-02-06 08:58] LABS: Potassium* 4.3 mmol/L (3.6-5.1); Sodium* 137 mmol/L (135-149)
[2024-02-06 09:00] LABS: Bilirubin Total* 0.6 mg/dL (0.1-1.5); Creatinine* 0.9 mg/dL (0.5-1.5); Estimated Glomerular Filt Rate 72 ml/min
[2024-02-06 09:01] LABS: Alanine Aminotransferase* 24 U/L (4-35); Alkaline Phosphatase* 90 U/L (40-150); Anion Gap 1 mEq/L (7-15); Aspartate Amino Transferase* 33 U/L (12-35); Blood Urea Nitrogen* 22 mg/dL (7-30); Calcium* 9.2 mg/dL (8.4-10.6); Carbon Dioxide* 29 mmol/L (20-32); Glucose* 146 mg/dL (60-115); Total Protein* 7.1 g/dL (6.0-8.3)
[2024-02-06] MEDS: PERTUZUMAB 420 MG, TUBING SECONDARY 1 EACH in 0.9 % SODIUM CHLORIDE 250 ml 250 ML 528 MG IV (10:15)
[2024-02-06] MEDS: HEPARIN 500 UNIT/5 ML SYRINGE IVF (11:27)
[2024-02-06] MEDS: SODIUM CHLORIDE 0.9 % (FLUSH) 10 ML SYRINGE IVF (11:27)
[2024-02-06] MEDS: 0.9 % SODIUM CHLORIDE 250 ml IV (11:28)
[2024-02-27 13:00] VITALS: BP 118/74; PULSE 89; RESP 15; TEMP 37.1; O2SAT 95
[2024-02-27 13:15] LABS: Basophils Absolute Auto 0.05 K/uL (0.00-0.30); Eosinophils Absolute Auto 0.12 K/uL (0.00-0.50); Eosinophils Percent Auto 2.3 % (0.0-7.0); Hematocrit 35.8 % (33.0-51.0); Hemoglobin* 12.1 gm/dL (12.0-16.0); Immature Granulocytes Abs Auto 0.02 K/uL (0.00-0.30); Immature Granulocytes Pct Auto 0.4 %; Lymphocytes Absolute Auto 1.54 K/uL (0.90-2.90); Lymphocytes Percent Auto 29.4 % (20-44); Mean Corpuscular HGB Conc 34 gm/dL (32-36); Mean Corpuscular Hemoglobin 33 pg (26-34); Mean Corpuscular Volume 98 fL (80-100); Monocytes Percent Auto 11.3 % (0.0-11.0); Neutrophils Absolute Auto 2.91 K/uL (1.7-7.0); Neutrophils Percent Auto 55.6 % (42.0-72.0); Platelet Count* 169 K/uL (140-440); RDW Coefficient of Variation % 11.1 % (11.5-15.5); Red Blood Count 3.67 m/uL (4.00-5.20); White Blood Count* 5.23 K/uL (4.50-11.00)
[2024-02-27 13:18] LABS: Slide Review Reflex No
[2024-02-27 13:26] LABS: Chloride* 106 mmol/L (96-114)
[2024-02-27 13:27] LABS: Albumin* 4.1 g/dL (3.3-5.0); Potassium* 4.3 mmol/L (3.6-5.1); Sodium* 137 mmol/L (135-149)
[2024-02-27 13:29] LABS: Anion Gap 3 mEq/L (7-15); Bilirubin Total* 0.6 mg/dL (0.1-1.5); Carbon Dioxide* 28 mmol/L (20-32); Creatinine* 0.9 mg/dL (0.5-1.5); Estimated Glomerular Filt Rate 72 ml/min
[2024-02-27 13:30] LABS: Alanine Aminotransferase* 27 U/L (4-35); Alkaline Phosphatase* 100 U/L (40-150); Aspartate Amino Transferase* 32 U/L (12-35); Blood Urea Nitrogen* 20 mg/dL (7-30); Calcium* 9.2 mg/dL (8.4-10.6); Glucose* 184 mg/dL (60-115); Total Protein* 7.5 g/dL (6.0-8.3)
[2024-02-27] MEDS: PERTUZUMAB 420 MG, TUBING SECONDARY 1 EACH in 0.9 % SODIUM CHLORIDE 250 ml 250 ML 528 MG IV (14:09)
[2024-02-27] MEDS: HEPARIN 500 UNIT/5 ML SYRINGE IVF (14:13)
[2024-02-27] MEDS: SODIUM CHLORIDE 0.9 % (FLUSH) 10 ML SYRINGE IVF (14:14)
[2024-02-27] MEDS: 0.9 % SODIUM CHLORIDE 250 ml IV (14:14)
[2024-03-19] MEDS: SODIUM CHLORIDE 0.9 % (FLUSH) 10 ML SYRINGE IVF (08:40)
[2024-03-19 08:44] LABS: Basophils Percent Auto 0.9 % (0.0-3.0); Eosinophils Percent Auto 2.3 % (0.0-7.0); Hematocrit 37.2 % (33.0-51.0); Hemoglobin* 12.6 gm/dL (12.0-16.0); Immature Granulocytes Pct Auto 0.2 %; Lymphocytes Percent Auto 30.6 % (20-44); Mean Corpuscular HGB Conc 34 gm/dL (32-36); Mean Corpuscular Hemoglobin 33 pg (26-34); Mean Corpuscular Volume 96 fL (80-100); Platelet Count* 172 K/uL (140-440); RDW Coefficient of Variation % 11.2 % (11.5-15.5); Red Blood Count 3.86 m/uL (4.00-5.20); White Blood Count* 4.38 K/uL (4.50-11.00)
[2024-03-19 08:48] LABS: Slide Review Reflex No
[2024-03-19 09:04] LABS: Albumin* 4.2 g/dL (3.3-5.0); Chloride* 105 mmol/L (96-114); Sodium* 138 mmol/L (135-149)
[2024-03-19 09:05] LABS: Potassium* 4.5 mmol/L (3.6-5.1)
[2024-03-19 09:07] LABS: Alanine Aminotransferase* 20 U/L (4-35); Alkaline Phosphatase* 89 U/L (40-150); Anion Gap 6 mEq/L (7-15); Aspartate Amino Transferase* 31 U/L (12-35); Bilirubin Total* 0.6 mg/dL (0.1-1.5); Blood Urea Nitrogen* 22 mg/dL (7-30); Calcium* 9.6 mg/dL (8.4-10.6); Carbon Dioxide* 27 mmol/L (20-32); Creatinine* 0.9 mg/dL (0.5-1.5); Estimated Glomerular Filt Rate 72 ml/min; Glucose* 146 mg/dL (60-115); Total Protein* 7.1 g/dL (6.0-8.3)
[2024-03-19] MEDS: 0.9 % SODIUM CHLORIDE 250 ml IV (10:06)
[2024-03-19] MEDS: PERTUZUMAB 420 MG, TUBING SECONDARY 1 EACH in 0.9 % SODIUM CHLORIDE 250 ml 250 ML 528 MG IV (10:11)
[2024-03-19] MEDS: HEPARIN 500 UNIT/5 ML SYRINGE IVF (11:31)
[2024-04-10 08:02] VITALS: BP 138/76; PULSE 74; RESP 14; TEMP 35.8; O2SAT 97
[2024-04-10] MEDS: PERTUZUMAB 420 MG, TUBING SECONDARY 1 EACH in 0.9 % SODIUM CHLORIDE 250 ml 250 ML 528 MG IV (08:46)
[2024-04-10] MEDS: SODIUM CHLORIDE 0.9 % (FLUSH) 10 ML SYRINGE IVF (10:09)
[2024-04-10] MEDS: HEPARIN 500 UNIT/5 ML SYRINGE IVF (10:09)
[2024-04-30 13:23] VITALS: BP 126/81; PULSE 72; RESP 16; TEMP 36.2; O2SAT 96
[2024-04-30 13:42] LABS: Basophils Absolute Auto 0.05 K/uL (0.00-0.30); Basophils Percent Auto 0.9 % (0.0-3.0); Eosinophils Absolute Auto 0.11 K/uL (0.00-0.50); Eosinophils Percent Auto 1.9 % (0.0-7.0); Hematocrit 38.1 % (33.0-51.0); Hemoglobin* 12.6 gm/dL (12.0-16.0); Immature Granulocytes Abs Auto 0.02 K/uL (0.00-0.30); Immature Granulocytes Pct Auto 0.3 %; Lymphocytes Absolute Auto 1.92 K/uL (0.90-2.90); Lymphocytes Percent Auto 33.2 % (20-44); Mean Corpuscular HGB Conc 33 gm/dL (32-36); Mean Corpuscular Hemoglobin 31 pg (26-34); Mean Corpuscular Volume 95 fL (80-100); Monocytes Percent Auto 10.6 % (0.0-11.0); Neutrophils Absolute Auto 3.07 K/uL (1.7-7.0); Neutrophils Percent Auto 53.1 % (42.0-72.0); Platelet Count* 179 K/uL (140-440); RDW Coefficient of Variation % 11.8 % (11.5-15.5); Red Blood Count 4.01 m/uL (4.00-5.20); White Blood Count* 5.78 K/uL (4.50-11.00)
[2024-04-30 13:47] LABS: Slide Review Reflex No
[2024-04-30 13:53] LABS: Albumin* 4.3 g/dL (3.3-5.0)
[2024-04-30 13:54] LABS: Chloride* 104 mmol/L (96-114); Potassium* 4.3 mmol/L (3.6-5.1); Sodium* 136 mmol/L (135-149)
[2024-04-30 13:56] LABS: Anion Gap 4 mEq/L (7-15); Aspartate Amino Transferase* 34 U/L (12-35); Bilirubin Total* 0.7 mg/dL (0.1-1.5); Carbon Dioxide* 28 mmol/L (20-32); Estimated Glomerular Filt Rate 64 ml/min; Total Protein* 7.3 g/dL (6.0-8.3)
[2024-04-30 13:57] LABS: Alanine Aminotransferase* 22 U/L (4-35); Alkaline Phosphatase* 107 U/L (40-150); Blood Urea Nitrogen* 18 mg/dL (7-30); Calcium* 9.3 mg/dL (8.4-10.6); Glucose* 126 mg/dL (60-115)
[2024-04-30] MEDS: 0.9 % SODIUM CHLORIDE 250 ml IV (14:35)
[2024-04-30] MEDS: PERTUZUMAB 420 MG, TUBING SECONDARY 1 EACH in 0.9 % SODIUM CHLORIDE 250 ml 250 ML 528 MG IV (14:54)
[2024-04-30] MEDS: SODIUM CHLORIDE 0.9 % (FLUSH) 10 ML SYRINGE IVF (16:09)
[2024-04-30] MEDS: HEPARIN 500 UNIT/5 ML SYRINGE IVF (16:09)
[2024-05-21 10:06] VITALS: BP 112/72; PULSE 70; RESP 16; TEMP 36.1; O2SAT 96
[2024-05-21 10:30] LABS: Basophils Absolute Auto 0.04 K/uL (0.00-0.30); Basophils Percent Auto 0.9 % (0.0-3.0); Eosinophils Absolute Auto 0.09 K/uL (0.00-0.50); Eosinophils Percent Auto 1.9 % (0.0-7.0); Hemoglobin* 12.8 gm/dL (12.0-16.0); Immature Granulocytes Abs Auto 0.02 K/uL (0.00-0.30); Immature Granulocytes Pct Auto 0.4 %; Lymphocytes Absolute Auto 1.43 K/uL (0.90-2.90); Lymphocytes Percent Auto 30.5 % (20-44); Mean Corpuscular HGB Conc 34 gm/dL (32-36); Mean Corpuscular Hemoglobin 32 pg (26-34); Mean Corpuscular Volume 94 fL (80-100); Monocytes Percent Auto 10.7 % (0.0-11.0); Neutrophils Absolute Auto 2.61 K/uL (1.7-7.0); Neutrophils Percent Auto 55.6 % (42.0-72.0); Platelet Count* 167 K/uL (140-440); RDW Coefficient of Variation % 11.8 % (11.5-15.5); Red Blood Count 4.03 m/uL (4.00-5.20); White Blood Count* 4.69 K/uL (4.50-11.00)
[2024-05-21 10:32] LABS: Slide Review Reflex No
[2024-05-21 10:46] LABS: Albumin* 4.2 g/dL (3.3-5.0); Chloride* 103 mmol/L (96-114); Sodium* 136 mmol/L (135-149)
[2024-05-21 10:47] LABS: Potassium* 4.4 mmol/L (3.6-5.1)
[2024-05-21 10:49] LABS: Alkaline Phosphatase* 88 U/L (40-150); Anion Gap 6 mEq/L (7-15); Aspartate Amino Transferase* 29 U/L (12-35); Bilirubin Total* 0.7 mg/dL (0.1-1.5); Blood Urea Nitrogen* 22 mg/dL (7-30); Carbon Dioxide* 27 mmol/L (20-32); Estimated Glomerular Filt Rate 64 ml/min; Total Protein* 7.2 g/dL (6.0-8.3)
[2024-05-21 10:50] LABS: Alanine Aminotransferase* 20 U/L (4-35); Calcium* 9.4 mg/dL (8.4-10.6); Glucose* 135 mg/dL (60-115)
[2024-05-21] MEDS: PERTUZUMAB 420 MG, TUBING SECONDARY 1 EACH in 0.9 % SODIUM CHLORIDE 250 ml 250 ML 528 MG IV (11:31)
[2024-05-21] MEDS: HEPARIN 500 UNIT/5 ML SYRINGE IVF (14:21)
[2024-05-21] MEDS: 0.9 % SODIUM CHLORIDE 250 ml IV (14:21)
[2024-05-21] MEDS: SODIUM CHLORIDE 0.9 % (FLUSH) 10 ML SYRINGE IVF (14:21)
[2024-06-18] MEDS: PERTUZUMAB 420 MG, TUBING SECONDARY 1 EACH in 0.9 % SODIUM CHLORIDE 250 ml 250 ML 528 MG IV (13:36)
[2024-06-18] MEDS: 0.9 % SODIUM CHLORIDE 250 ml IV (13:37)
[2024-06-18] MEDS: SODIUM CHLORIDE 0.9 % (FLUSH) 10 ML SYRINGE IVF ×2 (13:37→14:56)
[2024-06-18] MEDS: HEPARIN 500 UNIT/5 ML SYRINGE IVF (14:56)
== END 2024-06-23 23:59 | disposition home or self-care (01) ==
LOC: CCIC 12:00
PROVIDERS: PCP Emergency Medicine; Referring Provider Emergency Medicine; Visit Provider Physician Assistant
DX: Z51.11 Encounter for antineoplastic chemotherapy (principal); C50.912 Malignant neoplasm of unspecified site of left female breast; Z17.1 Estrogen receptor negative status [ER-]; Z51.12 Encounter for antineoplastic immunotherapy; E10.9 Type 1 diabetes mellitus without complications; R21 Rash and other nonspecific skin eruption; E03.9 Hypothyroidism, unspecified
CPT/HCPCS: 36415; 36591; 80053; 85025; 96413; 96415; 96417; 99214; 99215; G0463; J1642; J7050; J9306; J9355

== ENCOUNTER 2024-10-22 14:50 | Outpatient (RCR) | payer BC, OTHER, SELFPAY ==
--- NOTE | 2024-07-01 11:30 | URNOTE ---
Per [facility] site Trastuzumab ([id number]) (does not require PA) and Pertuzumab ([id number]) has been approved x 17 doses (pt getting dose #17 on or around 07/09/2024). Authorization from 07/23/2023-07/14/2024 Order/auth #[id number]
[2024-07-09 13:27] LABS: Basophils Absolute Auto 0.04 K/uL (0.00-0.30); Basophils Percent Auto 0.6 % (0.0-3.0); Eosinophils Absolute Auto 0.12 K/uL (0.00-0.50); Eosinophils Percent Auto 1.8 % (0.0-7.0); Hematocrit 38.3 % (33.0-51.0); Hemoglobin* 12.9 gm/dL (12.0-16.0); Immature Granulocytes Abs Auto 0.03 K/uL (0.00-0.30); Immature Granulocytes Pct Auto 0.5 %; Lymphocytes Absolute Auto 1.71 K/uL (0.90-2.90); Lymphocytes Percent Auto 26.2 % (20-44); Mean Corpuscular HGB Conc 34 gm/dL (32-36); Mean Corpuscular Hemoglobin 32 pg (26-34); Mean Corpuscular Volume 94 fL (80-100); Monocytes Percent Auto 8.7 % (0.0-11.0); Neutrophils Absolute Auto 4.05 K/uL (1.7-7.0); Neutrophils Percent Auto 62.2 % (42.0-72.0); Platelet Count* 164 K/uL (140-440); RDW Coefficient of Variation % 12.1 % (11.5-15.5); Red Blood Count 4.07 m/uL (4.00-5.20); White Blood Count* 6.52 K/uL (4.50-11.00)
[2024-07-09 13:28] LABS: Slide Review Reflex No
[2024-07-09 13:38] LABS: Albumin* 4.2 g/dL (3.3-5.0); Chloride* 106 mmol/L (96-114); Sodium* 136 mmol/L (135-149)
[2024-07-09 13:39] LABS: Potassium* 4.3 mmol/L (3.6-5.1)
[2024-07-09 13:41] LABS: Alanine Aminotransferase* 22 U/L (4-35); Alkaline Phosphatase* 96 U/L (40-150); Anion Gap 3 mEq/L (7-15); Aspartate Amino Transferase* 30 U/L (12-35); Bilirubin Total* 0.4 mg/dL (0.1-1.5); Blood Urea Nitrogen* 21 mg/dL (7-30); Carbon Dioxide* 27 mmol/L (20-32); Estimated Glomerular Filt Rate 63 ml/min; Glucose* 179 mg/dL (60-115); Total Protein* 7.2 g/dL (6.0-8.3)
[2024-07-09 13:42] LABS: Calcium* 9.2 mg/dL (8.4-10.6)
[2024-07-09 13:57] VITALS: BP 129/73; PULSE 77; RESP 16; TEMP 36.3; O2SAT 97
[2024-07-09] MEDS: PERTUZUMAB 420 MG, TUBING SECONDARY 1 EACH in 0.9 % SODIUM CHLORIDE 250 ml 250 ML 528 MG IV (14:31)
[2024-07-09] MEDS: HEPARIN 500 UNIT/5 ML SYRINGE IVF (15:50)
[2024-07-09] MEDS: SODIUM CHLORIDE 0.9 % (FLUSH) 10 ML SYRINGE IVF (15:50)
--- NOTE | 2024-08-04 11:33 | ONC.NURNOTE ---
Pt requested Medrol dosepack for dermatitis, noted that Dr. Quiroz had discussed ordering it. Confirmed with Dr. Quiroz; prescription submitted. LM updating pt f/u with her pharmacy to pick it up.
== END 2025-01-05 23:59 | disposition home or self-care (01) ==
LOC: CCIC 14:50
PROVIDERS: PCP Emergency Medicine; Referring Provider Emergency Medicine; Visit Provider Physician Assistant
DX: C50.912 Malignant neoplasm of unspecified site of left female breast (principal); Z17.1 Estrogen receptor negative status [ER-]
CPT/HCPCS: 36415; 36591; 80053; 85025; 96413; 96417; 99213; 99214; G0463; J1642; J7050; J9306; J9355

== ENCOUNTER 2025-03-23 08:35 | Outpatient (CLI) | payer OTHER, SELFPAY ==
--- NOTE | 2025-03-23 10:03 | P.ANES_ITS ---
Anesthesia Charges Start Date/Time Anesthesia Start Date: 03/23/25 Anesthesia Start Time: 09:30 Stop Date/Time Anesthesia Stop Date: 03/23/25 Anesthesia Stop Time: 10:01 Coding CPT Codes CPT Codes: LUPILLO LWR INTST NDSC NOS - 17061 ([id number]) P2 - PATIENT W/MILD SYST DISEASE, QK - ELECTRICAL CONTROLS ASSEMBLER 2-4 CNCRNT ANES PROC, QX - CUT OFF MACHINE OPERATOR SVC W/ MD MED DIRECTION
--- NOTE | 2025-03-23 10:03 | W.ANESCHARGE ---
Anesthesia Charges Start Date/Time Anesthesia Start Date: 03/23/25 Anesthesia Start Time: 09:30 Stop Date/Time Anesthesia Stop Date: 03/23/25 Anesthesia Stop Time: 10:01 Coding CPT Codes CPT Codes: LUPILLO LWR INTST NDSC NOS - 15468 ([id number]) P2 - PATIENT W/MILD SYST DISEASE, QK - ASSOCIATE PROFESSOR OF EDUCATION 2-4 CNCRNT ANES PROC, QX - MORTGAGE LOAN SPECIALIST SVC W/ MD MED DIRECTION
--- NOTE | 2025-03-23 12:18 | P.ANES_ITS ---
Anesthesia Charges Start Date/Time Anesthesia Start Date: 03/23/25 Anesthesia Start Time: 09:30 Stop Date/Time Anesthesia Stop Date: 03/23/25 Anesthesia Stop Time: 10:01 Coding CPT Codes CPT Codes: LUPILLO LWR INTST NDSC NOS - 69076 ([id number]) QK - TRAINING PROGRAM ASSISTANT 2-4 CNCRNT LUPILLO PROC, QX - ENGINE REPAIRER PRODUCTION SVC W/ MD MED DIRECTION, P2 - PATIENT W/MILD SYST DISEASE
--- NOTE | 2025-03-23 12:18 | W.ANESCHARGE ---
Anesthesia Charges Start Date/Time Anesthesia Start Date: 03/23/25 Anesthesia Start Time: 09:30 Stop Date/Time Anesthesia Stop Date: 03/23/25 Anesthesia Stop Time: 10:01 Coding CPT Codes CPT Codes: LUPILLO LWR INTST NDSC NOS - 69251 ([id number]) QK - AERIAL ERECTOR 2-4 CNCRNT LUPILLO PROC, QX - COOK FAST FOOD SVC W/ MD MED DIRECTION, P2 - PATIENT W/MILD SYST DISEASE
== END 2025-03-23 08:36 | disposition home or self-care (01) ==
LOC: OP CLINIC 08:36
PROVIDERS: PCP Emergency Medicine; Visit Provider Surgery
DX: Z12.11 Encounter for screening for malignant neoplasm of colon (principal); D12.8 Benign neoplasm of rectum
CPT/HCPCS: 00811; 00812; 45378; 88305; J2704

== ENCOUNTER 2025-05-03 14:30 | Outpatient (RCR) | payer OTHER, SELFPAY ==
--- NOTE | 2025-03-04 12:25 | ONC.NURNOTE ---
Patient called with an update on her condition. She states that two weeks ago she noted itching and bumps in her right axilla. The itching has resolved but she continues to feel the lumps. Danelle is concerned that the lumps are not going away. Patient scheduled to see Nneka 03/08 for assessment. To note, her breast cancer was on the left.
--- NOTE | 2025-03-17 15:58 | ONC.NURNOTE ---
Addendum entered by Tresa Sanchez RN 03/18/25 11:45: Reviewed with Nneka Martínez PA-C. Ok to cancel dx mammo/US. RTC April; previously scheduled 05/03. Pt is in agreement with this plan. Original Note: Patient is wondering if she should still follow through with her diagnostic mammogram and US. The lumps she was previously feeling in her axilla are almost undetectable. Patient informed that we will review with Nneka Martínez when she is here in clinic 03/18 and return her call.
== END 2025-07-17 23:59 | disposition home or self-care (01) ==
LOC: CCIC 14:30
PROVIDERS: PCP Emergency Medicine; Visit Provider Internal Medicine Hematology & Oncology
DX: C50.912 Malignant neoplasm of unspecified site of left female breast (principal); Z17.1 Estrogen receptor negative status [ER-]; E10.9 Type 1 diabetes mellitus without complications; Z79.4 Long term (current) use of insulin; E03.9 Hypothyroidism, unspecified
CPT/HCPCS: 99213; 99214; G0463

== ENCOUNTER 2025-06-15 08:24 | Outpatient (CLI) | payer OTHER, SELFPAY ==
--- NOTE | 2025-06-15 08:45 | CRLHL7_ITS ---
For Patients: As a result of the Century Cures Act, medical imaging exams and procedure reports are released immediately into your electronic medical record. You may view this report before your referring provider. If you have questions, please contact your health care provider. DIGITAL DIAGNOSTIC BILATERAL MAMMOGRAM USING TOMOSYNTHESIS AND COMPUTER-AIDED DETECTION RIGHT AXILLARY ULTRASOUND CLINICAL HISTORY: RIGHT axillary lump. COMPARISON: 05/20/2024, 06/18/2023, 06/04/2023. TECHNIQUE: Digital BILATERAL mammogram in four projections with computer-aided detection. Tomosynthesis was used in this interpretation. Real-time ultrasound imaging of RIGHT axilla with imaging documentation. BREAST COMPOSITION: The breasts are heterogeneously dense, which may obscure small masses. FINDINGS: 3D CC/MLO BILATERAL mammogram images submitted. Posttreatment changes LEFT breast. No suspicious masses within either breast. No architectural distortion within the RIGHT breast. No adenopathy or suspicious calcifications. Targeted RIGHT axillary ultrasound performed. Normal RIGHT axillary soft tissues. No adenopathy. No abnormal vascularity. IMPRESSION: No suspicious findings. No evidence of malignancy. RECOMMENDATIONS: Routine screening mammography. A lay language report of this examination will be provided to the patient. BI-RADS Category 2: Benign Dictated by Domingo Jackson MD @ 06/15/2025 9:59:18 AM jj/Dictated by: Domingo Jackson MD @ 06/15/2025 9:59:00 AM (Electronically Signed)
--- NOTE | 2025-06-15 09:15 | CRLHL7_ITS ---
For Patients: As a result of the Cures Act, medical imaging exams and procedure reports are released immediately into your electronic medical record. You may view this report before your referring provider. If you have questions, please contact your health care provider. SEE DIGITAL DIAGNOSTIC BILATERAL MAMMOGRAM PERFORMED SAME DAY CRL:[email or web address] villa/Dictated by: Domingo Jackson MD @ 06/15/2025 9:59:00 AM (Electronically Signed)
== END 2025-06-15 08:25 | disposition home or self-care (01) ==
LOC: MAMMO 08:25
PROVIDERS: PCP Emergency Medicine; Visit Provider Internal Medicine Hematology & Oncology
DX: R22.31 Localized swelling, mass and lump, right upper limb (principal); C50.912 Malignant neoplasm of unspecified site of left female breast
CPT/HCPCS: 76882; 77066; G0279